=== PATIENT | male | born 1970 | race Caucasian/White ===

== ENCOUNTER → 2016-07-18 | Outpatient (CLI) | payer BC ==
[2016-07-18 13:46] LABS: ALT/SGPT 37 U/L (12-78); BLOOD UREA NITROGEN 11 mg/dl (7-18); BUN/CREATININE RATIO 10.8 (10-20); CALCIUM 8.6 mg/dl (8.5-10.1); CARBON DIOXIDE 25 mmol/L (21-32); CHLORIDE 103 mmol/L (98-107); GLUCOSE 88 mg/dl (70-99); POTASSIUM 3.9 mmol/L (3.5-5.1); SODIUM 137 mmol/L (136-145)
[2016-07-18 13:51] LABS: CHOLESTEROL 258 mg/dl (0-200); CHOLESTEROL/HDL RATIO 3.5; HDL CHOLESTEROL 73 mg/dl; LDL CHOLESTEROL CALCULATED 158 mg/dl; TRIGLYCERIDES 137 mg/dl (0-150); VERY LOW DENSITY LIPOPROT CALC 27 mg/dl
== END | disposition home or self-care (01) ==
LOC: C.LABMFLN 11:03
PROVIDERS: ATTEND Family Medicine
DX: I10 Essential (primary) hypertension (principal); E78.5 Hyperlipidemia, unspecified

== ENCOUNTER → 2016-10-15 | Outpatient (CLI) | payer BC ==
[2016-10-15 15:35] LABS: BLOOD UREA NITROGEN 11 mg/dl (7-18); BUN/CREATININE RATIO 10.2 (10-20); CALCIUM 8.7 mg/dl (8.5-10.1); CARBON DIOXIDE 28 mmol/L (21-32); CHLORIDE 102 mmol/L (98-107); GLUCOSE 97 mg/dl (70-99); POTASSIUM 4.3 mmol/L (3.5-5.1); SODIUM 136 mmol/L (136-145)
[2016-10-15 15:38] LABS: ALT/SGPT 38 U/L (12-78); CHOLESTEROL 159 mg/dl (0-200); CHOLESTEROL/HDL RATIO 2.3; HDL CHOLESTEROL 69 mg/dl; TRIGLYCERIDES 99 mg/dl (0-150); VERY LOW DENSITY LIPOPROT CALC 20 mg/dl
== END | disposition home or self-care (01) ==
LOC: C.LABMFLN 08:48
PROVIDERS: ATTEND Family Medicine
DX: E78.5 Hyperlipidemia, unspecified (principal)

== ENCOUNTER 2023-11-13 05:24 | Observation (INO) ==
--- NOTE | 2023-10-13 11:33 | PAT Medication Instructions ---
Medication Instructions Date of Service October 13, 2023 Home Medications Medication Instructions Recorded rizatriptan 10 mg tablet 10 mg PO .COMPLEX PRN migraine 06/17/23 headache #9 tabs fremanezumab-vfrm 225 mg/1.5 mL 675 mg (4.5 mL) subcut Q3MO #4.5 mL 09/18/23 subcutaneous syringe (Ajovy Syringe) gabapentin 600 mg tablet 600 mg PO TID #270 tabs 09/18/23 oxycodone-acetaminophen 7.5 mg-325 1 tab PO Q6H PRN pain (scale score 09/21/23 mg tablet (Percocet) 7-10) #30 tabs diltiazem HCl 240 mg capsule,24 See Rx Instructions .Route 09/30/23 hr,extended release .COMPLEX #90 caps naproxen 500 mg tablet (Naprosyn) 500 mg PO BID #60 tabs 10/05/23 rosuvastatin 20 mg tablet 20 mg PO HS #90 tabs 10/05/23 rizatriptan 10 mg tablet 10 mg PO .COMPLEX PRN migraine headache fremanezumab-vfrm 225 mg/1.5 mL subcutaneous syringe (Ajovy Syringe) 675 mg (4.5 mL) subcut Q3MO gabapentin 600 mg tablet 600 mg PO TID oxycodone-acetaminophen 7.5 mg-325 mg tablet (Percocet) 1 tab PO Q6H PRN pain (scale score 7-10) diltiazem HCl 240 mg capsule,24 hr,extended release See Rx Instructions .Route .COMPLEX naproxen 500 mg tablet (Naprosyn) 500 mg PO BID rosuvastatin 20 mg tablet 20 mg PO HS acetaminophen 650 mg tablet,extended release 650 mg PO Q12H PRN Pain candesartan 32 mg tablet 32 mg PO HS fluticasone propionate 50 mcg/actuation nasal spray,suspension 1 spray intranasal QAM folic acid 1 mg tablet 1 mg PO HS ASK your surgeon for instructions naproxen 500 mg tablet (Naprosyn) 500 mg PO BID ASK your prescriber and surgeon fremanezumab-vfrm 225 mg/1.5 mL subcutaneous syringe (Ajovy Syringe) 675 mg (4.5 mL) subcut Q3MO Take morning of surgery With a small sip of water, OTHERWISE NOTHING TO EAT OR DRINK AFTER MIDNIGHT: Rizatriptan 10 mg tablet 10 mg PO .COMPLEX PRN migraine headache (if needed) gabapentin 600 mg tablet 600 mg PO TID oxycodone-acetaminophen 7.5 mg-325 mg tablet (Percocet) 1 tab PO Q6H PRN pain (scale score 7-10) (if needed) diltiazem HCl 240 mg capsule,24 hr,extended release See Rx Instructions .Route .COMPLEX acetaminophen 650 mg tablet,extended release 650 mg PO Q12H PRN Pain (if needed) fluticasone propionate 50 mcg/actuation nasal spray,suspension 1 spray intranasal QAM Take evening before surgery rizatriptan 10 mg tablet 10 mg PO .COMPLEX PRN migraine headache (if needed) gabapentin 600 mg tablet 600 mg PO TID oxycodone-acetaminophen 7.5 mg-325 mg tablet (Percocet) 1 tab PO Q6H PRN pain (scale score 7-10) (if needed) rosuvastatin 20 mg tablet 20 mg PO HS acetaminophen 650 mg tablet,extended release 650 mg PO Q12H PRN Pain (if needed) candesartan 32 mg tablet 32 mg PO HS folic acid 1 mg tablet 1 mg PO HS Other Notes If you have any questions please call us at [phone] or [phone] or [phone] or [phone]
--- NOTE | 2023-10-20 15:30 | Anesthesiology Consultation ---
Date of Service October 20, 2023 Assessment & Plan (1) Encounter for pre-operative examination: Plan - awaiting PCP clearance; workload note sent. ( mild anemia (H&H: ), intermittent memory difficulties, arm weakness with cervical disc disorder, blood dyscrasia, lumbar disc disorder with occasional urinary incontinence, and reported snoring and witnessed apneas without previous sleep apnea testing.) - awaiting updated echocardiogram. - PCP office visit 09/27/23 [place]: "...Benign essential hypertension: Blood pressure well controlled...Aortic stenosis, mild: ECHO the heart is planned prior to his surgery..." Pt states this is currently scheduled after surgery with [facility] and last echocardiogram was more than 6 years. He was advised updated echocardiogram will be needed prior to surgery. He plans to contact ordering provider to attempt to have echocardiogram done prior to surgery. - Outpatient joint assessment: pending PCP clearance. Chart Review Chart Review: Pending: Refer to Additional Notes / Consult section and Patient seen in Pre Admission Testing Teaching & Discussion Pre-Anesthesia Teaching/Discussion Notes: Instructed NPO after midnight before surgery, except medications with 15 cc of water. Medication instructions provided according to the PAT guidelines. History Surgery Operation Date: 11/13/23 07:00 Proposed Procedures p Right Total Hip Arthroplasty - Huan Andino MD Height/Weight Height: 5 ft 11 in Weight: 90.7 kg Allergies Allergy/AdvReac Type Severity Reaction Status Date / Time codeine Allergy Mild angry and Verified 10/08/23 14:35 sick to stomach doxepin AdvReac Severe irritation Verified 10/20/23 15:45 and anger Medications Home Medications Medication Instructions Recorded Confirmed Last Taken rizatriptan 10 mg tablet 10 mg PO .COMPLEX PRN migraine 06/17/23 10/08/23 Unknown headache #9 tabs fremanezumab-vfrm 225 mg/1.5 mL 675 mg (4.5 mL) subcut Q3MO #4.5 mL 09/18/23 10/08/23 Unknown subcutaneous syringe (Ajovy Syringe) gabapentin 600 mg tablet 600 mg PO TID #270 tabs 09/18/23 10/08/23 Unknown oxycodone-acetaminophen 7.5 mg-325 1 tab PO Q6H PRN pain (scale score 09/21/23 10/08/23 Unknown mg tablet (Percocet) 7-10) #30 tabs diltiazem HCl 240 mg capsule,24 See Rx Instructions .Route 09/30/23 10/08/23 Unknown hr,extended release .COMPLEX #90 caps naproxen 500 mg tablet (Naprosyn) 500 mg PO BID #60 tabs 10/05/23 10/08/23 Unknown rosuvastatin 20 mg tablet 20 mg PO HS #90 tabs 10/05/23 10/08/23 Unknown acetaminophen 650 mg 650 mg PO Q12H PRN Pain 10/08/23 10/08/23 Unknown tablet,extended release candesartan 32 mg tablet 32 mg PO HS 10/08/23 10/08/23 Unknown fluticasone propionate 50 1 spray intranasal QAM 10/08/23 10/08/23 Unknown mcg/actuation nasal spray,suspension folic acid 1 mg tablet 1 mg PO HS 10/08/23 10/08/23 Unknown Past Medical History Medical History (Updated 10/21/23 @ 09:30 by Mariel Rebollar PA-C) Arm weakness chronic, bilat-denies change or worsening; follows with [facility] Benign essential hypertension controlled, stable per pt Blood dyscrasia "reason for needing daily folic acid" ? details BPH associated with nocturia Cervical disc disorder with radiculopathy chronic, patient denies change or worsening Chronic fatigue denies change or worsening Dysphagia chronic, denies choking, denies change or worsening History of asthma as a child-denies needing inhalers in adulthood Leukoplakia oral mucosa per patient noted in 2019 Lumbar stenosis pt denies change in chronic back pain; reports chronic intermittent urinary incontinence without change or worsening Memory loss or impairment chronic, denies impairment in daily activities Mild aortic stenosis Neuropathy hands and feet Osteoarthritis Sleep-disordered breathing pt states did not pursue advised sleep study in past Thoracic back pain chronic, denies change or worsening Patient denies h/o stroke, seizures, heart attack, heart failure, DM, blood clots/DVTs or blood transfusions. 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 History of colonoscopy History of esophagogastroduodenoscopy (EGD) History of surgery on lower extremity fx tib/fib and ankle>hardware intact right leg *2017 @ [facility] History of tooth extraction Past Anesthesia History No Hx of Anesthesia Complications and No Family Hx of Anesthesia Complications History of PONV No Hx of Motion Sickness and History of PONV (denies needing scop patch) Social History Smoking Status: Never smoker Do You Dip or Chew Tobacco: Yes (advised npo) Hx Alcohol Use: Yes Alcohol type: beer alcohol intake frequency: a few times a week (14 drinks total in a week) Hx Substance Use: No substance use type: does not use Review of Systems Patient denies chest pain, shortness of breath, dyspnea on exertion, reflux, fever, chills, cough, wheezing, or palpitations. Physical Exam Vital Signs Vitals BP 125/76 P 73 TEMP 98.3 SP02 97% on RA RESP 18 Physical Patient resting comfortably in chair in no acute distress, alert and oriented, responding appropriately throughout visit Full cervical extension range of motion without pain TMD 3.5 finger breadths Mallampati Score 3 Dentition: several caps/crowns and implant, denies chipped or loose teeth, or bridges Lungs: normal respiratory effort. Good air movement, clear throughout to auscultation, no adventitious breath sounds Cardiac: regular rate and rhythm, 2/6 systolic murmur, no gallops or rubs Carotid arteries: negative bruit bilat Lab Results Anesthesia Preop Results Results Anesthesia Widget: WBC 4.80 K/ul (4.8-10.8) 10/20/23 Hgb 12.7 g/dl (14.0-18.0) L 10/20/23 Hct 38.4 % (42.0-52.0) L 10/20/23 Plt 273 K/uL (130-400) 10/20/23 Na 138 mmol/L (136-145) 10/20/23 K 4.1 mmol/L (3.5-5.1) 10/20/23 Cl 100 mmol/L (98-107) 10/20/23 CO2 29 mmol/L (21-32) 10/20/23 BUN 16 mg/dl (6-23) 10/20/23 Creat 0.96 mg/dl (0.6-1.4) 10/20/23 Glucose Level 90 mg/dl (70-99(Fasting)) 10/20/23 PT 10.7 Seconds (9.0-12.0) 10/20/23 PTT 28 Seconds (21-31) 10/20/23 INR 1.0 (0.9-1.1) 10/20/23 Blood Type O Positive 10/20/23 Antibody Screen NEGATIVE 10/20/23 Testing Electrocardiogram Date: 10/20/23 NSR, rate 68 bpm Incomplete RBBB Chest X-Ray Date: 10/20/23 No acute process. Cervical Spine Date: 07/06/23 Multilevel multifactorial degenerative changes of the cervical spine with varying degrees of spinal canal and neural foraminal stenosis as described, most prominent at C3-C4, C5-6 and C6-7 Other Testing MRI lumbar spine 07/06/23 Developmental spinal canal stenosis with superimposed multilevel degenerative changes in the lumbar spine as described above, more pronounced at L3-L4 level with resultant [id number] spinal canal stenosis and moderate bilateral neural foraminal stenosis at this level. There has been interval slight pro gression as compared with prior study 04/05/2021. Stable postsurgical changes of laminectomy at T12-L1. Similar chronic compression fracture of the L1 vertebral body. Thoracic spine x-ray 04/16/23 Multilevel disc disease
--- NOTE | 2023-11-07 09:51 | History & Physical Report ---
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 He presents mostly with knee pain but I think the majority of his pain is coming from his hip. He is clearly got some knee arthritis but his hip is clearly worse than his knee. He does have a history of spine issues as well. He has been evaluated by a spine doctor and they feel his lower extremity issues are the main limiting factor. Said a neurological evaluation which will show some mild carpal tunnel syndrome and some fairly mild radiculopathy. He does have a little bit of weakness in his right leg but fairly mild. Plan: We talked about treatment options. This patient is fairly complex with multiple orthopedic issues. I think by far the severe most severe issue is is a vast necrosis of his hips is probably causing a lot of his knee pain as well. After extensive discussion we can proceed with a total hip replacement on the right side. He will likely need his left hip replaced and then maybe his right knee in the future. He is currently undergoing medical evaluation and clearance. He is had some blood in his stool and some chronic anemia. Pending definitive medical clearance. Assuming gets cleared we will proceed with a right total hip replacement. There is cements this procedure explained in depth. He understands that this is going to help him significantly but not can fix all of his problems. He may need further intervention in other areas in the future. There is cements of the procedure were explained and he understands. Informed consent was obtained. He is planning to have be discharged to home. His and son will assist in his care. He may need DVT prophylaxis in the hospital. (2) Right knee DJD: (3) Lumbar radiculopathy: (4) Anemia: (5) Lumbar disc disease: History of Present Illness Chief Complaint: . Right knee and leg pain. Primary Care Provider: Estiven Wade MD . 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 He has a remote history of a tibia fracture on the right side treated with an IM nail sev eral years ago in the [place] area. He also has a history of a benign spinal cord tumor removed previously about 20 years ago. Over the past several years she has developed persistent progressive increasing bilateral knee and leg pain right side greater than left. He is actually resorted to using crutches to get around. He describes severe pain discomfort and limping in the right leg more s o than the left. He seen our primary care doctors and treated conservatively without adequate relief. X-rays of the knee show some moderate to DJD. He is got x-rays of both hips reveal severe avascular necrosis with collapse. He has been through extensive evaluations by multiple practitioners. He seen the spine doctors and they clearly felt his lower extremity issues were bigger than his spine issues. He has no signs of recurrence of spinal tumor to date. He would like to proceed with intervention in order to become more mobilized. He is on chronic pain medicines. He does have a remote history of alcohol abuse of unclear severity. Allergies Allergy/AdvReac Type Severity Reaction Status Date / Time codeine Allergy Mild angry and Verified 10/08/23 14:35 sick to stomach doxepin AdvReac Severe irritation Verified 10/20/23 15:45 and anger Home Medications Medication Instructions Recorded Confirmed Type rizatriptan 10 mg tablet 10 mg PO .COMPLEX PRN migraine 06/17/23 10/08/23 Rx headache #9 tabs fremanezumab-vfrm 225 mg/1.5 mL 675 mg (4.5 mL) subcut Q3MO #4.5 mL 09/18/23 10/08/23 Rx subcutaneous syringe (Ajovy Syringe) gabapentin 600 mg tablet 600 mg PO TID #270 tabs 09/18/23 10/08/23 Rx acetaminophen 650 mg 650 mg PO Q12H PRN Pain 10/08/23 10/08/23 History tablet,extended release fluticasone propionate 50 1 spray intranasal QAM #48 grams 10/22/23 Rx mcg/actuation nasal spray,suspension oxycodone-acetaminophen 7.5 mg-325 1 tab PO Q6H PRN pain (scale score 10/23/23 Rx mg tablet (Percocet) 7-10) #60 tabs candesartan 32 mg tablet 32 mg PO HS #90 tabs 10/30/23 Rx diltiazem HCl 240 mg capsule,24 See Rx Instructions .Route 10/30/23 Rx hr,extended release .COMPLEX #90 caps folic acid 1 mg tablet 1 mg PO HS #90 tabs 10/30/23 Rx rosuvastatin 20 mg tablet 20 mg PO HS #90 tabs 10/30/23 Rx Wheeled Walker #1 ea 11/03/23 Rx omeprazole 40 mg capsule,delayed 40 mg PO BID #60 caps 11/05/23 Rx release Past Med/Surg History Problem List (Updated 11/07/23 @ 09:48 by Huan Andino MD) Right knee DJD Anemia Witnessed apneic spells Lumbar radiculopathy Urinary leakage Myalgia Allergic rhinitis (Acute) Carpal tunnel syndrome (Acute) Foot drop (Acute) Inflammatory arthropathy (Acute) Lumbar disc disease (Acute) Lumbosacral radiculopathy at L5 (Acute) Muscle cramps (Acute) Osteopenia (Acute) Bilateral hip joint arthritis Migraine with aura and without status migrainosus, not intractable Vitamin D deficiency (Chronic) Medical History Sleep-disordered breathing pt states did not pursue advised sleep study in past Mild aortic stenosis Arm weakness chronic, bilat-denies change or worsening; follows with [facility] Dysphagia chronic, denies choking, denies change or worsening Lumbar stenosis pt denies change in chronic back pain; reports chronic intermittent urinary incontinence without change or worsening BPH associated with nocturia Benign essential hypertension controlled, stable per pt Cervical disc disorder with radiculopathy chronic, patient denies change or worsening Chronic fatigue denies change or worsening Leukoplakia oral mucosa per patient noted in 2019 Memory loss or impairment chronic, denies impairment in daily activities Osteoarthritis Blood dyscrasia "reason for needing daily folic acid" ? 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 Family History Brother Diabetes Cardiovascular disease Hypercholesteremia Hypertension Mother Diabetes Cardiovascular disease Hypercholesteremia Multiple sclerosis Hypertension Other No family history of adverse response to anesthesia Social History Smoking Status: Never smoker Tobacco Type: Smokeless Tobacco (Dip or Chew) Second Hand Exposure: No; Do You Dip or Chew Tobacco: Yes (advised npo); Hx Alcohol Use: Yes Alcohol type: beer Alcohol Intake Frequency Comment: socially Hx Substance Use: No Preferred Language: [employer] Required: No Beliefs That Will Affect Care: None marital status: Current Living Situation: Family Current Living Situation Comment: and 2 sons Feels Safe at Home: Yes Childhood Exposure to Second-Hand Smoke: No Assistive Devices: Crutches and Glasses Review of Systems All systems reviewed & are unremarkable except as noted in HPI & below. Physical Exam . Physical examination reveals a pleasant middle-age male. Looks in reasonably good health. Examination of both legs reveal patient walks with crutches. He can walk on his own but limps markedly on the right side. Leg lengths appear pretty equal bilaterally. Got stiffness with hip motion with fairly limited motion. He cannot even quite internally rotate in neutral on either side. This does recreate pain. Examination the right knee reveals slight varus alignment to his knee. Got a incision related to his previous tibial nailing. Small knee effusion. Range of motion 5-1 20. No instability. Constitutional WD/WN, vitals as above Neck trachea midline, no thyromegaly Respiratory normal respiratory effort, lungs clear to auscultation Cardiovascular RRR, no murmur, no edema Gastrointestinal (Abdomen) normal bowel sounds, soft, nontender, no hepatosplenomegaly Results & Data Results & Data Laboratory Results . Diagnostic Findings . 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 He is got progressive arthritis in both hips with complete destruction of the joint space. Both hips are advanced. X-rays of the right knee were reviewed. It shows some moderate to medial compartment arthritis with about 50% loss of the joint space. MRI was reviewed. It shows the medial compartment arthritis with some bone marrow edema of the medial femoral condyle medial tibial plateau with extrusion of the medial meniscus with a degenerative tear. PG Care Time/CCT Total # of Minutes Spent Total Time Spent with Patient: Total time spent is greater than 50% in coordination of care (as documented) at patient's floor/unit and/or counseling patient: Coding Level of Care Code None Diagnoses Bilateral hip joint arthritis M16.0 Right knee DJD M17.11 Lumbar radiculopathy M54.16 Anemia D64.9 Lumbar disc disease M51.9
[2023-11-13] MEDS: ACETAMINOPHEN 500 MG TAB PO SCH ×2 (06:02→11:01)
[2023-11-13] MEDS: LR 500ML BOLUS, THEN 15ML/HR IV SCH (06:02)
[2023-11-13] MEDS: Scopolamine 1 MG TDSY TD SCH (06:03)
[2023-11-13] MEDS: FAMOTIDINE 20 MG TAB PO SCH (06:03)
[2023-11-13] MEDS: CeleBREX 200 MG CAP PO SCH (06:03)
[2023-11-13] MEDS: dexAMETHasone**PF** 10 MG/ML VIAL IV SCH (06:03)
[2023-11-13] MEDS: METOCLOPRAMIDE HCL 10 MG TABLET PO SCH (06:03)
[2023-11-13] MEDS: LR 60ML/HR IV SCH (06:04)
[2023-11-13] MEDS ORDERED: BUPIVACAINE 0.5 % 5 MG/1 ML PF 10ML VIAL ONE (06:08)
[2023-11-13] MEDS ORDERED: MIDAZOLAM HCL 1 MG/ML 2ML VIAL ONE (06:38)
[2023-11-13] MEDS ORDERED: fentaNYL citrate PF 100 MCG/2 ML VIAL ONE (06:38)
--- NOTE | 2023-11-13 06:46 | History & Physical Bridge Note ---
Date of Service November 13, 2023 History & Physical Bridge Note I have examined the patient, reviewed the History & Physical and in the interval since the performance of the History & Physical I have noted the following changes of clinical significance: no changes noted
[2023-11-13] MEDS ORDERED: PROPOFOL IV EMULSION 10 MG/ML 20 ML VIAL IV ONE (06:48)
[2023-11-13] MEDS ORDERED: LIDOCAINE 2% 2 ML VIAL/AMP(20MG/ML) INFIL ONE (06:48)
[2023-11-13] MEDS: TRANEXAMIC ACID 1,000 MG **IV Pre-op IV SCH (06:55)
[2023-11-13] MEDS: ceFAZolin 2000MG 2,000 MG/15 ML SYR IV SCH ×2 (07:04→14:53)
[2023-11-13] MEDS ORDERED: PHENYLEPHRINE 100MCG/ML 10ML SYR IV ONE (07:18)
[2023-11-13] MEDS ORDERED: ePHEDrine sulfate 50 MG/5 ML SYR ONE (07:30)
[2023-11-13] MEDS ORDERED: NOREPINEPHRINE BITARTRATE 1 MG/ML 4 ML VIAL IV ONE (08:04)
[2023-11-13] MEDS: BUPIVACAINE/EPINEPHRINE 0.5% MPF 1:200,000 30 ML VIAL ONE (08:23)
--- NOTE | 2023-11-13 08:53 | Operative Report ---
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 He had a significant collapse of the femoral head and deformity. He had an erosion of the superior dome of the acetabulum. Moderate-sized joint effusion. A lot of scarring in the soft tissues around the hip joint. Specimens Right femoral head sent for pathology. 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 Is been through extensive conservative treatment for knee arthritis as well as hip arthritis and hip pain. He is actually had to resort to using crutches to get around. X-rays show advanced hip arthritis secondary to avascular close on both hips. The right side was more than the left. He elected to see with a total hip arthroplasty. Description of Procedure Operative implants consist of: 1 Biomet G7 size 56 mm acetabular shell. 2. 6.5 cancellous acetabular screws 1 at 35 mm length and 1 of 30 mm length. 3. Highly cross-linked polyethylene liner with a 56 mm outer diameter, 36 mm diam with a luz placed inferior and posterior. 4. [place] hole school crossing guard. 5. DePuy Corail I size 12 KLA femoral stem. 6. +12/36 mm ceramic articular ball. The patient was taken to the op room, identified, placed on the operating table in the supine position. All contact areas were appropriately padded. IV antibiotics tried by anesthesia team. A spinal anesthetic and been implemented holding area. Patient was then placed in the left lateral decubitus position. Axillary roll was placed. Distal Birkett position was used for positioning. The right hip and leg were then prepped and draped in usual sterile fashion. A posterolateral approach to the right hip was then performed to a curvilinear incision centered over the greater trochanter. Sharp dissection was carried through subcutaneous tissue down of the IT band gluteal fascia through the IT band gluteal fascia was sized longitudinally in line with skin incision. The underlying greater bursa was excised. The piriformis and external rotators along with the posterior hip joint capsule were then released from the posterior aspect of the hip as a single layer. Great care was taken throughout the procedure protect the sciatic nerve at all times. Hip was internally rotated and dislocated. Femoral neck osteotomy cut was made with Final Cut about 11 mm above the lesser trochanter. Femoral head was removed and sent for pathology. The femur was retracted anteriorly. Attention drawn the acetabulum. The acetabular labrum was excised. There was a lot of scarring of the soft tissues around the acetabular had to spend some time with resecting the scar tissue and thickened the capsule. We did leave the posterior capsule for later repair. Sequential reaming the acetabular was then performed again with a size 45 and progressing up to 55. Reamed a little bit with a 56 mm reamer. I then placed a 56 mm cup in about 40 degrees lateral opening and 20 degrees of antev ersion. It was fixed with 2 screws. A trial liner was placed. There is no anterior osteophyte to removed. Attention drawn the femur. The proximal femur was entered with a cookie cutter followed by canal finder. Then broached beginning with size 8 and progressing up to a 12. Got excellent fitted to 12. I trialed the hip. With the +5 head the soft tissue laxity was extreme. Therefore we elected to place a +12 head. I realize has probably polly lengthen his leg a little bit but his other hip is severely diseased as well as getting needs surgery in the dxv-bnu-[id number] future. We elected to try to maximize his stability. I also elect to place the lip on the posterior aspect of the polyethylene to maximize the stability in flexion. The hip was fully stable in full extension and external rotation flexion to 90 degrees internally to about [address] We elect to place these implants. All trial implants were removed. [place] hole school crossing guard was placed. Highly cross- linked polyethylene liner with a luz placed inferior and posterior was then placed. A 12 KLA femoral stem was impacted in position. +12/36 mm ceramic articular ball was placed. Hip was located and once again found to be relatively stable. There was still little bit of soft tissue laxity but I felt this was the best we could make it. Attention drawn toward closing. The wound was irrigated coconuts pulsatile lavage solution. I did inject locally with 60 cc of half percent Marcaine with epinephrine. The posterior capsule and external rotators were then repaired through drill holes in the posterior trochanter with #2 Tycron suture. The IT band gluteal fascia then closed with #1 PDS suture running fashion through subcutaneous tissue then closed in 2 layers the deep layer #1 Vicryl suture and subcutaneous tissue with 2-0 Dexon suture in a buried interrupted fashion the skin was closed with skin stefan. Leg was then cleaned and dried and a sterile dressing with Xeroform, 4 fours, ABD pad, foam tape. The patient was then transferred to the recovery room in stable condition. Patient tolerated procedure well and there are no complications. Dalton Majano, my physician vet assistant, was present for the entire procedure. His assistance was essential and required for appropriate patient positioning, prepping and draping, surgical exposure, performing the technical details of the operation, placement the implants, closure of the wound, and placement of the sterile bandage. I attest to the content of the Intraoperative Record and any orders documented therein. Any exceptions are noted below.
--- NOTE | 2023-11-13 09:48 | XRay Report ---
XR hip 1V RT w pelvis HISTORY: 53 years-old Male IN PACU - Post Surgical right hip arthroplasty COMPARISON: 09/24/2023 TECHNIQUE: AP view of the pelvis with crosstable lateral view of the right hip FINDINGS: Unchanged appearance of the left femoral head and femoral acetabular joint with avascular necrosis, c ortical collapse with chronic remodeling and subchondral sclerosis. Right hip arthroplasty demonstrat es satisfactory alignment. Lateral skin stefan with expected postoperative soft tissue swelling and deep tissue air. Surgical clips of the scrotum. IMPRESSION: Right hip arthroplasty with expected postoperative changes. ACT 112: Negative or not required by law. The above report was generated using voice recognition software. It may contain grammatical, syntax o r spelling errors. Electronically signed by: Myles Villegas M.D. 11/13/2023 9:46 AM
[2023-11-13] MEDS ORDERED: ALUMINUM/MAGNESIUM SUSP 30 ML UDC PO PRN (09:52)
[2023-11-13] MEDS ORDERED: ONDANSETRON INJ 2 MG/ML 2 ML VIAL IV PRN (09:52)
[2023-11-13] MEDS ORDERED: NON-FORMULARY MEDICATION (Fremanezumab-Vfrm [Ajovy Syringe] 225 mg/1.5 mL syringe) SQ SCH (09:52)
[2023-11-13] MEDS ORDERED: NALOXONE HCL 0.4 MG/1 ML VIAL/CARP IV PRN (09:52)
[2023-11-13] MEDS ORDERED: bisacodyL 10 MG SUPP PR PRN (09:52)
[2023-11-13] MEDS ORDERED: METOCLOPRAMIDE HCL INJ 5 MG/ML 2 ML VIAL IV PRN (09:52)
[2023-11-13] MEDS ORDERED: MAGNESIUM HYDROXIDE SUSP 30 ML UDC PO PRN (09:52)
[2023-11-13] MEDS ORDERED: diphenhydrAMINE Capsule 25 MG CAP PO PRN (09:52)
[2023-11-13] MEDS ORDERED: RIZATRIPTAN BENZOATE 10 MG TAB PO PRN (09:52)
[2023-11-13] MEDS ORDERED: SENNA 8.6 MG TAB PO SCH (10:15)
[2023-11-13] MEDS: traMADol HCL 50 MG TABLET PO PRN (10:18)
[2023-11-13] MEDS: FLUTICASONE PROPIONATE NA SPR 16 GM BTL NAE SCH (10:56)
[2023-11-13] MEDS: KETOROLAC 30 MG/ML VIAL IV SCH (10:58)
[2023-11-13] MEDS: TAMSULOSIN HCL 0.4 MG CAP PO SCH (10:58)
[2023-11-13] MEDS: ASPIRIN 81 MG ECTAB PO SCH (10:59)
[2023-11-13] MEDS: PANTOprazole 40 MG TAB PO SCH (10:59)
[2023-11-13] MEDS: MULTIVITAMIN TAB PO SCH (11:00)
[2023-11-13] MEDS: DOCUSATE SODIUM 100 MG CAP PO SCH (11:00)
[2023-11-13] MEDS: GABAPENTIN 600 MG TAB PO SCH (11:01)
[2023-11-13] MEDS: SODIUM CHLORIDE 0.9% 1,000 ML IV SCH (11:47)
[2023-11-13] MEDS: TRANEXAMIC ACID / 0.7% NACL 1,000 MG/100 ML BAG IV SCH (14:43)
[2023-11-13] MEDS: HYDROmorphone INJ 0.5 MG/0.5 ML SYR IV PRN (14:49)
[2023-11-13] MEDS: Scopolamine CHECK PATCH PLACEMENT SCH (17:23)
[2023-11-13] MEDS: ASCORBIC ACID 500 MG TAB PO SCH (17:24)
[2023-11-13] MEDS: LOSARTAN POTASSIUM 50 MG TAB PO SCH (20:04)
[2023-11-13] MEDS: ROSUVASTATIN CALCIUM 10 MG TAB PO SCH (20:04)
[2023-11-13] MEDS: FOLIC ACID 1 MG TAB PO SCH (20:04)
[2023-11-13] MEDS: dilTIAZem HCL 240 MG CAPCR PO SCH (20:05)
[2023-11-13] MEDS: SENNA 8.6 MG TAB PO SCH (20:05)
--- OUTSIDE RECORDS SUMMARY | 2023-11-13 22:07 | External Medical Summary ---
Author Name Unknown Address Unknown Organization [id number]:LABORATORY [facility] [place] - [address] [place] [address] Laboratory Report Ordering Provider Test Date Status CARLOSLOYA 10/30/2023 08:11:37 Final Observation Date Value Abnormality Reference (Units ) Status Retic, % (auto) 10/30/2023 08:11:37 1.19 0.80-1.90 (%) Final Reticulocytes, Absolute 10/30/2023 08:11:37 52.8 31.3-100.1 (K/uL) Final Reticulocyte fraction, immature 10/30/2023 08:11:37 5.5 2.5-20.6 (%) Final Reticulocyte HGB 10/30/2023 08:11:37 33.7 29.7-37.4 (pg) Final Performing Location LABORATORY [facility] [place] - [address] [place] [address]
--- OUTSIDE RECORDS SUMMARY | 2023-11-13 22:07 | External Medical Summary ---
Author Name Unknown Address Unknown Organization [id number]:LAB[facility]ATORY [facility] [place] - [address] [place] [address] Laboratory Report Ordering Provider Test Date Status VINCENZO GONZALEZ 11/09/2023 06:47:52 Final Observation Date Value Abnormality Reference (Units ) Status Retic, % (auto) 11/09/2023 06:47:52 1.03 0.80-1.90 (%) Final Reticulocytes, Absolute 11/09/2023 06:47:52 47.0 31.3-100.1 (K/uL) Final Reticulocyte fraction, immature 11/09/2023 06:47:52 4.8 2.5-20.6 (%) Final Reticulocyte HGB 11/09/2023 06:47:52 33.4 29.7-37.4 (pg) Final Performing Location LABORATORY [facility] [place] - [address] [place] [address]
--- OUTSIDE RECORDS SUMMARY | 2023-11-13 22:07 | External Medical Summary ---
Author Name Unknown Address Unknown Organization [id number]:LABORATORY [facility] [place] - [address] [place] [address] Laboratory Report Ordering Provider Test Date Status VINCENZO GONZALEZ 10/30/2023 08:11:37 Final Observation Date Value Abnormality Reference (Units ) Status Vitamin B12 10/30/2023 08:11:37 334 530-9275 (pg/mL) Final Performing Location LABORATORY [facility] - [address] [place] [address]
--- OUTSIDE RECORDS SUMMARY | 2023-11-13 22:07 | External Medical Summary ---
Author Name Unknown Address Unknown Organization [id number]:LABORATORY [facility] [place] - [address] [place] [address] Laboratory Report Ordering Provider Test Date Status VINCENZO GONZALEZ 10/30/2023 08:11:37 Final Observation Date Value Abnormality Reference (Units ) Status Iron 10/30/2023 08:11:37 69 45-176 (ug /dL) Final Iron-binding capacity 10/30/2023 08:11:37 375 250-425 (ug/dL) Final Transferrin Sat % 10/30/2023 08:11:37 18 15 -55 (%) Final Performing Location LABORATORY [facility] [place] - [address] [place] [address]
--- OUTSIDE RECORDS SUMMARY | 2023-11-13 22:07 | External Medical Summary ---
Author Name Unknown Address Unknown Organization [id number]:LABORATORY [facility] - [address] [place] [address] Laboratory Report Ordering Provider Test Date Status VINCENZO GONZALEZ 11/09/2023 06:47:52 Final Observation Date Value Abnormality Reference (Units ) Status HCT 11/09/2023 06:47:52 43.2 40.0-48.4 (%) Final Performing Location LABORATORY [facility] - [address] [place] [address]
--- OUTSIDE RECORDS SUMMARY | 2023-11-13 22:07 | External Medical Summary | Summary of Care ---
Author Name Unknown Organization [facility] Address [address] [place] [address] Phone [phone] Care Team Providers Care Homicide Squad Commanding Officer Name Role Phone Estiven Wade MD Primary Care Provider [phone] Reason for Visit * Reason Comments Outpatient Testing Encounter Details Date Type Department Care Team (Late st Contact Info) Description 11/09/2023 6:50 AM EDT Laboratory Laboratory, [facility] [address] [place] [phone] [facility], Lab [address] [place] [address] Anemia Allergies Active Allergy Reactions Criticality Noted Date Comments Codeine Hives,Nausea/vomiting,Rash Medium 1 documented as of this encounter (statuses as of 11/09/2023) Medications Medication Sig Dispensed Refills Start Date End Date Status acetaminophen (TYLENOL) 500 MG Tablet Take 2 Tablets by mouth every 4 hours as needed. Active rosuvastatin (CRESTOR) 20 MG Tablet Take 1 Tablet by mouth in the morning. Active dilTIAZem HCl ER Beads 240 MG CP24 Take 1 Capsule by mouth in the morning. 07/08/2018 Active candesartan cilexetil (ATACAND) 16 MG TABS Take 1 Tablet by mouth in the morning. 07/23/2018 Active Fluticasone Propionate 50 MCG/ACT Nasal Suspension Administer 1 [place] into nostril in the morning. Active Folic Acid 5 MG Oral Capsule Take by mouth. Active Naproxen Sodium 220 MG Oral Capsule (Aleve) Take 1 Capsule by mouth 2 times a day with morning and evening meals. Active documented as of this encounter (statuses as of 11/09/2023) Active Problems Problem Noted Date Diagnosed Date Fracture of tibial shaft, right, closed 05/25/20 17 Closed fracture of proximal end of right fibula 05/25/2017 Other and unspecified hyperlipidemia 11/28/2014 HTN, goal below 140/90 09/25/2014 Favor Trichostasis Spinulosa R alar rim 11/21/19 11 documented as of this encounter (statuses as of 11/09/2023) Immunizations Name Administration Dates Next Due COVID-19 mRNA, LNP-s, No Pre serve, 2-Dose Series (Moderna) 08/04/2020,07/01/2020 COVID-19, mRNA, LNP-s, PF, B ooster, 100mcg/0.5mg (Moderna) 05/18/2021 TDAP, Age 7 and older, IM (Adacel) 11/07/2009 documented as of this encounter Social History Tobacco Use Types Packs/Day Years Used Date Smoking Tobacco: Never Smokeless Tobacco: Current Chew Alcohol Use Standard Drinks/Week Comments No 0 (1 standard drink = 0.6 oz pur e alcohol) Sex and Gender Information Value Date Recorded Sex Assigned at Not on file Gender Identity Not on file Sexual Orientation Not on file Job Start Date Occupation Industry Not on file Not on file Not on file documented as of this encounter Functional Status Functional Status Response Date of Assess ment Are you deaf or do you have serious difficulty h earing? No 05/25/2017 Are you blind or do you have serious difficulty seeing, even when wearing glasses? No 05/25/2017 Do you have serious difficul ty walking or climbing stairs? (5 years old or older) No 05/25/2017 Do you have difficulty dress ing or bathing? (5 years old or older) No 05/25/2017 Because of a physical, menta l, or emotional condition, do you have difficulty doing errands alone such as visiting a doctor s office or shopping? (15 years old or older) No 05/25/20 17 Cognitive Status Response Date of Assessm ent Because of a physical, menta l, or emotional condition, do you have serious difficulty concentrating, remembering, or making decisions? (5 years old or older) No 05/25/2017 documented as of this encounter Plan of Treatment Upcoming Encounters Date Type Department Care Team (Late st Contact Info) Description 12/11/2023 2:00 PM EDT Appointment Cardiac Studies, [facility] [address] [facility] [place] [address] Pending Results Name Type Priority Associated Diagnoses Date /Time HGB Lab Routine Anemia 11/09/2023 6:47 AM EDT HCT Lab Routine Anemia 11/09/2023 6:47 AM EDT RETICULOCYTE PANEL Lab Routine Anemia 11/09/2023 6:47 AM EDT IRON SCREEN, INCLUDING TIBC Lab Routine Anemia 11/09/2023 6:47 AM EDT Scheduled Procedures Name Priority Associated Diagnoses Date/Ti me COLONOSCOPY FLEXIBLE PROXIMA L DIAGNOSTIC Recall Screening for colon cancer Health Maintenance Due Date Last Done Comments HIV Screening 1985 Albumin/Creatinine Ratio 1988 Hepatitis C Screening 1988 Hepatitis B (1 of 3 - 19+ 3-dose series) 1989 Cologuard 2015 Sigmoidoscopy 2015 Depression Screening 09/26/2015 09/25/2014 DTaP,Tdap,and Td Vaccines (2 - Td or Tdap) 11/08/2019 11/07/2009 Zoster Vaccines (1 of 2) 2020 COVID-19 Vaccine ( - season) 2023 05/18/2021, 08/04/2020, 07/01/2020 GFR 09/18/2024 09/19/2023, 02/2023, 03/19/2021, Additional history exists Fecal Occult Blood Test 11/02/2024 11/03/2023 Diabetes Screening 09/18/2026 09/19/2023, 1 06/16/2022, 03/19/2021, Additional history exists Lipid Panel 04/16/2028 04/16/2023, 03/08, 06/26/2017, Additional history exists Colonoscopy 11/17/2032 11/17/2022, 11/17/2022 Colorectal Cancer Screening 11/17/2032 Influenza Vaccine (FLU shot) Completed 04/14/2023 GARDASIL-HPV IMMUNIZATION SERIES Aged Out No longer eligible based on patient's age to complete this topic MENINGOCOCCAL (MENACTRA/MENVEO) Aged Out No longer eligible based on patient's age to complete this topic Pneumococcal Vaccine: Pediatrics (0 to 5 Years) and At-Risk Patients (6 to 64 Years) Aged Out No longer eligible based on patient's age to complete this topic documented as of this encounter Medical Devices Implanted Type Area Clean Rice Grader And Reel Tender Device Identifier Shelf Expiration Date Model / Serial / Lot Screw Cannul 3.5mm 205.042 - [id number] Implanted:Qty: 1 on 05/26/2017 by Randall Winters MD at [facility] Right: Leg Lower SYNTHES 205.042 / / Screw Cannul 3.5mm 205.040 - [id number] Implanted:Qty: 1 on 05/26/2017 by Randall Winters MD at [facility] Right: Leg Lower SYNTHES 205.040 / / Nail Tib Ex [id number] 04.004.449s - [id number] Implanted:Qty: 1 on 05/26/2017 by Randall Winters MD at [facility] Right: Leg Lower SYNTHES 12/06/2022 04.004.449S / / Screw Ti Lock 5x42 04.005.532 - [id number] Implanted:Qty: 1 on 05/26/2017 by Randall Winters MD at [facility] Right: Leg Lower SYNTHES 04.005.532 / / Screw Ti Lock 5x42 04.005.532 - [id number] Implanted:Qty: 1 on 05/26/2017 by Randall Winters MD at [facility] Right: Leg Lower SYNTHES 04.005.532 / / Screw Ti Lock 5x46 04.005.536 - [id number] Implanted:Qty: 1 on 05/26/2017 by Randall Winters MD at [facility] Right: Leg Lower SYNTHES 04.005.536 / / Screw Ti Lock 5x36 04.005.526 - [id number] Implanted:Qty: 1 on 05/26/2017 by Randall Winters MD at [facility] Right: Leg Lower SYNTHES 04.005.526 / / documented as of this encounter Visit Diagnoses Diagnosis Anemia Anemia, unspecified documented in this encounter Advance Directives * Full Code (Latest Code Status on File) Date Activated Date Inactivated Comments 05/26/2017 10:45 AM 05/27/2017 10:42 PM . Question Answer Comments Discussion of Advance Directives occurred with: Not Discussed * Full Code Date Activated Date Inactivated Comments 05/25/2017 1:10 PM 05/26/2017 10:45 AM . Question Answer Comments Discussion of Advance Directives occurred with: Not Discussed Care Teams Homicide Squad Commanding Officer Relationship Specialty Start Date End Date Estiven Wade MD [address] [facility] [place] [id number] PCP - General Family Medicine 11/14/22 documented as of this encounter
--- OUTSIDE RECORDS SUMMARY | 2023-11-13 22:07 | External Medical Summary ---
Author Name Unknown Address Unknown Organization K01:[facility] [place] [address] [place] [address] Laboratory Report Ordering Provider Test Date Status VINCENZO GONZALEZ 11/09/2023 06:47:52 Final Observation Date Value Abnormality Reference (Units ) Status Iron 11/09/2023 06:47:52 63 45-176 (ug /dL) Final Iron-binding capacity 11/09/2023 06:47:52 370 250-425 (ug/dL) Final Transferrin Sat % 11/09/2023 06:47:52 17 15 -55 (%) Final Performing Location LAB[facility]ORY [facility] [place] - [address] [place] [address]
--- OUTSIDE RECORDS SUMMARY | 2023-11-13 22:07 | External Medical Summary | Summary of Care ---
Author Name Unknown Organization [facility] Address [address] [place] [address] Phone [phone] Care Team Providers Care Acid Conditioning Worker Name Role Phone Estiven Wade MD Primary Care Provider [phone] Reason for Visit * Reason Comments Outpatient Testing Encounter Details Date Type Department Care Team (Late st Contact Info) Description 11/03/2023 4:30 PM EDT Laboratory Laboratory, [address] [phone] Ave, Specimen Drop Off [facility] [address] [place] [address] Anemia Allergies Active Allergy Reactions Criticality Noted Date Comments Codeine Hives,Nausea/vomiting,Rash Medium 1 documented as of this encounter (statuses as of 11/03/2023) Medications Medication Sig Dispensed Refills Start Date [...] Propionate 50 MCG/ACT Nasal Suspension Administer 1 [place] into nostril in the morning. Active Folic Acid 5 MG Oral Capsule Take by mouth. Active Naproxen Sodium 220 MG Oral Capsule (Aleve) Take 1 Capsule by mouth 2 times a day with morning and evening meals. Active documented as of this encounter (statuses as of 11/03/2023) Active Problems Problem Noted Date Diagnosed Date Fracture of tibial shaft, right, closed 05/25/20 17 Closed fracture of proximal end of right fibula 05/25/2017 Other and unspecified hyperlipidemia 11/28/2014 HTN, goal below 140/90 09/25/2014 Favor Trichostasis Spinulosa R alar rim 11/21/19 11 documented as of this encounter (statuses as of 11/03/2023) Immunizations Name Administration Dates Next Due COVID-19 mRNA, LNP-s, No Pre serve, 2-Dose Series (Moderna) 08/04/2020,07/01/2020 COVID-19, mRNA, LNP-s, PF, B ooster, 100mcg/0.5mg (Moderna) 05/18/2021 TDAP (age 11 and older)(Adacel) 11/07/2009 documented as of this encounter Social [...] Upcoming Encounters Date Type Department Care Team (Renetta st Contact Info) Description 12/11/2023 2:00 PM EDT Appointment Cardiac Studies, [address] [place] [address] Pending Results Name Type Priority Associated Diagnoses Date /Time FECAL OCCULT BLOOD, EIA Lab Routine Anemia 11/03/2023 4:23 PM EDT Scheduled Procedures Name Priority Associated Diagnoses Date/Ti me COLONOSCOPY FLEXIBLE PROXIMA L DIAGNOSTIC Recall Screening for colon cancer Health Maintenance Due Date Last Done Comments HIV Screening 1985 Albumin/Creatinine Ratio 1988 Hepatitis C Screening 1988 Hepatitis B (1 of 3 - 19+ 3-dose series) 1989 Cologuard 2015 Fecal Occult Blood Test 2015 Sigmoidoscopy 2015 Depression Screening 09/26/2015 09/25/2014 DTaP,Tdap,and Td Vaccines (2 - Td or Tdap) 11/08/2019 11/07/2009 Zoster Vaccines (1 of 2) 2020 COVID-19 Vaccine (4 - season) 2023 05/18/2021, 08/04/2020, 07/01/2020 GFR 09/18/2024 09/19/2023, 1102/2023, 03/19/2021, Additional history exists Diabetes Screening 09/18/2026 09/19/2023, 1 06/16/2022, 03/19/2021, [...] this encounter Medical Devices Implanted Type Area Outside Sales Representative Device Identifier Shelf Expiration Date Model / Serial / Lot Screw Cannul 3.5mm 205.042 - [id number] Implanted:Qty: 1 on 05/26/2017 by Randall Winters MD at [facility] Right: Leg Lower SYNTHES 205.042 / / Screw Cannul 3.5mm 205.040 - [id number] Implanted:Qty: 1 on 05/26/2017 by Randall Winters MD at [facility] Right: Leg Lower SYNTHES 205.040 / / Nail Tib Ex [id number] 04.004.449s - [id number] Implanted:Qty: 1 on 05/26/2017 by Randall Winters MD at [facility] Right: Leg Lower SYNTHES 12/06/2022 04.004.449S / / Screw Ti Lock 5x42 04.005.532 - [id number] Implanted:Qty: 1 on 05/26/2017 by Randall Winters MD at [facility] Right: Leg Lower SYNTHES 04.005.532 / / Screw Ti Lock 5x42 04.005.532 - [id number] Implanted:Qty: 1 on 05/26/2017 by Randall Winters MD at [facility] Right: Leg Lower SYNTHES 04.005.532 / / Screw Ti Lock 5x46 04.005.536 - [id number] Implanted:Qty: 1 on 05/26/2017 by Randall Winters MD at [facility] Right: Leg Lower SYNTHES 04.005.536 / / Screw Ti Lock 5x36 04.005.526 - [id number] Implanted:Qty: 1 on 05/26/2017 by Randall Winters MD at [facility] Right: Leg Lower SYNTHES 04.005.526 / / [...] Directives occurred with: Not Discussed Care Teams Acid Conditioning Worker Relationship Specialty Start Date End Date Estiven Wade MD [address] [place] [address] PCP - General Family Medicine 11/14/22 documented as of this encounter
--- OUTSIDE RECORDS SUMMARY | 2023-11-13 22:07 | External Medical Summary ---
Author Name Unknown Address Unknown Organization K01:LABORATORY [facility] [place] - [address] [place] [address] Laboratory Report Ordering Provider Test Date Status VINCENZO GONZALEZ 11/03/2023 16:23:44 Final Observation Date Value Abnormality Reference (Units ) Status Occult Blood (EIA) 11/03/2023 16:23:44 Positive Abnormal N egative Final Performing Location LABORATORY C - [address] [place] [address]
[2023-11-14 06:04] LABS: Basophils # (auto) 0.01 K/uL (0.00-0.20); Basophils % (auto) 0.1 %; Hematocrit (blood only) 31.6 % (42.0-52.0); Hemoglobin 10.5 g/dl (14.0-18.0); Immature Granulocytes # (auto) 0.06 K/uL (0.01-0.20); Immature Granulocytes % (auto) 0.4 %; Lymphocytes # (auto) 0.81 K/uL (1.20-3.40); Lymphocytes % (auto) 5.9 %; Mean Corpuscular Hemoglobin 29.9 pg (25.0-34.0); Mean Corpuscular Hgb Conc 33.2 g/dL (32.0-36.0); Mean Platelet Volume 9.4 fL (9.4-12.4); Monocytes # (auto) 0.95 K/uL (0.11-0.59); Monocytes % (auto) 6.9 %; Neutrophils # (auto) 11.89 K/uL (1.40-6.50); Neutrophils % (auto) 86.7 %; Platelet Count 249 K/uL (130-400); RDW Coefficient of Variation 12.3 % (11.5-14.5); RDW Standard Deviation 40.8 fL (36.4-46.3); Red Blood Count 3.51 M/uL (4.70-6.10); White Blood Count 13.72 K/ul (4.8-10.8)
[2023-11-14 06:16] LABS: BUN Creatinine Ratio 19.8 (10-20); Calcium 8.7 mg/dl (8.6-10.3); Est GFR (African American) 111.1 ml/min; Est GFR (Non-African American) 95.9 ml/min
--- NOTE | 2023-11-14 07:44 | Surgery Progress Note ---
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 He is doing well. Pain is controlled. Hips located. He is neurologically intact. Plan: 1. DVT prophylaxis including thigh-high teds, SCDs, aspirin twice a day. 2. PT/OT. Weight-bear as tolerated. Right total hip protocol. 3. Pain control done okay with current pain regimen. 4. Disposition plan to discharge home with some home health if he does okay in therapy today. Admission and Anticipated Discharge Date Admission Date: November 13, 2023 Subjective 53-year-old gentleman postop day 1 from right hip replacement. He is doing pretty well. Pain is controlled. He was up and ambulating yesterday and even this morning. Pain is controlled. No chest pain or shortness of breath. Not feeling dizzy or lightheaded. Physical Exam Physical Exam: Physical examination was a pleasant middle-aged male. Lying bed looks comfortable. Examination of the right hip reveals the dressing be clean dry and intact. Leg lengths are equal. Hips located. He is neurologically intact. Respiratory: normal respiratory effort, lungs clear to auscultation Gastrointestinal (Abdomen): normal bowel sounds, soft, nontender, no hepatosplenomegaly Results & Data Vital Signs (Past 12 Hours) Vital Signs Temp Pulse Resp BP Pulse Ox O2 Del Method 11/14/23 07:31 36.6 C 69 16 116/65 96 Room Air 11/14/23 03:27 36.6 C 87 16 135/69 96 Room Air 11/13/23 23:41 36.5 C 64 15 130/71 97 Room Air Laboratory Results Hemoglobin is 10.5. Hematocrit is 31.6. Electrolytes are stable. PG Care Time/CCT Total # of Minutes Spent Total Time Spent with Patient: Total time spent is greater than 50% in coordination of care (as documented) at patient's floor/unit and/or counseling patient: Coding Level of Care Code 41954 Post Operative Follow-Up Diagnoses Status post right hip replacement Z96.641
[2023-11-14] MEDS: dexAMETHasone 10 MG in SYRINGE 0 ML IV SCH (08:28)
--- NOTE | 2023-11-16 14:12 | Discharge Summary ---
Date of Service November 16, 2023 Discharge Data Procedures Performed Operation Date: 11/13/23 07:00 Actual Procedures p Right Total Hip Arthroplasty(Right) - Huan Andino MD Hospital Course (1) Status post right hip replacement: This is a 53 year old patient admitted on 11/13/23 and underwent total hip arthroplasty. He tolerated the procedure well and there were no complications. Transferred to the PACU post op and later to the orthopedic floor for further care. He was given ancef for antibiotic prophylaxis. He was also given BRAYDEN stockings, SCDs, and aspirin for DVT prophylaxis. Hemoglobin, hematocrit, and vital signs were monitored during his hospital stay and remained stable. Did not require any blood transfusions. There were no complications during his hospital stay. By post op day #1 the patient was tolerating a regular diet, pain was reasonably controlled with oral pain medicine, and he was participating in physical therapy. On post op day #1 the patient was discharged home and set up with home health care. He was given printed discharge instructions including prescriptions for extra strength tylenol, aspirin, ketorolac, senokot, zofran, flomax, and tramadol. Continue hip precautions. Continue physical therapy, weight bearing as tolerated. Continue BRAYDEN stockings. Follow up approximately 2 weeks post op or sooner if there are problems or concerns. Coding Level of Care Code None Diagnoses Status post right hip replacement Z96.641
== END 2023-11-14 11:19 | disposition home health service (06) ==
LOC: ASU 05:24 → 3E 05:24

== ENCOUNTER 2023-12-04 21:53 | Inpatient (IN) ==
[2023-12-04 22:58] LABS: Basophils # (auto) 0.05 K/uL (0.00-0.20); Basophils % (auto) 1.2 %; Eosinophils # (auto) 0.11 K/uL (0.00-0.50); Eosinophils % (auto) 2.6 %; Hematocrit (blood only) 34.5 % (42.0-52.0); Hemoglobin 11.2 g/dl (14.0-18.0); Immature Granulocytes # (auto) 0.01 K/uL (0.01-0.20); Immature Granulocytes % (auto) 0.2 %; Lymphocytes # (auto) 0.58 K/uL (1.20-3.40); Lymphocytes % (auto) 13.6 %; Mean Corpuscular Hemoglobin 29.3 pg (25.0-34.0); Mean Corpuscular Hgb Conc 32.5 g/dL (32.0-36.0); Mean Corpuscular Volume 90.3 fL (80.0-100.0); Monocytes # (auto) 0.48 K/uL (0.11-0.59); Monocytes % (auto) 11.3 %; Neutrophils # (auto) 3.02 K/uL (1.40-6.50); Neutrophils % (auto) 71.1 %; Platelet Count 293 K/uL (130-400); RDW Standard Deviation 42.5 fL (36.4-46.3); Red Blood Count 3.82 M/uL (4.70-6.10); White Blood Count 4.25 K/ul (4.8-10.8)
[2023-12-04] MEDS ORDERED: VANCOMYCIN CONSULT ACTIVE PRN (23:21)
--- NOTE | 2023-12-04 23:46 | Emergency Department Note ---
Impression & Plan Wound cellulitis after surgery, Abnormal transaminases ED Provider Note NAME: CARMEN DIEZ AGE: 53 SEX: M : 1970 ARRIVES VIA: Walk-In INFORMANT: Patient, ED PROVIDER(S): Lisa Woodruff MD CHIEF COMPLAINT: Hip pain HPI: This is 53-year-old male presenting for hip pain. Patient notes that he had a hip replacement 3 weeks ago. He came in about 1 week ago after redness to the incision site. He came to the ER, was given vancomycin and eval by his orthopedic surgeon. Started on Bactrim and Keflex for the last 1 week. He notes that the pain never really improved and now the redness is spreading. He states the redness is now going father on his leg, tender to the touch and slightly swollen. He does not endorse pain in the actual hip mostly on just the surface. Patient notes that over the past 1 day he has now developed chills, and fever to 100.4. ROS: See above HPI for pertinent positives & negatives. A total of 10 systems reviewed and were otherwise negative. PHYSICAL EXAMINATION: General: resting comfortably in no acute distress Head: Normocephalic and atraumatic Eyes: Normal inspection, extraocular muscles intact Ear, nose, throat: Normal external exam Neck: Normal range of motion Respiratory: lungs clear to auscultation bilaterally Cardiovascular: Regular rate/rhythm, no murmur GI: soft, nontender, no guarding or rebound Extremities: nontender, moves all extremities, right hip pain with full range of motion Neuro: The patient awake and alert, appropriately conversive, no focal deficits, symmetric faces Skin: Surgical site of the right hip shows surrounding erythema tracking down the extremity, mildly swollen MEDICAL DECISION MAKING: This is a 53-year-old male seen for right hip pain. Consider cellulitis, septic joint, seroma -Blood work is reviewed showing no significant leukocytosis. Hemoglobin 11.2. -Will order blood cultures in addition -Patient blood work does reveal transaminitis of unclear etiology. -At this time will admit patient for cellulitis. Vancomycin ordered IV -Dr. Holliday consulted Differential diagnosis: See above ER treatment provided: See below Diagnostics interpreted by me: ECG: ECG independently interpreted by me with normal sinus rhythm, rate of 78, normal NH, incomplete right bundle branch block, normal QTc, no ST segment elevations consistent with STEMI criteria Cardiac Monitoring: An order was placed for continuous cardiac monitoring. The monitor shows a rate of 87 with sinus rhythm. Laboratory studies: As stated above and show below. Imaging studies: See below. Past Med/Surg History Problem List (Updated 12/05/23 @ 06:35 by Lisa Woodruff MD) Abnormal transaminases (Acute) Wound cellulitis after surgery (Acute) Asthma Mild aortic stenosis Sepsis as sequela of procedure Abnormal LFTs Cellulitis of right leg Infected prosthesis of right hip (Acute) Septic hip (Acute) Status post right hip replacement Right knee DJD Witnessed apneic spells Lumbar radiculopathy Urinary leakage Myalgia Allergic rhinitis (Acute) Carpal tunnel syndrome (Acute) Foot drop (Acute) Inflammatory arthropathy (Acute) Lumbar disc disease (Acute) Lumbosacral radiculopathy at L5 (Acute) Muscle cramps (Acute) Osteopenia (Acute) Bilateral hip joint arthritis Migraine with aura and without status migrainosus, not intractable Vitamin D deficiency (Chronic) Medical History Anemia Sleep-disordered breathing pt states did not pursue advised sleep study in past Mild aortic stenosis Arm weakness chronic, bilat-denies change or worsening; follows with [facility] Dysphagia chronic, denies choking, denies change or worsening Lumbar stenosis pt denies change in chronic back pain; reports chronic intermittent urinary incontinence without change or worsening BPH associated with nocturia Benign essential hypertension controlled, stable per pt Cervical disc disorder with radiculopathy chronic, patient denies change or worsening Chronic fatigue denies change or worsening Leukoplakia oral mucosa per patient noted in 2019 Memory loss or impairment chronic, denies impairment in daily activities Osteoarthritis Blood dyscrasia "reason for needing daily folic acid" ? 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 Family History Brother Diabetes Cardiovascular disease Hypercholesteremia Hypertension Mother Diabetes Cardiovascular disease Hypercholesteremia Multiple sclerosis Hypertension Other No family history of adverse response to anesthesia Social History Smoking Status: Never smoker Tobacco Type: Smokeless Tobacco (Dip or Chew) Second Hand Exposure: No; Do You Dip or Chew Tobacco: Yes (advised npo); Hx Alcohol Use: No Hx Substance Use: No Preferred Language: Tanzanian Communication Ability: Effective Shelf Filler Required: No Beliefs That Will Affect Care: None marital status: Current Living Situation: Family Current Living Situation Comment: and 2 sons Feels Safe at Home: Yes Safety Concerns: Feels Safe At This Time Childhood Exposure to Second-Hand Smoke: No Assistive Devices: Crutches and Glasses Allergies Allergies Allergy/AdvReac Type Severity Reaction Status Date / Time codeine Allergy Mild angry and Verified 12/04/23 10:30 sick to stomach doxepin AdvReac Severe irritation Verified 12/04/23 10:30 and anger Home Meds Previous Rx's Medication Instructions Recorded rizatriptan 10 mg tablet 10 mg PO .COMPLEX PRN migraine 06/17/23 headache #9 tabs fremanezumab-vfrm 225 mg/1.5 mL 675 mg (4.5 mL) subcut Q3MO #4.5 mL 09/18/23 subcutaneous syringe (Ajovy Syringe) gabapentin 600 mg tablet 600 mg PO TID #270 tabs 09/18/23 fluticasone propionate 50 1 spray intranasal QAM #48 grams 10/22/23 mcg/actuation nasal spray,suspension folic acid 1 mg tablet 1 mg PO HS #90 tabs 10/30/23 rosuvastatin 20 mg tablet 20 mg PO HS #90 tabs 10/30/23 omeprazole 40 mg capsule,delayed 40 mg PO BID #60 caps 11/05/23 release 3-in-1 Commode #1 ea 11/10/23 Wheeled Walker #1 ea 11/10/23 acetaminophen 500 mg tablet 1,000 mg (2 x 500 mg) PO TID pain 11/11/23 (Tylenol Extra Strength) 30 days #180 tabs aspirin 81 mg tablet,delayed 81 mg PO BID 45 days #90 tabs 11/11/23 release (Sally Low Dose Aspirin) sennosides 8.6 mg tablet (Senokot) 8.6 mg PO BID prevent constipation 11/11/23 14 days #28 tabs tramadol 50 mg tablet 50 - 100 mg (1 - 2 x 50 mg) PO Q6 11/19/23 PRN pain #40 tabs Bifidobacterium infantis 4 mg 4 mg PO BID #60 caps 12/04/23 capsule (Align) cephalexin 500 mg capsule 500 mg PO Q6 #16 caps 12/04/23 ferrous sulfate 325 mg (65 mg 325 mg PO TID #90 tabs 12/04/23 iron) tablet mecobalamin (vitamin B12) 1,000 1,000 mcg PO DAILY #60 ea 12/04/23 mcg lozenges ondansetron 4 mg disintegrating 4 mg PO Q8 PRN nausea #20 tabs 12/04/23 tablet sulfamethoxazole 400 1 tab PO BID 4 days #8 tabs 12/04/23 mg-trimethoprim 80 mg tablet (Bactrim) Results & Data (ED) Vital Signs Vital Signs - 24 hr 12/04/23 22:01 12/04/23 22:30 Temperature 37.3 C Temperature Source Oral Pulse Rate 86 79 Respiratory Rate 18 Respiratory Effort / Characteristics Non-Labored Respiratory Depth Normal Respiratory Pattern Regular Blood Pressure 137/79 Blood Pressure Mean 98 Pulse Oximetry 97 Oxygen Delivery Method Room Air Sepsis Recent Fever Within 48 Hours Yes Sepsis New/Unexplained Change in Mental Status N/A Sepsis Action Taken by Nursing No Action Required Laboratory Data 12/04/23 22:35 12/04/23 22:35 Lab Results 12/04/23 Range/Units 22:35 WBC 4.25 L (4.8-10.8) K/ul RBC 3.82 L (4.70-6.10) M/uL Hgb 11.2 L (14.0-18.0) g/dl Hct 34.5 L (42.0-52.0) % MCV 90.3 (80.0-100.0) fL MCH 29.3 (25.0-34.0) pg MCHC 32.5 (32.0-36.0) g/dL RDW Std Deviation 42.5 (36.4-46.3) fL RDW Coeff of Navid 13.0 (11.5-14.5) % Plt Count 293 (130-400) K/uL MPV 9.0 L (9.4-12.4) fL Immature Gran % (Auto) 0.2 % Neut % (Auto) 71.1 % Lymph % (Auto) 13.6 % [place] % (Auto) 11.3 % Eos % (Auto) 2.6 % Baso % (Auto) 1.2 % Neut # (Auto) 3.02 (1.40-6.50) K/uL Lymph # (Auto) 0.58 L (1.20-3.40) K/uL [place] # (Auto) 0.48 (0.11-0.59) K/uL Eos # (Auto) 0.11 (0.00-0.50) K/uL Baso # (Auto) 0.05 (0.00-0.20) K/uL Immature Gran # (Auto) 0.01 (0.01-0.20) K/uL PT 11.1 (9.0-12.0) Seconds INR 1.0 (0.9-1.1) APTT 26 (21-31) Seconds PTT Ratio 1.0 Sodium 138 (136-145) mmol/L Potassium 4.0 (3.5-5.1) mmol/L Chloride 103 (98-107) mmol/L Carbon Dioxide 30 (21-32) mmol/L Anion Gap 5 (3-11) BUN 12 (6-23) mg/dl Creatinine 1.11 (0.6-1.4) mg/dl Est Cr Clr Drug Dosing 82.0 ml/min Est GFR ( Amer) 87.4 ml/min Est GFR (Non-Af Amer) 75.4 ml/min BUN/Creatinine Ratio 10.8 (10-20) Glucose 108 H (70-99(Fasting)) mg/dl Calcium 9.1 (8.6-10.3) mg/dl Total Bilirubin 0.8 (0.2-1.0) mg/dl AST 124 H (13-39) U/L ALT 369 H (7-52) U/L Alkaline Phosphatase 533 H (34-104) U/L Total Protein 6.9 (6.0-8.3) gm/dl Albumin 4.0 (3.4-5.0) gm/dl Globulin 2.9 (2.5-4.0) gm/dl Albumin/Globulin Ratio 1.4 (0.9-2) Lipase 23 (11-82) U/L Hep Bs Antigen Negative (Negative) Hepatitis C Antibody Negative (Negative) Administered Medications Lactated Ringer's (Lr) 1,000 mls @ 80 mls/hr IV .[id number] DEBO Stop: 01/04/24 01:59 Last Admin: 12/05/23 02:17 Dose: 80 mls/hr Documented By: GURDEEP Discontinued Medications Vancomycin HCl 2,250 mg/ (Sodium Chloride) 545 mls @ 200 mls/hr IV NOW ONE Stop: 12/05/23 02:04 Last Infusion: 12/05/23 04:46 Dose: Infused Documented By: Admin: 12/05/23 01:04 Dose: 200 mls/hr Documented By: GURDEEP Acetaminophen (Ofirmev) 1,000 mg in 100 mls @ 400 mls/hr IV Q8H PRN PRN Reason: Pain or Fever Stop: 12/08/23 00:35 Last Infusion: 12/05/23 01:04 Dose: Infused Documented By: Admin: 12/05/23 00:46 Dose: 400 mls/hr Documented By: GURDEEP Piperacillin Sod/Tazobactam (Sod 4.5 gm/ Dextrose) 100 mls @ 200 mls/hr IV ONE ONE; Protocol Stop: 12/05/23 02:29 Last Infusion: 12/05/23 04:03 Dose: Infused Documented By: Admin: 12/05/23 02:56 Dose: 200 mls/hr Documented By: GURDEEP Discharge Plan Visit Data Chief Complaint: Infection Stated Complaint: FEVER, PAIN, SWELLING NEAR HIP SURGERY SITE, ED Provider: Lisa Woodruff Discharge Problem: Wound cellulitis after surgery, Abnormal transaminases Patient Disposition: Admitted As Inpatient Discharge Instructions Interventions: ED Discharge Assessment Last Done: 12/05/23 00:23
--- NOTE | 2023-12-04 23:58 | History & Physical Report ---
Date of Service December 04, 2023 Assessment & Plan (1) Infected prosthesis of right hip: (2) Septic hip: (3) Abnormal LFTs: (4) Sepsis as sequela of procedure: (5) Inflammatory arthropathy: (6) Asthma: (7) Migraine with aura and without status migrainosus, not intractable: Plan Sepsis due to infection of right total hip arthroplasty- Initial surgery on 11/07/2023 Emergency department visit on 11/27/2023, and received vancomycin 1750 mg IV, assessed by orthopedics and discharged to office follow-up Initial outpatient regimen cephalexin on 11/24 Addition of Bactrim on 11/26 Stop both cephalexin and Bactrim NPO Vancomycin IV per pharmacokinetic monitoring Zosyn 4.5 g IV every 8 hours Pantoprazole 40 mg IV daily Zofran 4 mg IV every 6 hours as needed Avoiding acetaminophen due to abnormal LFTs LR at 80 mL/h Serial CBC with differential and chemistry profile Follow wound culture and sensitivity Follow blood culture and sensitivity Abnormal LFTs- AST 124, ALT 360, ALP 533 INR 1.0 Order acute hepatitis profile May be secondary to use of Bactrim Monitor for DRESS, no eosinophils at this time Ordering CT scan abdomen and pelvis Dental abscess history- Reportedly treated in September, and reportedly treated at that time Had a temporary tooth placed, which is still present History of metal insert/post still present in upper front teeth Heart murmur- There was a question of a previous diagnosis of mild aortic stenosis. However, no hemodynamically significant valvular stenosis was noted on echocardiogram on 10/30/2023 Mild tricuspid regurgitation EF 55-60% If concern regarding dental process seeding heart valve and then seeding total hip arthroplasty, or some other combination, repeat echo could be performed History of Present Illness Chief Complaint: The patient presents to the emergency department with his , due to concerns regarding persistent and progressive redness, swelling and pain of his recently operated on right total hip, and the development of a temperature. Primary Care Provider: Estiven Wade MD The patient is a 53-year-old male with medical history including carpal tunnel syndrome, foot drop, inflammatory arthropathy, lumbar degenerative disc disease, L5 lumbosacral radiculopathy, bilateral hip joint arthritis, and migraine. He underwent a right total hip arthroplasty on 11/13/2023, and was discharged to home on 11/14/2023. He was seen in the emergency department on 11/27/2023 due to wound drainage, was given vancomycin IV, and assessed by orthopedic surgery during that visit. He was placed on Keflex on 11/24, and had Bactrim added on 11/26 by outpatient physicians. He presents to the emergency department this evening, due to his 's concerns regarding persistent and progressive redness, warmth, and temperature. Allergies Allergy/AdvReac Type Severity Reaction Status Date / Time codeine Allergy Mild angry and Verified 12/04/23 10:30 sick to stomach doxepin AdvReac Severe irritation Verified 12/04/23 10:30 and anger Home Medications Medication Instructions Recorded Confirmed Type rizatriptan 10 mg tablet 10 mg PO .COMPLEX PRN migraine 06/17/23 12/04/23 Rx headache #9 tabs fremanezumab-vfrm 225 mg/1.5 mL 675 mg (4.5 mL) subcut Q3MO #4.5 mL 09/18/23 12/04/23 Rx subcutaneous syringe (Ajovy Syringe) gabapentin 600 mg tablet 600 mg PO TID #270 tabs 09/18/23 12/04/23 Rx fluticasone propionate 50 1 spray intranasal QAM #48 grams 10/22/23 12/04/23 Rx mcg/actuation nasal spray,suspension folic acid 1 mg tablet 1 mg PO HS #90 tabs 10/30/23 12/04/23 Rx rosuvastatin 20 mg tablet 20 mg PO HS #90 tabs 10/30/23 12/04/23 Rx omeprazole 40 mg capsule,delayed 40 mg PO BID #60 caps 11/05/23 12/04/23 Rx release 3-in-1 Commode #1 ea 11/10/23 12/04/23 Rx Wheeled Walker #1 ea 11/10/23 12/04/23 Rx acetaminophen 500 mg tablet 1,000 mg (2 x 500 mg) PO TID pain 11/11/23 12/04/23 Rx (Tylenol Extra Strength) 30 days #180 tabs aspirin 81 mg tablet,delayed 81 mg PO BID 45 days #90 tabs 11/11/23 12/04/23 Rx release (Sally Low Dose Aspirin) sennosides 8.6 mg tablet (Senokot) 8.6 mg PO BID prevent constipation 11/11/23 12/04/23 Rx 14 days #28 tabs tramadol 50 mg tablet 50 - 100 mg (1 - 2 x 50 mg) PO Q6 11/19/23 12/04/23 Rx PRN pain #40 tabs Bifidobacterium infantis 4 mg 4 mg PO BID #60 caps 12/04/23 12/04/23 Rx capsule (Align) cephalexin 500 mg capsule 500 mg PO Q6 #16 caps 12/04/23 12/04/23 Rx ferrous sulfate 325 mg (65 mg 325 mg PO TID #90 tabs 12/04/23 12/04/23 Rx iron) tablet mecobalamin (vitamin B12) 1,000 1,000 mcg PO DAILY #60 ea 12/04/23 12/04/23 Rx mcg lozenges ondansetron 4 mg disintegrating 4 mg PO Q8 PRN nausea #20 tabs 12/04/23 12/04/23 Rx tablet sulfamethoxazole 400 1 tab PO BID 4 days #8 tabs 12/04/23 12/04/23 Rx mg-trimethoprim 80 mg tablet (Bactrim) Past Med/Surg History Problem List (Updated 12/05/23 @ 02:32 by Gadiel Gutierrez MD) Asthma Mild aortic stenosis Sepsis as sequela of procedure Abnormal LFTs Cellulitis of right leg Infected prosthesis of right hip (Acute) Septic hip (Acute) Status post right hip replacement Right knee DJD Witnessed apneic spells Lumbar radiculopathy Urinary leakage Myalgia Allergic rhinitis (Acute) Carpal tunnel syndrome (Acute) Foot drop (Acute) Inflammatory arthropathy (Acute) Lumbar disc disease (Acute) Lumbosacral radiculopathy at L5 (Acute) Muscle cramps (Acute) Osteopenia (Acute) Bilateral hip joint arthritis Migraine with aura and without status migrainosus, not intractable Vitamin D deficiency (Chronic) Medical History Anemia Sleep-disordered breathing pt states did not pursue advised sleep study in past Mild aortic stenosis Arm weakness chronic, bilat-denies change or worsening; follows with [facility] Dysphagia chronic, denies choking, denies change or worsening Lumbar stenosis pt denies change in chronic back pain; reports chronic intermittent urinary incontinence without change or worsening BPH associated with nocturia Benign essential hypertension controlled, stable per pt Cervical disc disorder with radiculopathy chronic, patient denies change or worsening Chronic fatigue denies change or worsening Leukoplakia oral mucosa per patient noted in 2019 Memory loss or impairment chronic, denies impairment in daily activities Osteoarthritis Blood dyscrasia "reason for needing daily folic acid" ? 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 Family History Brother Diabetes Cardiovascular disease Hypercholesteremia Hypertension Mother Diabetes Cardiovascular disease Hypercholesteremia Multiple sclerosis Hypertension Other No family history of adverse response to anesthesia Social History Smoking Status: Never smoker Tobacco Type: Smokeless Tobacco (Dip or Chew) Second Hand Exposure: No; Do You Dip or Chew Tobacco: Yes (advised npo); Hx Alcohol Use: No Hx Substance Use: No Preferred Language: Sammarinese Communication Ability: Effective Writing Center Director Required: No Beliefs That Will Affect Care: None marital status: Current Living Situation: Family Current Living Situation Comment: and 2 sons Feels Safe at Home: Yes Safety Concerns: Feels Safe At This Time Childhood Exposure to Second-Hand Smoke: No Assistive Devices: Crutches and Glasses Review of Systems Review of Systems: The patient denies chest pain, palpitations, shortness of breath, dyspnea on exertion, cough, sore throat, weight change, fatigue, nausea, vomiting, diarrhea , constipation, abdominal pain, pelvic pain, blood in urine or stool, dysuria, urinary frequency or urgency, lightheadedness, dizziness, memory loss, loss of consciousness, imbalance, focal weakness, numbness or tingling in arms or legs, generalized arthralgias or myalgias, back or neck pain, or night sweats. The review of systems is otherwise negative other than for that already noted above, and at least 10 systems have been reviewed. Physical Exam Physical Exam: The patient is awake, alert and oriented 3, well developed and well nourished, normocephalic and atraumatic, lying in bed and in no acute distress. HEENT--PERRL, EOMI, mucous membranes and oropharynx normal. Neck--supple. No JVD. No bruits. Thyroid normal, trachea midline, no adenopathy. Heart--normal S1 and S2. 2/6 systolic murmur. No rubs or gallops. Lungs--clear bilaterally, no respiratory distress, no accessory muscle use. Abdomen--normal bowel sounds and soft. Nontender. Nondistended, no hernias or masses, no organomegaly. Extremities--No edema. There are good distal pulses b/l. Dermatologic--normal except for erythema and warmth around right incision margin Neurologic--cranial nerves II through XII grossly intact. Rheumatologic--limited exam right hip due to pain Psychiatric--normal affect. Results & Data Results & Data Vital Signs (Past 12 Hours) Vital Signs Temp Pulse Resp BP Pulse Ox O2 Del Method 12/04/23 22:30 79 12/04/23 22:01 37.3 C 86 18 137/79 97 Room Air Laboratory Results Laboratory Results WBC 4.25 K/ul (4.8-10.8) L 12/04/23: RBC 3.82 M/uL (4.70-6.10) L 12/04/23 22:35 Hgb 11.2 g/dl (14.0-18.0) L 12/04/23 22: Hct 34.5 % (42.0-52.0) L 12/04/23 22:35 MCV 90.3 fL (80.0-100.0) 12/04/23 22: MCH 29.3 pg (25.0-34.0) 12/04/23: MCHC 32.5 g/dL (32.0-36.0) 12/04/23:35 RDW Std Deviation 42.5 fL (36.4-46.3) 12/04/23 22: RDW Coeff of Navid 13.0 % (11.5-14.5) 12/04/23: Plt Count 293 K/uL (130-400) 12/04/23 22:35 MPV 9.0 fL (9.4-12.4) L 12/04/23 22:35 Immature Gran % (Auto) 0.2 % 12/04/23 22:35 Neut % (Auto) 71.1 % 12/04/23 22:35 Lymph % (Auto) 13.6 % 12/04/23 22:35 [place] % (Auto) 11.3 % 12/04/23 22:35 Eos % (Auto) 2.6 % 12/04/23 22:35 Baso % (Auto) 1.2 % 12/04/23 22:35 Neut # (Auto) 3.02 K/uL (1.40-6.50) 12/04/23 22:35 Lymph # (Auto) 0.58 K/uL (1.20-3.40) L 12/04/23 22:35 [place] # (Auto) 0.48 K/uL (0.11-0.59) 12/04/23 22:35 Eos # (Auto) 0.11 K/uL (0.00-0.50) 12/04/23 22:35 Baso # (Auto) 0.05 K/uL (0.00-0.20) 12/04/23 22:35 Immature Gran # (Auto) 0.01 K/uL (0.01-0.20) 12/04/23 22:35 PT 11.1 Seconds (9.0-12.0) 12/04/23 22:35 INR 1.0 (0.9-1.1) 12/04/23 22:35 APTT 26 Seconds (21-31) 12/04/23 22:35 PTT Ratio 1.0 12/04/23 22:35 Sodium 138 mmol/L (136-145) 12/04/23 22:35 Potassium 4.0 mmol/L (3.5-5.1) 12/04/23 22:35 Chloride 103 mmol/L (98-107) 12/04/23 22:35 Carbon Dioxide 30 mmol/L (21-32) 12/04/23 22:35 Anion Gap 5 (3-11) 12/04/23 22:35 BUN 12 mg/dl (6-23) 12/04/23 22:35 Creatinine 1.11 mg/dl (0.6-1.4) 12/04/23 22:35 Est Cr Clr Drug Dosing 82.0 ml/min 12/04/23 22:35 Est GFR ( Amer) 87.4 ml/min 12/04/23 22:35 Est GFR (Non-Af Amer) 75.4 ml/min 12/04/23 22:35 BUN/Creatinine Ratio 10.8 (10-20) 12/04/23 22:35 Glucose 108 mg/dl (70-99(Fasting)) H 12/04/23 22:35 Calcium 9.1 mg/dl (8.6-10.3) 12/04/23 22:35 Total Bilirubin 0.8 mg/dl (0.2-1.0) 12/04/23 22:35 AST 124 U/L (13-39) H 12/04/23 22:35 ALT 369 U/L (7-52) H 12/04/23 22:35 Alkaline Phosphatase 533 U/L (34-104) H 12/04/23 22:35 Total Protein 6.9 gm/dl (6.0-8.3) 12/04/23 22:35 Albumin 4.0 gm/dl (3.4-5.0) 12/04/23 22:35 Globulin 2.9 gm/dl (2.5-4.0) 12/04/23 22:35 Albumin/Globulin Ratio 1.4 (0.9-2) 12/04/23 22:35 Code Status & VTE Plan Code Status Full code VTE Prophylaxis Plan VTE Prophylaxis will be ordered: Yes PG Care Time/CCT Total # of Minutes Spent Total Time Spent with Patient: Total time spent is greater than 50% in coordination of care (as documented) at patient's floor/unit and/or counseling patient: Coding Level of Care Code 54575 INT INP/OBS CARE 375MIN Diagnoses Infected prosthesis of right hip T84.51XA Septic hip M00.9 Abnormal LFTs R79.89 Sepsis as sequela of procedure T81.44XS Inflammatory arthropathy M19.90 Asthma J45.909 Migraine with aura and without status migrainosus, not intractable G43.109
[2023-12-05 00:34] LABS: Bilirubin,Total 0.8 mg/dl (0.2-1.0); Calcium 9.1 mg/dl (8.6-10.3)
[2023-12-05 00:40] LABS: Albumin Globulin Ratio 1.4 (0.9-2); BUN Creatinine Ratio 10.8 (10-20); Est GFR (African American) 87.4 ml/min; Est GFR (Non-African American) 75.4 ml/min; Globulin 2.9 gm/dl (2.5-4.0); Total Protein 6.9 gm/dl (6.0-8.3)
[2023-12-05] MEDS: ACETAMINOPHEN 1,000 MG/100 ML VIAL IV PRN (00:46)
[2023-12-05] MEDS: VANCOMYCIN HCL 2,250 MG in SODIUM CHLORIDE 0.9% 500 ML IV ONE (01:04)
[2023-12-05] MEDS: LACTATED RINGER'S 1,000 ML IV SCH (02:17)
[2023-12-05 02:23] LABS: Partial Thromboplastin Time 26 Seconds (21-31); Prothrombin Time 11.1 Seconds (9.0-12.0)
[2023-12-05] MEDS: PIPERACILLIN/TAZOBACTAM 4.5 GM in DEXTROSE 5% MINI-B 100 ML IV ONE (02:56)
[2023-12-05 03:29] LABS: HepB Surface Ag with confirm Negative (Negative)
[2023-12-05 03:34] LABS: HepC Ab Rflx HepCQuant RNA Negative (Negative)
--- NOTE | 2023-12-05 04:07 | CT Scan Report ---
Exam(s): CT RIGHT HIP Without Contrast EXAM: CT Right Lower Extremity Without Intravenous Contrast, Hip CLINICAL HISTORY: Reason for exam: postop R KATIE infection. TECHNIQUE: Axial computed tomography images of the right hip without intravenous contrast. CTDI is 33 mGy and DLP is 1473.6 mGy-cm. Automated exposure control was utilized for the study. A dose lowering technique was utilized adhering to the principles of ALARA. Metal artifact and noncontrast technique limits evaluation. COMPARISON: No relevant prior studies available. FINDINGS: Bones/joints: Hip prosthesis with metal artifact limiting evaluation. No definite prosthetic loosening or acute bony abnormality.. No acute fracture. No dislocation. Soft tissues: Ovoid hypodense fluid collection subcutaneous fat extending to the greater trochanter femur measuring 10 x 3.8 x 2 cm, nonspecific, possible seroma, hematoma and/or abscess. IMPRESSION: 1. Suspect soft tissue abscess superficial to the greater trochanter femur. 2. Right hip prosthesis with metal artifact limiting detail. Electronically signed by: Ev Garcia M.D. 12/05/23 04:06 AM
--- NOTE | 2023-12-05 04:10 | CT Scan Report ---
Exam(s): CT ABDOMEN + PELVIS Without Contrast EXAM: CT Abdomen and Pelvis Without Intravenous Contrast CLINICAL HISTORY: Reason for exam: abnormal LFT's. Postop R KATIE infection. TECHNIQUE: Axial computed tomography images of the abdomen and pelvis without intravenous contrast. CTDI is 23.64 mGy and DLP is 1413.28 mGy-cm. Automated exposure control was utilized for the study. A dose lowering technique was utilized adhering to the principles of ALARA. COMPARISON: None. FINDINGS: Lung bases: Clear. Liver: Minimal granuloma. Gallbladder and bile ducts: Normal gallbladder. No ductal dilation. Pancreas: No ductal dilation. Spleen: Scattered granulomata. Adrenals: Unremarkable. Kidneys and ureters: No renal stone or hydronephrosis. Stomach and bowel: No obstruction. Moderate fecal loading of the colon. No diverticulosis or diverticulitis. Appendix: Normal. Intraperitoneal space: No free air or fluid. Bones/joints: No acute fracture. Soft tissues: Hypodense collections superficial to the greater trochanter right femur, see separately dictated CT right hip report. Metal artifact from right hip prosthesis limits evaluation. Vasculature: No aortic aneurysm. Lymph nodes: No enlarged lymph nodes. Bladder: Equivocal wall thickening, cannot rule out cystitis. Limited evaluation due to metal artifact right hip prosthesis. Reproductive: Unremarkable as visualized. IMPRESSION: 1. Equivocal cystitis, correlate clinically. 2. Fluid collection in the soft tissues adjacent to the right hip, see separately dictated report. Electronically signed by: Ev Garcia M.D. 12/05/23 04:09 AM
[2023-12-05 07:27] LABS: Basophils # (auto) 0.05 K/uL (0.00-0.20); Basophils % (auto) 1.3 %; Eosinophils # (auto) 0.12 K/uL (0.00-0.50); Eosinophils % (auto) 3.1 %; Hematocrit (blood only) 32.1 % (42.0-52.0); Hemoglobin 10.5 g/dl (14.0-18.0); Immature Granulocytes # (auto) 0.01 K/uL (0.01-0.20); Immature Granulocytes % (auto) 0.3 %; Lymphocytes # (auto) 0.67 K/uL (1.20-3.40); Lymphocytes % (auto) 17.3 %; Mean Corpuscular Hemoglobin 29.4 pg (25.0-34.0); Mean Corpuscular Hgb Conc 32.7 g/dL (32.0-36.0); Mean Corpuscular Volume 89.9 fL (80.0-100.0); Mean Platelet Volume 9.2 fL (9.4-12.4); Monocytes # (auto) 0.51 K/uL (0.11-0.59); Monocytes % (auto) 13.1 %; Neutrophils # (auto) 2.52 K/uL (1.40-6.50); Neutrophils % (auto) 64.9 %; Platelet Count 275 K/uL (130-400); RDW Standard Deviation 42.7 fL (36.4-46.3); Red Blood Count 3.57 M/uL (4.70-6.10); White Blood Count 3.88 K/ul (4.8-10.8)
--- NOTE | 2023-12-05 07:37 | Hospitalist Progress Note ---
Date of Service December 05, 2023 Assessment & Plan (1) Infected prosthesis of right hip: Plan: Sepsis due to infection of right total hip arthroplasty- Initial surgery on 11/07/2023 Emergency department visit on 11/27/2023, and received vancomycin 1750 mg IV, assessed by orthopedics and discharged to office follow-up. Blood cultures from 11/26 ER visit NGTD x5days Initial outpatient regimen cephalexin on 11/24, addition of Bactrim on 11/26-Stop both cephalexin and Bactrim. CT hip noting ovoid hypodense fluid collection subcutaneous fat extending to the greater trochanter femur measuring 10 x 3.8 x 2 cm, nonspecific, possible seroma, hematoma and/or abscess. Impression w/ suspect soft tissue abscess superficial to greater trochenter femur NPO this morning, orthopedics consulted/ID consulted Wound/blood cultures pending Vancomycin, Zosyn IV abx IVF while NPO Per ortho, no plans for intervention at this time, NPO cancelled and diet provided. Pain control w/ added morphine, tramadol. Of note, had been taking 1gm tylenol ~q4h at home for pain. Avoiding further tylenol for now. LFts trending down on repeat Monitor labs/exam on repeat Dental abscess history- Reportedly treated in September, and reportedly treated at that time. Had a temporary tooth placed, which is still present. History of metal insert/post still present in upper front teeth Heart murmur- There was a question of a previous diagnosis of mild aortic stenosis. However, no hemodynamically significant valvular stenosis was noted on echocardiogram on 10/30/2023 Mild tricuspid regurgitation EF 55-60% If concern regarding dental process seeding heart valve and then seeding total hip arthroplasty, or some other combination, repeat echo could be performed reassuring that blood cultures from ER on 11/26 prior to initiation of any antibiotics have been NGTD x 5 days (2) Septic hip: Plan: see above (3) Abnormal LFTs: Plan: Abnormal LFTs- AST 124, ALT 360, ALP 533 INR 1.0 Order acute hepatitis profile May be secondary to use of Bactrim Monitor for DRESS, no eosinophils at this time Ordering CT scan abdomen and pelvis -- ?cystitis, normal gallbladder SUSPECT COMBINATION OF BACTRIM USE IN SETTING OF EXCESSIVE TYLENOL USE FOR PAIN HE RAN OUT OF HIS TRAMADOL WHICH WAS EFFECTIVE FOR PAIN -- DID GET 1X DOSE IV TYLENOL PER PATIENT REQUEST PRIOR TO FURTHER DISCUSSION ON HOME TYLENOL USE, WILL AVOID FURTHER NO RUQ PAIN ON EXAM MONITOR LFTS ON REPEAT, avoid hepatotoxins (4) Sepsis as sequela of procedure: (5) Inflammatory arthropathy: (6) Asthma: (7) Migraine with aura and without status migrainosus, not intractable: Plan continued inpatient stay, monitor on antibiotics as suspect at least superficial infection given reports of purulent drainage from his incision last week and fever at home prior to admission Admission and Anticipated Discharge Date Admission Date: December 04, 2023 Supervising Physician Co-Signing Physician Notes The patient was not seen by me. The chart was reviewed. Case discussed with BERTIN Day. Agree with assessment and plan Subjective Eval this morning, Sourav DENTON in to see when entered room. Patient had pain/drainage from his incision, which is where most of the pain is located at, last thursday and came to ER, got abx and subsequently placed on oral antibiotics in follow up but presented due to worsening. Initially felt great after initial surgery, was elective. But then had worsening last thursday, had fevers/chills prior to presentation and reported some chills last night. He does report issues w/ nausea w/ pain medications but prior tramadol had been effective. Did give dose of tylenol as req this morning as LFTs improving however further discussion about dosing at home and patien admits he ran out of tramadol and had been taking 2 tablets of tylenol about every four hours at home and will avoid further tylenol for now and monitor LFTs. No chest pain/shortness of breath. Is thirsty. Waiting to see about washout w/ Dr Andino and remains NPO for now. Questions/concerns addressed at this time. Physical Exam Physical Exam: 53yo male sitting up in bed, ortho pa in room, NAD, reporting feels better head atraumatic, normocephalic, mmm resp: even/unlabored, no w/c/r, on room air CV: RRR, +systolic murmur, no pitting edema/calf tenderness GI +BS, soft/NT no tiwari MSK/Neuro: steri-strips to RIGHT hip, +tenderness/warmth/erythema along incision (reported prior purulent drainage from distal incision on Thursday), no decreased ROM at the hip, NVI, pulses present Psych: aox3, cooperative with exam Results & Data Results & Data Vital Signs (Past 12 Hours) Vital Signs Temp Pulse Pulse Resp BP BP Pulse Ox 12/05/23 01:00 36.8 C 87 16 161/83 H 99 12/05/23 00:17 76 16 134/76 100 12/04/23 22:30 79 12/04/23 22:01 37.3 C 86 18 137/79 97 O2 Del Method 12/05/23 01:00 Room Air 12/05/23 00:17 Room Air 12/04/23 22:30 12/04/23 22:01 Room Air Laboratory Results 12/05/23 12/05/23 12/04/23 Range/Units 08:40 06:28 22:35 WBC 3.88 L 4.25 L (4.8-10.8) K/ul RBC 3.57 L 3.82 L (4.70-6.10) M/uL Hgb 10.5 L 11.2 L (14.0-18.0) g/dl Hct 32.1 L 34.5 L (42.0-52.0) % MCV 89.9 90.3 (80.0-100.0) fL MCH 29.4 29.3 (25.0-34.0) pg MCHC 32.7 32.5 (32.0-36.0) g/dL RDW Std Deviation 42.7 42.5 (36.4-46.3) fL RDW Coeff of Navid 13.0 13.0 (11.5-14.5) % Plt Count 275 293 (130-400) K/uL MPV 9.2 L 9.0 L (9.4-12.4) fL Immature Gran % (Auto) 0.3 0.2 % Neut % (Auto) 64.9 71.1 % Lymph % (Auto) 17.3 13.6 % [place] % (Auto) 13.1 11.3 % Eos % (Auto) 3.1 2.6 % Baso % (Auto) 1.3 1.2 % Neut # (Auto) 2.52 3.02 (1.40-6.50) K/uL Lymph # (Auto) 0.67 L 0.58 L (1.20-3.40) K/uL [place] # (Auto) 0.51 0.48 (0.11-0.59) K/uL Eos # (Auto) 0.12 0.11 (0.00-0.50) K/uL Baso # (Auto) 0.05 0.05 (0.00-0.20) K/uL Immature Gran # (Auto) 0.01 0.01 (0.01-0.20) K/uL ESR 32 H (0-20) mm/hr PT 11.1 (9.0-12.0) Seconds INR 1.0 (0.9-1.1) APTT 26 (21-31) Seconds PTT Ratio 1.0 Sodium 141 138 (136-145) mmol/L Potassium 4.0 4.0 (3.5-5.1) mmol/L Chloride 107 103 (98-107) mmol/L Carbon Dioxide 29 30 (21-32) mmol/L Anion Gap 5 5 (3-11) BUN 14 12 (6-23) mg/dl Creatinine 0.97 1.11 (0.6-1.4) mg/dl Est Cr Clr Drug Dosing 101.3 82.0 ml/min Est GFR ( Amer) 102.9 87.4 ml/min Est GFR (Non-Af Amer) 88.8 75.4 ml/min BUN/Creatinine Ratio 14.4 10.8 (10-20) Glucose 128 H 108 H (70-99(Fasting)) mg/dl Calcium 8.4 L 9.1 (8.6-10.3) mg/dl Total Bilirubin 0.7 0.8 (0.2-1.0) mg/dl AST 88 H 124 H (13-39) U/L ALT 294 H 369 H (7-52) U/L Alkaline Phosphatase 436 H 533 H (34-104) U/L C-Reactive Protein 1.87 H (0-0.5) mg/dl Total Protein 6.2 6.9 (6.0-8.3) gm/dl Albumin 3.5 4.0 (3.4-5.0) gm/dl Globulin 2.7 2.9 (2.5-4.0) gm/dl Albumin/Globulin Ratio 1.3 1.4 (0.9-2) Lipase 23 (11-82) U/L Anaplasma Smear Pending Babesia Smear Pending Babesia microti DNA PCR Pending Lyme Disease Screen Pending Hepatitis A IgM Ab Pending Hep Bs Antigen Negative (Negative) Hep B Core IgM Ab Pending Hepatitis C Antibody Negative (Negative) Diagnostic Findings Abdomen/Pelvis CT 12/05/23 01:37 Exam(s): CT ABDOMEN + PELVIS Without Contrast EXAM: CT Abdomen and Pelvis Without Intravenous Contrast CLINICAL HISTORY: Reason for exam: abnormal LFT's. Postop R KATIE infection. TECHNIQUE: Axial computed tomography images of the abdomen and pelvis without intravenous contrast. CTDI is 23.64 mGy and DLP is 1413.28 mGy-cm. Automated exposure control was utilized for the study. A dose lowering technique was utilized adhering to the principles of ALARA. COMPARISON: None. FINDINGS: Lung bases: Clear. Liver: Minimal granuloma. Gallbladder and bile ducts: Normal gallbladder. No ductal dilation. Pancreas: No ductal dilation. Spleen: Scattered granulomata. Adrenals: Unremarkable. Kidneys and ureters: No renal stone or hydronephrosis. Stomach and bowel: No obstruction. Moderate fecal loading of the colon. No diverticulosis or diverticulitis. Appendix: Normal. Intraperitoneal space: No free air or fluid. Bones/joints: No acute fracture. Soft tissues: Hypodense collections superficial to the greater trochanter right femur, see separately dictated CT right hip report. Metal artifact from right hip prosthesis limits evaluation. Vasculature: No aortic aneurysm. Lymph nodes: No enlarged lymph nodes. Bladder: Equivocal wall thickening, cannot rule out cystitis. Limited evaluation due to metal artifact right hip prosthesis. Reproductive: Unremarkable as visualized. IMPRESSION: 1. Equivocal cystitis, correlate clinically. 2. Fluid collection in the soft tissues adjacent to the right hip, see separately dictated report. Electronically signed by: Ev Garcia M.D. 12/05/23 04:[address] 12/05/23 01:39 Exam(s): CT RIGHT HIP Without Contrast EXAM: CT Right Lower Extremity Without Intravenous Contrast, Hip CLINICAL HISTORY: Reason for exam: postop R KATIE infection. TECHNIQUE: Axial computed tomography images of the right hip without intravenous contrast. CTDI is 33 mGy and DLP is 1473.6 mGy-cm. Automated exposure control was utilized for the study. A dose lowering technique was utilized adhering to the principles of ALARA. Metal artifact and noncontrast technique limits evaluation. COMPARISON: No relevant prior studies available. FINDINGS: Bones/joints: Hip prosthesis with metal artifact limiting evaluation. No definite prosthetic loosening or acute bony abnormality.. No acute fracture. No dislocation. Soft tissues: Ovoid hypodense fluid collection subcutaneous fat extending to the greater trochanter femur measuring 10 x 3.8 x 2 cm, nonspecific, possible seroma, hematoma and/or abscess. IMPRESSION: 1. Suspect soft tissue abscess superficial to the greater trochanter femur. 2. Right hip prosthesis with metal artifact limiting detail. Electronically signed by: Ev Garcia M.D. 12/05/23 04:06 AM PG Care Time/CCT Total # of Minutes Spent Total Time Spent with Patient: Total time spent is greater than 50% in coordination of care (as documented) at patient's floor/unit and/or counseling patient: Coding Level of Care Code 81445 SUB INP/OBS CARE 3/50MIN Diagnoses Infected prosthesis of right hip T84.51XA Septic hip M00.9 Abnormal LFTs R79.89 Sepsis as sequela of procedure T81.44XS Inflammatory arthropathy M19.90 Asthma J45.909 Migraine with aura and without status migrainosus, not intractable G43.109
[2023-12-05 07:40] LABS: Albumin Globulin Ratio 1.3 (0.9-2); Albumin Level 3.5 gm/dl (3.4-5.0); BUN Creatinine Ratio 14.4 (10-20); Bilirubin,Total 0.7 mg/dl (0.2-1.0); Calcium 8.4 mg/dl (8.6-10.3); Creatinine Clr Calc Pharmacy 101.3 ml/min; Est GFR (African American) 102.9 ml/min; Est GFR (Non-African American) 88.8 ml/min; Globulin 2.7 gm/dl (2.5-4.0); Total Protein 6.2 gm/dl (6.0-8.3)
[2023-12-05] MEDS: PIPERACILLIN/TAZOBACTAM 4.5 GM in DEXTROSE 5% MINI-B 100 ML IV SCH (07:57)
[2023-12-05] MEDS: ACETAMINOPHEN 1,000 MG/100 ML VIAL IV STA (08:18)
[2023-12-05 08:27] LABS: C Reactive Protein 1.87 mg/dl (0-0.5)
[2023-12-05] MEDS: ONDANSETRON INJ 2 MG/ML 2 ML VIAL IV PRN (08:35)
[2023-12-05] MEDS: VANCOMYCIN HCL 1,250 MG in SODIUM CHLORIDE 0.9% 250 ML IV SCH (09:08)
[2023-12-05] MEDS ORDERED: MoRPHine SULFATE 2 MG/ML CARP IV PRN (09:22)
--- NOTE | 2023-12-05 10:49 | Orthopedic Consultation ---
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 From the orthopedic standpoint I do not think his hip is infected at all. I will even think he is got a superficial infection. He has been admitted for sepsis and is not septic. The etiology of his elevated liver enzymes likely needs to be evaluated. Could be related to his antibiotic treatment versus alcohol use or other. Plan: From the orthopedic standpoint I recommend he continue teds and SCDs while in the hospital and aspirin twice a day. S4s antibiotics I think it is reasonable to keep him on from a precautionary standpoint. I do not know that he is got any significant infection based on his exam and his fairly minimal elevated sed rate and CRP 3 weeks out from major surgery. I do not think he needs to be in the hospital from the orthopedic standpoint. I do think maybe his liver enzymes need to be further evaluated and followed for 24 to 48 hours I will leave that up to the medicine service. He can weight-bear as tolerated. Does need to obey hip precautions. Any questions can be directly [phone]. (2) Abnormal transaminases: History of Present Illness Reason for Consultation: . Concern for right hip infection 3 weeks out from a total hip replacement. Requesting Physician: . Attending Physician: Hernandez Wheeler MD . Patient is a 53-year-old gentleman with a longstanding incapacitating hip pain secondary vast necrosis. My suspicion is that this is somewhat alcohol related. He underwent a right total hip replacement 3 weeks ago uncomplicated. He is recovered pretty nicely but came in last week with some concerns of infection. His wound was pretty benign and there was no significant signs of that. We did put him on some antibiotics. His stefan were removed just several days ago. He presented last night to the ER with some redness. He has been admitted by the the medicine service. He did say he is got a fever in the past but not febrile in the hospital since being in the ER. Fairly minimal pain. He is got a little incisional pain that is hip. There is been no drainage. His left hip actually hurts more than the right. Once again he reports a fever at home but afebrile here. Interestingly, his liver function tests are markedly elevated. With his history of AVN my suspicion is he is got a pretty significant alcohol use. Allergies Allergy/AdvReac Type Severity Reaction Status Date / Time codeine Allergy Mild angry and Verified 12/04/23 10:30 sick to stomach doxepin AdvReac Severe irritation Verified 12/04/23 10:30 and anger Home Medications Medication Instructions Recorded Confirmed Type rizatriptan 10 mg tablet 10 mg PO .COMPLEX PRN migraine 06/17/23 12/04/23 Rx headache #9 tabs fremanezumab-vfrm 225 mg/1.5 mL 675 mg (4.5 mL) subcut Q3MO #4.5 mL 09/18/23 12/04/23 Rx subcutaneous syringe (Ajovy Syringe) gabapentin 600 mg tablet 600 mg PO TID #270 tabs 09/18/23 12/04/23 Rx fluticasone propionate 50 1 spray intranasal QAM #48 grams 10/22/23 12/04/23 Rx mcg/actuation nasal spray,suspension folic acid 1 mg tablet 1 mg PO HS #90 tabs 10/30/23 12/04/23 Rx rosuvastatin 20 mg tablet 20 mg PO HS #90 tabs 10/30/23 12/04/23 Rx omeprazole 40 mg capsule,delayed 40 mg PO BID #60 caps 11/05/23 12/04/23 Rx release 3-in-1 Commode #1 ea 11/10/23 12/04/23 Rx Wheeled Walker #1 ea 11/10/23 12/04/23 Rx acetaminophen 500 mg tablet 1,000 mg (2 x 500 mg) PO TID pain 11/11/23 12/04/23 Rx (Tylenol Extra Strength) 30 days #180 tabs aspirin 81 mg tablet,delayed 81 mg PO BID 45 days #90 tabs 11/11/23 12/04/23 Rx release (Sally Low Dose Aspirin) sennosides 8.6 mg tablet (Senokot) 8.6 mg PO BID prevent constipation 11/11/23 12/04/23 Rx 14 days #28 tabs tramadol 50 mg tablet 50 - 100 mg (1 - 2 x 50 mg) PO Q6 11/19/23 12/04/23 Rx PRN pain #40 tabs Bifidobacterium infantis 4 mg 4 mg PO BID #60 caps 12/04/23 12/04/23 Rx capsule (Align) cephalexin 500 mg capsule 500 mg PO Q6 #16 caps 12/04/23 12/04/23 Rx ferrous sulfate 325 mg (65 mg 325 mg PO TID #90 tabs 12/04/23 12/04/23 Rx iron) tablet mecobalamin (vitamin B12) 1,000 1,000 mcg PO DAILY #60 ea 12/04/23 12/04/23 Rx mcg lozenges ondansetron 4 mg disintegrating 4 mg PO Q8 PRN nausea #20 tabs 12/04/23 12/04/23 Rx tablet sulfamethoxazole 400 1 tab PO BID 4 days #8 tabs 12/04/23 12/04/23 Rx mg-trimethoprim 80 mg tablet (Bactrim) Past Med/Surg History Problem List Abnormal transaminases (Acute) Wound cellulitis after surgery (Acute) Asthma Mild aortic stenosis Sepsis as sequela of procedure Abnormal LFTs Cellulitis of right leg Infected prosthesis of right hip (Acute) Septic hip (Acute) Status post right hip replacement Right knee DJD Witnessed apneic spells Lumbar radiculopathy Urinary leakage Myalgia Allergic rhinitis (Acute) Carpal tunnel syndrome (Acute) Foot drop (Acute) Inflammatory arthropathy (Acute) Lumbar disc disease (Acute) Lumbosacral radiculopathy at L5 (Acute) Muscle cramps (Acute) Osteopenia (Acute) Bilateral hip joint arthritis Migraine with aura and without status migrainosus, not intractable Vitamin D deficiency (Chronic) Medical History Anemia Sleep-disordered breathing pt states did not pursue advised sleep study in past Arm weakness chronic, bilat-denies change or worsening; follows with [facility] Dysphagia chronic, denies choking, denies change or worsening Lumbar stenosis pt denies change in chronic back pain; reports chronic intermittent urinary incontinence without change or worsening BPH associated with nocturia Benign essential hypertension controlled, stable per pt Cervical disc disorder with radiculopathy chronic, patient denies change or worsening Chronic fatigue denies change or worsening Leukoplakia oral mucosa per patient noted in 2019 Memory loss or impairment chronic, denies impairment in daily activities Osteoarthritis Blood dyscrasia "reason for needing daily folic acid" ? 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 Family History Brother Diabetes Cardiovascular disease Hypercholesteremia Hypertension Mother Diabetes Cardiovascular disease Hypercholesteremia Multiple sclerosis Hypertension Other No family history of adverse response to anesthesia Social History Smoking Status: Never smoker Tobacco Type: Smokeless Tobacco (Dip or Chew) Second Hand Exposure: No; Do You Dip or Chew Tobacco: Yes (advised npo); Hx Alcohol Use: No Hx Substance Use: No Preferred Language: Thai Communication Ability: Effective Chief Solution Architect Required: No Beliefs That Will Affect Care: None marital status: Current Living Situation: Family Current Living Situation Comment: and 2 sons Feels Safe at Home: Yes Safety Concerns: Feels Safe At This Time Childhood Exposure to Second-Hand Smoke: No Assistive Devices: Crutches and Glasses Review of Systems All systems reviewed & are unremarkable except as noted in HPI & below. Physical Exam . Physical exam shows a pleasant middle-age male. He is lying in bed looks completely comfortable. Examination the right hip reveals the skin Steri-Strips to be in place. Very minimal hip swelling. There is no palpable fluctuance. Some mild tenderness to palpation. Fairly minimal redness. Minimal pain with hip motion. His thigh is not swollen at all. His leg lengths are equal. He is neurologically intact. Results & Data Results & Data Laboratory Results . His white cell counts and 3.88 which is low. Hemoglobin is 10.5. His sed rate Sev fairly mildly elevated at 32 and C-reactive protein also mildly e levated at 1.87. Diagnostic Findings . PG Care Time/CCT Total # of Minutes Spent Total Time Spent with Patient: Total time spent is greater than 50% in coordination of care (as documented) at patient's floor/unit and/or counseling patient: Coding Level of Care Code 42444 IN/OBS CONSULT LVL 4,60M Diagnoses Status post right hip replacement Z96.641 Abnormal transaminases R74.8
--- NOTE | 2023-12-05 11:05 | Pharmacy Report ---
Pharmacy PK ABX Note - Date of Service December 05, 2023 - Assessment and Plan Assessment * 53 year old M receiving Zosyn and vancomycin for treatment of sepsis due to infection of right total hip arthroplasty. * Per provider documentation: Initial surgery on 11/07/2023. Emergency department visit on 11/27/2023, and received vancomycin 1750 mg IV, assessed by orthopedics and discharged to office follow-up. Blood cultures from 11/26 ER visit NGTD x5days. Initial outpatient regimen cephalexin on 11/24, addition of Bactrim on 11/26 Plan Vancomycin * Loading dose: 2250 mg IV x 1 * Maintenance dose: 1250 mg IV every 12 hours * Regimen is predicted to achieve target AUC/POOJA of 400-600 mg/L.hr * Random level ordered for: 6/30 AM Pharmacy will continue to follow and will adjust dose/frequency as necessary. Thank you. Pharmacy has transitioned to AUC monitoring for vancomycin. AUC/POOJA is the preferred PK/PD target and is associated with decreased risk of nephrotoxicity compared to traditional trough targets.
[2023-12-05 14:12] LABS: Appearance Urine Clear (Clear); Bilirubin Urine Negative (Negative); Blood Urine Negative (Negative); Color Urine Yellow; Glucose Urine UA Negative (Negative); Ketones Urine Negative (Negative); Leukocyte Esterase Urine Negative (Negative); Nitrite Urine Negative (Negative); Protein Urine Negative (Negative); Specific Gravity Urine 1.021 (1.000-1.030); Urobilinogen Urine Negative (Negative)
[2023-12-05] MEDS: GABAPENTIN 600 MG TAB PO SCH (15:38)
--- NOTE | 2023-12-05 17:49 | Electrocardiogram Report ---
Test Reason : Blood Pressure : / mmHG Vent. Rate : 078 BPM Atrial Rate : 078 BPM P-R Int : 152 ms QRS Dur : 102 ms QT Int : 362 ms P-R-T Axes : 061 005 029 degrees QTc Int : 412 ms Normal sinus rhythm Incomplete right bundle branch block Borderline ECG When compared with ECG of 27-NOV-2023 16:08, No significant change was found Confirmed by Syed Shirley ([id number]) on 12/05/2023 5:49:01 PM Referred By: REFERRED SELF Confirmed By:Syed Shirley
[2023-12-05] MEDS: traMADol HCL 50 MG TABLET PO PRN (18:13)
[2023-12-05] MEDS: PANTOprazole 40 MG TAB PO SCH (21:01)
[2023-12-06 06:30] LABS: Basophils # (auto) 0.05 K/uL (0.00-0.20); Eosinophils # (auto) 0.18 K/uL (0.00-0.50); Eosinophils % (auto) 3.7 %; Hemoglobin 10.8 g/dl (14.0-18.0); Immature Granulocytes # (auto) 0.03 K/uL (0.01-0.20); Immature Granulocytes % (auto) 0.6 %; Lymphocytes # (auto) 1.02 K/uL (1.20-3.40); Lymphocytes % (auto) 20.9 %; Mean Corpuscular Hemoglobin 29.6 pg (25.0-34.0); Mean Corpuscular Hgb Conc 32.7 g/dL (32.0-36.0); Mean Corpuscular Volume 90.4 fL (80.0-100.0); Mean Platelet Volume 9.1 fL (9.4-12.4); Monocytes # (auto) 0.62 K/uL (0.11-0.59); Monocytes % (auto) 12.7 %; Neutrophils # (auto) 2.97 K/uL (1.40-6.50); Neutrophils % (auto) 61.1 %; Platelet Count 300 K/uL (130-400); RDW Coefficient of Variation 13.2 % (11.5-14.5); RDW Standard Deviation 43.5 fL (36.4-46.3); Red Blood Count 3.65 M/uL (4.70-6.10); White Blood Count 4.87 K/ul (4.8-10.8)
[2023-12-06 06:42] LABS: Hepatitis A Antibody IgM NON-REACTIVE (NON-REACTIVE); Hepatitis B Core Antibody IgM NON-REACTIVE (NON-REACTIVE)
[2023-12-06 06:47] LABS: Albumin Globulin Ratio 1.3 (0.9-2); Albumin Level 3.6 gm/dl (3.4-5.0); BUN Creatinine Ratio 11.8 (10-20); Calcium 8.8 mg/dl (8.6-10.3); Creatinine Clr Calc Pharmacy 96.4 ml/min; Est GFR (African American) 96.8 ml/min; Est GFR (Non-African American) 83.5 ml/min; Globulin 2.8 gm/dl (2.5-4.0); Magnesium 1.9 mg/dl (1.7-2.4); Potassium 3.7 mmol/L (3.5-5.1); Total Protein 6.4 gm/dl (6.0-8.3)
--- NOTE | 2023-12-06 08:24 | Hospitalist Progress Note ---
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 Blood cultures from 11/26 ER visit NGTD x5days Initial outpatient regimen cephalexin on 11/24, addition of Bactrim on 11/26-Stop both cephalexin and Bactrim. CT hip noting ovoid hypodense fluid collection subcutaneous fat extending to the greater trochanter femur measuring 10 x 3.8 x 2 cm, nonspecific, possible seroma, hematoma and/or abscess. Impression w/ suspect soft tissue abscess superficial to greater trochenter femur Ortho consulted Wound cx if any active drainage (hasn't had any) Remains on Zosyn, Vanco IV No plans for intervention w/ orthopedics but monitoring blood cx another 24hr on IV abx and PA from ortho to see in AM and decide on continued PO abx at dc. ?benefit from topical mupiricion as well. Monitor for any fevers/drainage or leukocytosis but suspect going to dc on course PO abx (would use doxy for staph coverage over bactrim given ?rxn w/ fever to such after several days. Eosinophils not elevated and no rash on exam but to monitor) Pain control w/ tramadol, home gabapentin resumed. Would send repeat rx for tramadol and AVOID EXCESSIVE TYLENOL. LFTs trending down on repeat and had been taking 1gm APAP q4h when ran out tramadol last week (2) Septic hip: Plan: see above, concerns for such. However does not appear to be to the hip. Dental abscess history- Reportedly treated in September, and reportedly treated at that time. Had a temporary tooth placed, which is still present. History of metal insert/post still present in upper front teeth Heart murmur- There was a question of a previous diagnosis of mild aortic stenosis. However, no hemodynamically significant valvular stenosis was noted on echocardiogram on 10/30/2023 Mild tricuspid regurgitation EF 55-60% If concern regarding dental process seeding heart valve and then seeding total hip arthroplasty, or some other combination, repeat echo could be performed -reassuring that blood cultures from ER on 11/26 prior to initiation of any antibiotics have been NGTD x 5 days however do not patient got 3 days Keflex after home health nursing visit w/ concerns. monitor for issues (3) Abnormal LFTs: Plan: Abnormal LFTs- AST 124, ALT 360, ALP 533 INR 1.0 SUSPECT COMBINATION OF BACTRIM USE IN SETTING OF EXCESSIVE TYLENOL USE FOR PAIN HE RAN OUT OF HIS TRAMADOL WHICH WAS EFFECTIVE FOR PAIN -- DID GET 1X DOSE IV TYLENOL PER PATIENT REQUEST PRIOR TO FURTHER DISCUSSION ON HOME TYLENOL USE, WILL AVOID FURTHER NO RUQ PAIN ON EXAM CTAP only noted cystitis. normal GB. No elevated eosinophil. MONITOR LFTS ON REPEAT --> IMPROVING Limit tylenol use to 2-3g/daily at sd encouraged Avoid hepatotoxins Hep panel pending Monitor in AM (4) Sepsis as sequela of procedure: (5) Inflammatory arthropathy: (6) Asthma: (7) Migraine with aura and without status migrainosus, not intractable: Plan continued inpatient stay, completing 48hr IV abx, repeat eval and decision on treatment course to be decided in AM Admission and Anticipated Discharge Date Admission Date: December 04, 2023 Supervising Physician Co-Signing Physician Notes The patient was not seen by me. The chart was reviewed. Case discussed with BERTIN Day. Agree with assessment and plan Subjective Eval this morning, erythema and tenderness improving. Remains on antibiotics, reports feeling better. Seen by orthopedics this morning and agreed would monitor another day of IV antibiotics and consider coverage w/ Doxy over bactrim at sd and can also use topical. If any repeat fevers/cultures positive will alter course but no active drainage at present time. No chest pain, shortness of breath, abdominal pain, nausea or vomiting at this time. Questions/concerns addressed. Physical Exam Physical Exam: 53yo male sitting in bed on phone, NAD, reports feeling better today head atraumatic, normocephalic, mmm resp: even/unlabored, no w/c/r, on room air CV: RRR, +systolic murmur, no pitting edema/calf tenderness GI +BS, soft/NT no tiwrai MSK/Neuro: steri-strips to RIGHT hip, +tenderness/warmth/erythema along incision IMPROVED, no active drainage, no decreased ROM at the him, NVI, pulses present Psych: aox3, cooperative with exam Results & Data Results & Data Vital Signs (Past 12 Hours) Vital Signs Temp Pulse Resp BP Pulse Ox O2 Del Method 12/06/23 07:41 37.0 C 70 16 123/70 94 Room Air Laboratory Results 12/06/23 12/05/23 12/05/23 Range/Units 05:31 13:59 06:28 WBC 4.87 (4.8-10.8) K/ul RBC 3.65 L (4.70-6.10) M/uL Hgb 10.8 L (14.0-18.0) g/dl Hct 33.0 L (42.0-52.0) % MCV 90.4 (80.0-100.0) fL MCH 29.6 (25.0-34.0) pg MCHC 32.7 (32.0-36.0) g/dL RDW Std Deviation 43.5 (36.4-46.3) fL RDW Coeff of Navid 13.2 (11.5-14.5) % Plt Count 300 (130-400) K/uL MPV 9.1 L (9.4-12.4) fL Immature Gran % (Auto) 0.6 % Neut % (Auto) 61.1 % Lymph % (Auto) 20.9 % [place] % (Auto) 12.7 % Eos % (Auto) 3.7 % Baso % (Auto) 1.0 % Neut # (Auto) 2.97 (1.40-6.50) K/uL Lymph # (Auto) 1.02 L (1.20-3.40) K/uL [place] # (Auto) 0.62 H (0.11-0.59) K/uL Eos # (Auto) 0.18 (0.00-0.50) K/uL Baso # (Auto) 0.05 (0.00-0.20) K/uL Immature Gran # (Auto) 0.03 (0.01-0.20) K/uL Sodium 138 (136-145) mmol/L Potassium 3.7 (3.5-5.1) mmol/L Chloride 103 (98-107) mmol/L Carbon Dioxide 27 (21-32) mmol/L Anion Gap 8 (3-11) BUN 12 (6-23) mg/dl Creatinine 1.02 (0.6-1.4) mg/dl Est Cr Clr Drug Dosing 96.4 ml/min Est GFR ( Amer) 96.8 ml/min Est GFR (Non-Af Amer) 83.5 ml/min BUN/Creatinine Ratio 11.8 (10-20) Glucose 96 (70-99(Fasting)) mg/dl Calcium 8.8 (8.6-10.3) mg/dl Magnesium 1.9 (1.7-2.4) mg/dl Total Bilirubin 1.0 (0.2-1.0) mg/dl AST 64 H (13-39) U/L ALT 237 H (7-52) U/L Alkaline Phosphatase 424 H (34-104) U/L Total Protein 6.4 (6.0-8.3) gm/dl Albumin 3.6 (3.4-5.0) gm/dl Globulin 2.8 (2.5-4.0) gm/dl Albumin/Globulin Ratio 1.3 (0.9-2) Urine Color Yellow Urine Appearance Clear (Clear) Urine pH 7.0 (4.5-7.5) Ur Specific [place] 1.021 (1.000-1.030) Urine Protein Negative (Negative) Urine Glucose (UA) Negative (Negative) Urine Ketones Negative (Negative) Urine Blood Negative (Negative) Urine Nitrite Negative (Negative) Urine Bilirubin Negative (Negative) Urine Urobilinogen Negative (Negative) Ur Leukocyte Esterase Negative (Negative) Random Vancomycin 11.7 (10-20) mcg/ml Hepatitis A IgM Ab NON-REACTIVE (NON-REACTIVE) Hep B Core IgM Ab NON-REACTIVE (NON-REACTIVE) PG Care Time/CCT Total # of Minutes Spent Total Time Spent with Patient: Total time spent is greater than 50% in coordination of care (as documented) at patient's floor/unit and/or counseling patient: Coding Level of Care Code 57307 SUB INP/OBS CARE 3/50MIN Diagnoses Infected prosthesis of right hip T84.51XA Septic hip M00.9 Abnormal LFTs R79.89 Sepsis as sequela of procedure T81.44XS Inflammatory arthropathy M19.90 Asthma J45.909 Migraine with aura and without status migrainosus, not intractable G43.109
--- NOTE | 2023-12-06 09:38 | Orthopedic Progress Note ---
Date of Service December 06, 2023 Assessment & Plan (1) Wound cellulitis after surgery: Plan: Hospital day 2 status post rule out infection right hip wound. Covering for Dr. Andino today with Dr. Stevens Patient was seen by Dr. Andino yesterday. Patient improving overall. Continue weightbearing as tolerated and activity as able. He continues to have some mild erythema around the midportion of his incision but it has improved. Consider 24 hours more of IV piperacillin/tazobactam. At that point in time, patient can be seen by Dalton Sam PA-C or another member of Dr. Andino's group for final decision for antibiotic choice for discharge. Admission and Anticipated Discharge Date Admission Date: December 04, 2023 Subjective Hospital day 2 patient seen today in conjunction with Dr. Basilia Barnett who was with me during the visit. Dr. Andino asked us to see his patient in rounds today. Patient is sitting up in bed awake and alert. No complaints this morning. He states that his hip is feeling much better since yesterday. Most of the pain was on the lateral aspect of the hip. He denies any groin pain this morning. States that weightbearing as tolerated is without pain. Range of motion is without pain. Physical Exam Physical Exam: Examination of his incision area shows much less erythema and a little bit of swelling he did have is coming down nicely. There is no drainage. His Steri- Strips are slowly coming off. He is less tender on palpation over the midportion of his incision than he was yesterday. Thigh is soft and nontender essentially at this time. Calves are soft nontender. Neurovascular intact. Results & Data Vital Signs (Past 12 Hours) Vital Signs Temp Pulse Resp BP Pulse Ox O2 Del Method 12/06/23 07:41 37.0 C 70 16 123/70 94 Room Air Laboratory Results 12/06/23 12/05/23 12/05/23 Range/Units 05:31 13:59 09:42 WBC 4.87 (4.8-10.8) K/ul RBC 3.65 L (4.70-6.10) M/uL Hgb 10.8 L (14.0-18.0) g/dl Hct 33.0 L (42.0-52.0) % MCV 90.4 (80.0-100.0) fL MCH 29.6 (25.0-34.0) pg MCHC 32.7 (32.0-36.0) g/dL RDW Std Deviation 43.5 (36.4-46.3) fL RDW Coeff of Navid 13.2 (11.5-14.5) % Plt Count 300 (130-400) K/uL MPV 9.1 L (9.4-12.4) fL Immature Gran % (Auto) 0.6 % Neut % (Auto) 61.1 % Lymph % (Auto) 20.9 % [place] % (Auto) 12.7 % Eos % (Auto) 3.7 % Baso % (Auto) 1.0 % Neut # (Auto) 2.97 (1.40-6.50) K/uL Lymph # (Auto) 1.02 L (1.20-3.40) K/uL [place] # (Auto) 0.62 H (0.11-0.59) K/uL Eos # (Auto) 0.18 (0.00-0.50) K/uL Baso # (Auto) 0.05 (0.00-0.20) K/uL Immature Gran # (Auto) 0.03 (0.01-0.20) K/uL Sodium 138 (136-145) mmol/L Potassium 3.7 (3.5-5.1) mmol/L Chloride 103 (98-107) mmol/L Carbon Dioxide 27 (21-32) mmol/L Anion Gap 8 (3-11) BUN 12 (6-23) mg/dl Creatinine 1.02 (0.6-1.4) mg/dl Est Cr Clr Drug Dosing 96.4 ml/min Est GFR ( Amer) 96.8 ml/min Est GFR (Non-Af Amer) 83.5 ml/min BUN/Creatinine Ratio 11.8 (10-20) Glucose 96 (70-99(Fasting)) mg/dl Calcium 8.8 (8.6-10.3) mg/dl Magnesium 1.9 (1.7-2.4) mg/dl Total Bilirubin 1.0 (0.2-1.0) mg/dl AST 64 H (13-39) U/L ALT 237 H (7-52) U/L Alkaline Phosphatase 424 H (34-104) U/L Total Protein 6.4 (6.0-8.3) gm/dl Albumin 3.6 (3.4-5.0) gm/dl Globulin 2.8 (2.5-4.0) gm/dl Albumin/Globulin Ratio 1.3 (0.9-2) Urine Color Yellow Urine Appearance Clear (Clear) Urine pH 7.0 (4.5-7.5) Ur Specific [place] 1.021 (1.000-1.030) Urine Protein Negative (Negative) Urine Glucose (UA) Negative (Negative) Urine Ketones Negative (Negative) Urine Blood Negative (Negative) Urine Nitrite Negative (Negative) Urine Bilirubin Negative (Negative) Urine Urobilinogen Negative (Negative) Ur Leukocyte Esterase Negative (Negative) Random Vancomycin 11.7 (10-20) mcg/ml Acetaminophen 7 L (10-30) ug/ml Anaplasma Smear Babesia Smear Lyme Disease Screen (Negative) Hepatitis A IgM Ab (NON-REACTIVE) Hep B Core IgM Ab (NON-REACTIVE) 12/05/23 12/05/23 Range/Units 08:40 06:28 WBC (4.8-10.8) K/ul RBC (4.70-6.10) M/uL Hgb (14.0-18.0) g/dl Hct (42.0-52.0) % MCV (80.0-100.0) fL MCH (25.0-34.0) pg MCHC (32.0-36.0) g/dL RDW Std Deviation (36.4-46.3) fL RDW Coeff of Navid (11.5-14.5) % Plt Count (130-400) K/uL MPV (9.4-12.4) fL Immature Gran % (Auto) % Neut % (Auto) % Lymph % (Auto) % [place] % (Auto) % Eos % (Auto) % Baso % (Auto) % Neut # (Auto) (1.40-6.50) K/uL Lymph # (Auto) (1.20-3.40) K/uL [place] # (Auto) (0.11-0.59) K/uL Eos # (Auto) (0.00-0.50) K/uL Baso # (Auto) (0.00-0.20) K/uL Immature Gran # (Auto) (0.01-0.20) K/uL Sodium (136-145) mmol/L Potassium (3.5-5.1) mmol/L Chloride (98-107) mmol/L Carbon Dioxide (21-32) mmol/L Anion Gap (3-11) BUN (6-23) mg/dl Creatinine (0.6-1.4) mg/dl Est Cr Clr Drug Dosing ml/min Est GFR ( Amer) ml/min Est GFR (Non-Af Amer) ml/min BUN/Creatinine Ratio (10-20) Glucose (70-99(Fasting)) mg/dl Calcium (8.6-10.3) mg/dl Magnesium (1.7-2.4) mg/dl Total Bilirubin (0.2-1.0) mg/dl AST (13-39) U/L ALT (7-52) U/L Alkaline Phosphatase (34-104) U/L Total Protein (6.0-8.3) gm/dl Albumin (3.4-5.0) gm/dl Globulin (2.5-4.0) gm/dl Albumin/Globulin Ratio (0.9-2) Urine Color Urine Appearance (Clear) Urine pH (4.5-7.5) Ur Specific [place] (1.000-1.030) Urine Protein (Negative) Urine Glucose (UA) (Negative) Urine Ketones (Negative) Urine Blood (Negative) Urine Nitrite (Negative) Urine Bilirubin (Negative) Urine Urobilinogen (Negative) Ur Leukocyte Esterase (Negative) Random Vancomycin (10-20) mcg/ml Acetaminophen (10-30) ug/ml Anaplasma Smear See Comment Babesia Smear See Comment Lyme Disease Screen Negative (Negative) Hepatitis A IgM Ab NON-REACTIVE (NON-REACTIVE) Hep B Core IgM Ab NON-REACTIVE (NON-REACTIVE)
--- NOTE | 2023-12-06 09:38 | Pharmacy Report ---
Pharmacy PK ABX Note - Date of Service December 06, 2023 - Assessment and Plan Assessment * 53 year old M receiving Zosyn and vancomycin for treatment of sepsis due to infection of right total hip arthroplasty. * Per provider documentation: Initial surgery on 11/07/2023. Emergency department visit on 11/27/2023, and received vancomycin 1750 mg IV, assessed by orthopedics and discharged to office follow-up. Blood cultures from 11/26 ER visit NGTD x5days. Initial outpatient regimen cephalexin on 11/24, addition of Bactrim on 11/26 * SCr stable Plan Vancomycin * Target AUC/POOJA of 400-600 mg/L.hr * Random level of 11.7 mcg/mL this AM associated with a therapeutic AUC of 452 mg/L.hr * Continue vancomycin 1250 mg IV every 12 hours * Random level ordered for: 7/2 w AM labs Pharmacy will continue to follow and will adjust dose/frequency as necessary. Thank you. Pharmacy has transitioned to AUC monitoring for vancomycin. AUC/POOJA is the preferred PK/PD target and is associated with decreased risk of nephrotoxicity compared to traditional trough targets.
[2023-12-06] MEDS: DOCUSATE SODIUM 100 MG CAP PO ONE (16:02)
[2023-12-06] MEDS: SENNA 8.6 MG TAB PO SCH (16:31)
[2023-12-06] MEDS: DOCUSATE SODIUM 100 MG CAP PO SCH (19:37)
[2023-12-07 07:36] LABS: Basophils # (auto) 0.06 K/uL (0.00-0.20); Basophils % (auto) 1.1 %; Eosinophils # (auto) 0.22 K/uL (0.00-0.50); Eosinophils % (auto) 3.9 %; Hematocrit (blood only) 35.3 % (42.0-52.0); Hemoglobin 11.5 g/dl (14.0-18.0); Immature Granulocytes # (auto) 0.01 K/uL (0.01-0.20); Immature Granulocytes % (auto) 0.2 %; Lymphocytes # (auto) 1.23 K/uL (1.20-3.40); Lymphocytes % (auto) 21.6 %; Mean Corpuscular Hemoglobin 29.6 pg (25.0-34.0); Mean Corpuscular Hgb Conc 32.6 g/dL (32.0-36.0); Mean Corpuscular Volume 90.7 fL (80.0-100.0); Mean Platelet Volume 8.8 fL (9.4-12.4); Monocytes % (auto) 12.3 %; Neutrophils # (auto) 3.48 K/uL (1.40-6.50); Neutrophils % (auto) 60.9 %; Platelet Count 338 K/uL (130-400); RDW Standard Deviation 42.9 fL (36.4-46.3); Red Blood Count 3.89 M/uL (4.70-6.10)
--- NOTE | 2023-12-07 08:56 | Hospitalist Progress Note ---
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 Blood cultures from 11/26 ER visit NGTD x5days Initial outpatient regimen cephalexin on 11/24, addition of Bactrim on 11/26- Stopped both cephalexin and Bactrim. CT hip noting ovoid hypodense fluid collection subcutaneous fat extending to the greater trochanter femur measuring 10 x 3.8 x 2 cm, nonspecific, possible seroma, hematoma and/or abscess. Impression w/ suspect soft tissue abscess superficial to greater trochenter femur Ortho consulted Wound cx ordered but hasn't had any drainage Given Zosyn/Vanco IV x 48hrs, blood cultures NGTD and per ortho eval this morning plan for Doxy/Keflex at dc to complete course. Given elevation in inflammatory markers and slightly more red distal to incision, discussion was had to switch to the Keflex/Doxy for today inpatient and monitor overnight and if improvement can dc in AM. AVOID TYLENOL, monitor LFTs in AM (AST/ALT improved, ALP still elevated). Should have new rx for tram adol (2) Septic hip: Plan: see above, concerns for such. However does not appear to be to the hip. Dental abscess history- Reportedly treated in September, and reportedly treated at that time. Had a temporary tooth placed, which is still present. History of metal insert/post still present in upper front teeth Heart murmur- There was a question of a previous diagnosis of mild aortic stenosis. However, no hemodynamically significant valvular stenosis was noted on echocardiogram on 10/30/2023 Mild tricuspid regurgitation EF 55-60% If concern regarding dental process seeding heart valve and then seeding total hip arthroplasty, or some other combination, repeat echo could be performed -reassuring that blood cultures from ER on 11/26 prior to initiation of any antibiotics have been NGTD x 5 days however do not patient got 3 days Keflex after home health nursing visit w/ concerns. monitor for issues (3) Abnormal LFTs: Plan: Abnormal LFTs- AST 124, ALT 360, ALP 533 INR 1.0 SUSPECT COMBINATION OF BACTRIM USE IN SETTING OF EXCESSIVE TYLENOL USE FOR PAIN HE RAN OUT OF HIS TRAMADOL WHICH WAS EFFECTIVE FOR PAIN -- DID GET 1X DOSE IV TYLENOL PER PATIENT REQUEST PRIOR TO FURTHER DISCUSSION ON HOME TYLENOL USE day following admission --> AVOIDED FURTHER NO RUQ PAIN ON EXAM CTAP only noted cystitis. normal GB. No elevated eosinophil. MONITOR LFTS ON REPEAT --> IMPROVING w/ exception of ALP AVOID tylenol for now, repeat education on limiting to 2-3gm/daily Avoid hepatoxins Hepatitis panel ordered F/u LFTs in AM (4) Sepsis as sequela of procedure: (5) Inflammatory arthropathy: (6) Asthma: (7) Migraine with aura and without status migrainosus, not intractable: Plan continued inpatient stay, swtiching to PO abx and given increased pain will monitor overnight w/ switch to PO to ensure stable and plan for dc in AM DVT proph: ASA 81mg PO BID resumed as not ordered on admission. Venous doppler ordered for completeness given slight edema which was NEGATIVE for DVT Admission and Anticipated Discharge Date Admission Date: December 04, 2023 Supervising Physician Co-Signing Physician Notes The patient was not seen by me. The chart was reviewed. Case discussed with BERTIN Day. Agree with assessment and plan Subjective Eval this afternoon, did have some increased pain to lateral hip. Initially planned for dc but also worried and discussed meeting in middle ground and putting on the planned PO abx for today and monitoring overnight and if stable/improved in AM plan to dc to continue course. Questions/concerns addressed at this time. Physical Exam Physical Exam: 53yo male sitting in bed NAD head atraumatic, normocephalic, mmm resp: even/unlabored, no w/c/r, on room air CV: RRR, +systolic murmur, no pitting edema/calf tenderness GI +BS, soft/NT no tiwari MSK/Neuro: steri-strips to R hip removed by orthopedics this morning, slightly more erythema to distal aspect/slight edema/warmth but no overt tenderness. ROM intact, no calf tenderness, pulses present Psych: aox3, cooperative with exam Results & Data Results & Data Vital Signs (Past 12 Hours) Vital Signs Temp Pulse Resp BP Pulse Ox O2 Del Method 12/07/23 06:52 36.7 C 71 18 128/76 96 Room Air 12/06/23 22:57 Room Air 12/06/23 22:22 36.9 C 72 16 121/74 97 Room Air Laboratory Results 12/07/23 Range/Units 07:00 WBC 5.70 (4.8-10.8) K/ul RBC 3.89 L (4.70-6.10) M/uL Hgb 11.5 L (14.0-18.0) g/dl Hct 35.3 L (42.0-52.0) % MCV 90.7 (80.0-100.0) fL MCH 29.6 (25.0-34.0) pg MCHC 32.6 (32.0-36.0) g/dL RDW Std Deviation 42.9 (36.4-46.3) fL RDW Coeff of Navid 13.0 (11.5-14.5) % Plt Count 338 (130-400) K/uL MPV 8.8 L (9.4-12.4) fL Immature Gran % (Auto) 0.2 % Neut % (Auto) 60.9 % Lymph % (Auto) 21.6 % [place] % (Auto) 12.3 % Eos % (Auto) 3.9 % Baso % (Auto) 1.1 % Neut # (Auto) 3.48 (1.40-6.50) K/uL Lymph # (Auto) 1.23 (1.20-3.40) K/uL [place] # (Auto) 0.70 H (0.11-0.59) K/uL Eos # (Auto) 0.22 (0.00-0.50) K/uL Baso # (Auto) 0.06 (0.00-0.20) K/uL Immature Gran # (Auto) 0.01 (0.01-0.20) K/uL ESR 45 H (0-20) mm/hr Sodium 138 (136-145) mmol/L Potassium 4.0 (3.5-5.1) mmol/L Chloride 101 (98-107) mmol/L Carbon Dioxide 31 (21-32) mmol/L Anion Gap 6 (3-11) BUN 11 (6-23) mg/dl Creatinine 0.97 (0.6-1.4) mg/dl Est Cr Clr Drug Dosing 101.3 ml/min Est GFR ( Amer) 102.9 ml/min Est GFR (Non-Af Amer) 88.8 ml/min BUN/Creatinine Ratio 11.3 (10-20) Glucose 103 H (70-99(Fasting)) mg/dl Calcium 8.7 (8.6-10.3) mg/dl Magnesium 2.0 (1.7-2.4) mg/dl Total Bilirubin 0.9 (0.2-1.0) mg/dl AST 57 H (13-39) U/L ALT 193 H (7-52) U/L Alkaline Phosphatase 528 H (34-104) U/L C-Reactive Protein 2.44 H (0-0.5) mg/dl Total Protein 6.8 (6.0-8.3) gm/dl Albumin 3.8 (3.4-5.0) gm/dl Globulin 3.0 (2.5-4.0) gm/dl Albumin/Globulin Ratio 1.3 (0.9-2) Diagnostic Findings Venous Doppler Study 12/07/23 08:54 RIGHT LOWER EXTREMITY VENOUS DOPPLER HISTORY: Right hip pain. s/p hip, LE edema, aspirin had been on hold COMPARISON STUDY: None. FINDINGS: There is normal compressibility, flow, and augmentation within the right lower extremity deep venous system. IMPRESSION: No DVT within the right lower extremity ACT 112: Negative or not required by law. Electronically signed by: Sarthak Mujica M.D. 12/07/2023 9:50 AM PG Care Time/CCT Total # of Minutes Spent Total Time Spent with Patient: Total time spent is greater than 50% in coordination of care (as documented) at patient's floor/unit and/or counseling patient: Coding Level of Care Code 03109 SUB INP/OBS CARE 3/50MIN Diagnoses Infected prosthesis of right hip T84.51XA Septic hip M00.9 Abnormal LFTs R79.89 Sepsis as sequela of procedure T81.44XS Inflammatory arthropathy M19.90 Asthma J45.909 Migraine with aura and without status migrainosus, not intractable G43.109
--- NOTE | 2023-12-07 09:51 | Ultrasound Report ---
RIGHT LOWER EXTREMITY VENOUS DOPPLER HISTORY: Right hip pain. s/p hip, LE edema, aspirin had been on hold COMPARISON STUDY: None. FINDINGS: There is normal compressibility, flow, and augmentation within the right lower extremity de ep venous system. IMPRESSION: No DVT within the right lower extremity ACT 112: Negative or not required by law. Electronically signed by: Sarthak Mujica M.D. 12/07/2023 9:50 AM
[2023-12-07] MEDS: ASPIRIN 81 MG ECTAB PO SCH (10:00)
[2023-12-07 10:21] LABS: Albumin Level 3.8 gm/dl (3.4-5.0); Bilirubin,Total 0.9 mg/dl (0.2-1.0); Calcium 8.7 mg/dl (8.6-10.3)
[2023-12-07 10:27] LABS: Albumin Globulin Ratio 1.3 (0.9-2); BUN Creatinine Ratio 11.3 (10-20); C Reactive Protein 2.44 mg/dl (0-0.5); Creatinine Clr Calc Pharmacy 101.3 ml/min; Est GFR (African American) 102.9 ml/min; Est GFR (Non-African American) 88.8 ml/min; Total Protein 6.8 gm/dl (6.0-8.3)
--- NOTE | 2023-12-07 12:33 | Orthopedic Progress Note ---
Date of Service December 07, 2023 Assessment & Plan (1) Status post right hip replacement: His hip looks fairly benign today, for 3 weeks s/p surgery. His ESR and CRP slightly more elevated. Discussed with Dr. Andino and theresa with discharge from orthopedic standpoint. Recommend oral antibiotics (keflex/doxycycline) and follow up next week with Dr. Andino. He should call to make the appointment ([phone]) Continue wbat/hip precautions. Subjective . 53 year old patient approx 3 weeks s/p right torsten, admitted for some cellulitis, elevated LFT's, possible sepsis. His blood cultures remain negative still. He reports some slight increase in right lateral hip pain today (also notes that he had no hip pain yesterday), but overall his hip feels better. Has been ambulating. Review of Systems All systems reviewed & are unremarkable except as noted in HPI & below. Physical Exam .alert and oriented. NAD. VSS and afebrile this morning. Right hip: remaining steri strips removed. No open areas and no drainage. Slight erythema around the incision and some mild subcutaneous swelling. Able to dorsiflex/plantarflex. NVI ESR/crp today slight elevated from yesterday: 45 and 2.44 Results & Data Results & Data Laboratory Results . Diagnostic Findings . PG Care Time/CCT Total # of Minutes Spent Total Time Spent with Patient: Total time spent is greater than 50% in coordination of care (as documented) at patient's floor/unit and/or counseling patient: Coding Level of Care Code 34851 Post Operative Follow-Up Diagnoses Status post right hip replacement Z96.641
--- NOTE | 2023-12-07 14:16 | Infectious Disease Consult ---
Date of Consultation December 07, 2023 Assessment & Plan (1) Abnormal transaminases: (2) Wound cellulitis after surgery: Plan This is a 53 y male with pmh of , inflammatory arthropathy, L5 lumbosacral radiculopathy, bilateral hip joint arthritis with avascular necrosis s/p R total hip arthroplasty on 11/13/2023, He was discharge on 11/13. Approximately 2 weeks post procedure, he noted increased erythema, warmth and swelling at Right hip incision site associated with greenish yellow drainage. He was evaluated in the ED on 11/26 by orthopedics who thought that je may be having a metal reaction at staple sites. He received a dose of IV vancomycin and was discharged on Keflex/Bactrim. He took Tylenol to control pain. On antibiotics, the erythema, warmth and swelling progressed. He had a fever of T 100.4 with chills. His prompted him to return to the Ed for further evaluation. In the ED, he is afebrile and HDS. Labs with a WBc 4.25, Bun 12, cr 1.11 ast 124,alt 369, alk P 53. CTAP shows a hypodense fluid collections superficial to the greater trochanter right femur. CT hip shows a soft tissue abscess superficial to the greater trochanter. RLE doppler negative for DVT. He is currently on IV vancomycin and Zosyn. Id consulted for R hip infection. #R TKA 11/12 #R TKA site SSTI/cellulitis with soft tissue collection; rule out deep space infection ,involvement of hardware #Transaminitis #leukopenia - resolved. Area of R hip incision is still red, warm, tender and indurated. There is no culture data from the collection to help direct antibiotic therapy He was is IV vanco/zosyn and has received antibiotics for at least 1 week prior to admission, so growth may be decreased He may need washout or area vs aspiration of collection with culture. If per ortho there is no involvement of hardware, can likely treat with 2 weeks of oral antibiotics targeted to organism growing from collection He had leukopenia on admission, but this resolved. Unclear cause of transaminitis ( had received keflex and high doses of tylenol prior to admission ) Recommendations Would d/w ortho regarding obtaining cultures from the collection to help direct antibiotics: send for anaerobic, aerobic and fungal cultures Follow up tick borne testing Check acute hepatitis panel Continue IV vancomycin per pharmacy protocol for now pending Culture data. IV vanco should cover common skin britney staph, strep and MRSA Discontinued broad Gram negative coverage with zosyn . Will adjust based antibiotics based on culture data Agree with doxycycline pending tick borne disease w/up given leukopenia and transaminitis on admission ( although may be med induced) D/w team Thank you for this consult. ID will continue to follow Kaylee Pascual MD, MPH Infectious Disease [facility], [facility] Call [phone] with questions Consultation Information Consultation was provided via telemedicine using two-way real-time interactive telecommunication between the patient and the telemedicine provider. For the duration of the visit, the provider was performing the assessment from a different facility than the patient. This includesuse of bluetooth stethoscope forauscultationperformed by the telepresenter that the telemedicine provider can hear if described in the physical exam. Lip Cutter contact information: Please call [facility] Call Center [phone]. (Phone Number For Physician Use Only) After establishing a telemedicine visit, patient was: Patient was verified with two unique identifiers and Patient/authorized rep acknowledged consent and understanding Time Spent with Patient: Initial => 75 min History of Present Illness Reason for Consultation: R hip infection, abnormal LFTs Requesting Physician: Gadiel Gutierrez MD Attending Physician: Hernandez Wheeler MD History of Present Illness This is a 53 y male with pmh of , inflammatory arthropathy, L5 lumbosacral radiculopathy, bilateral hip joint arthritis with avascular necrosis s/p R total hip arthroplasty on 11/13/2023, He was discharge on 11/13. Approximately 2 weeks post procedure, he noted increased erythema, warmth and swelling at Right hip incision site associated with greenish yellow drainage. He was evaluated in the ED on 11/26 by orthopedics who thought that je may be having a metal reaction at staple sites. He received a dose of IV vancomycin and was discharged on Keflex/Bactrim. He took Tylenol to control pain. On antibiotics, the erythema, warmth and swelling progressed. He had a fever of T 100.4 with chills. His prompted him to return to the Ed for further evaluation. In the ED, he is afebrile and HDS. Labs with a WBc 4.25, Bun 12, cr 1.11 ast 124,alt 369, alk P 53. CTAP shows a hypodense fluid collections superficial to the greater trochanter right femur. CT hip shows a soft tissue abscess superficial to the greater trochanter. RLE doppler negative for DVT. He is currently on IV vancomycin and Zosyn. Id consulted for R hip infection. Allergies Allergy/AdvReac Type Severity Reaction Status Date / Time codeine Allergy Mild angry and Verified 12/04/23 10:30 sick to stomach doxepin AdvReac Severe irritation Verified 12/04/23 10:30 and anger Home Medications Medication Instructions Recorded Confirmed Type rizatriptan 10 mg tablet 10 mg PO .COMPLEX PRN migraine 06/17/23 12/04/23 Rx headache #9 tabs fremanezumab-vfrm 225 mg/1.5 mL 675 mg (4.5 mL) subcut Q3MO #4.5 mL 09/18/23 12/04/23 Rx subcutaneous syringe (Ajovy Syringe) gabapentin 600 mg tablet 600 mg PO TID #270 tabs 09/18/23 12/04/23 Rx fluticasone propionate 50 1 spray intranasal QAM #48 grams 10/22/23 12/04/23 Rx mcg/actuation nasal spray,suspension folic acid 1 mg tablet 1 mg PO HS #90 tabs 10/30/23 12/04/23 Rx rosuvastatin 20 mg tablet 20 mg PO HS #90 tabs 10/30/23 12/04/23 Rx omeprazole 40 mg capsule,delayed 40 mg PO BID #60 caps 11/05/23 12/04/23 Rx release 3-in-1 Commode #1 ea 11/10/23 12/04/23 Rx Wheeled Walker #1 ea 11/10/23 12/04/23 Rx acetaminophen 500 mg tablet 1,000 mg (2 x 500 mg) PO TID pain 11/11/23 12/04/23 Rx (Tylenol Extra Strength) 30 days #180 tabs aspirin 81 mg tablet,delayed 81 mg PO BID 45 days #90 tabs 11/11/23 12/04/23 Rx release (Sally Low Dose Aspirin) sennosides 8.6 mg tablet (Senokot) 8.6 mg PO BID prevent constipation 11/11/23 12/04/23 Rx 14 days #28 tabs tramadol 50 mg tablet 50 - 100 mg (1 - 2 x 50 mg) PO Q6 11/19/23 12/04/23 Rx PRN pain #40 tabs Bifidobacterium infantis 4 mg 4 mg PO BID #60 caps 12/04/23 12/04/23 Rx capsule (Align) cephalexin 500 mg capsule 500 mg PO Q6 #16 caps 12/04/23 12/04/23 Rx ferrous sulfate 325 mg (65 mg 325 mg PO TID #90 tabs 12/04/23 12/04/23 Rx iron) tablet mecobalamin (vitamin B12) 1,000 1,000 mcg PO DAILY #60 ea 12/04/23 12/04/23 Rx mcg lozenges ondansetron 4 mg disintegrating 4 mg PO Q8 PRN nausea #20 tabs 12/04/23 12/04/23 Rx tablet sulfamethoxazole 400 1 tab PO BID 4 days #8 tabs 12/04/23 12/04/23 Rx mg-trimethoprim 80 mg tablet (Bactrim) Patient History Medical History Anemia Sleep-disordered breathing pt states did not pursue advised sleep study in past Arm weakness chronic, bilat-denies change or worsening; follows with [facility] Dysphagia chronic, denies choking, denies change or worsening Lumbar stenosis pt denies change in chronic back pain; reports chronic intermittent urinary incontinence without change or worsening BPH associated with nocturia Benign essential hypertension controlled, stable per pt Cervical disc disorder with radiculopathy chronic, patient denies change or worsening Chronic fatigue denies change or worsening Leukoplakia oral mucosa per patient noted in 2019 Memory loss or impairment chronic, denies impairment in daily activities Osteoarthritis Blood dyscrasia "reason for needing daily folic acid" ? details Neuropathy hands and feet History of asthma as a child-denies needing inhalers in adulthood Thoracic back pain chronic, denies change or worsening Surgical History History of surgery on lower extremity fx tib/fib and ankle>hardware intact right leg *[address] 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 Family History Brother Diabetes Cardiovascular disease Hypercholesteremia Hypertension Mother Diabetes Cardiovascular disease Hypercholesteremia Multiple sclerosis Hypertension Other No family history of adverse response to anesthesia Social History Smoking Status: Never smoker Tobacco Type: Smokeless Tobacco (Dip or Chew) Second Hand Exposure: No; Do You Dip or Chew Tobacco: Yes (advised npo); Hx Alcohol Use: No Hx Substance Use: No Preferred Language: [place] Communication Ability: Effective Sponge Buffer Required: No Beliefs That Will Affect Care: None marital status: Current Living Situation: Family Current Living Situation Comment: and 2 sons Feels Safe at Home: Yes Safety Concerns: Feels Safe At This Time Childhood Exposure to Second-Hand Smoke: No Assistive Devices: Crutches and Walker Review of System A 10 point ROS obtained. Pertinent positives as per HPI Physical Exam Physical Exam: Gen- NAD Neck- supple HEENt- EOMI Lungs - NO increased work of breathing MSK- R hips surgical incision ; surrounding erythema. some induration/firmness/warmth. No drainage. +Tender. No crepitus Abdominal- Soft Psych- normal mood, cooperative Neuro- AAO*3 Results & Data Vital Signs (Past 12 Hours) Vital Signs Temp Pulse Resp BP Pulse Ox O2 Del Method 12/07/23 06:52 36.7 C 71 18 128/76 96 Room Air Laboratory Results 12/04/23 23:54 Aerobic Blood Culture - Preliminary Blood No growth in Aerobic bottle after 48 hours. Anaerobic Blood Culture - Preliminary No growth in Anaerobic bottle after 48 hours. 12/04/23 23:54 Aerobic Blood Culture - Preliminary Blood No growth in Aerobic bottle after 48 hours. Anaerobic Blood Culture - Preliminary No growth in Anaerobic bottle after 48 hours. 12/07/23 07:00 WBC 5.70 RBC 3.89 L Hgb 11.5 L Hct 35.3 L MCV 90.7 MCH 29.6 MCHC 32.6 RDW Std Deviation 42.9 RDW Coeff of Navid 13.0 Plt Count 338 MPV 8.8 L Immature Gran % (Auto) 0.2 Neut % (Auto) 60.9 Lymph % (Auto) 21.6 [place] % (Auto) 12.3 Eos % (Auto) 3.9 Baso % (Auto) 1.1 Neut # (Auto) 3.48 Lymph # (Auto) 1.23 [place] # (Auto) 0.70 H Eos # (Auto) 0.22 Baso # (Auto) 0.06 Immature Gran # (Auto) 0.01 ESR 45 H Sodium 138 Potassium 4.0 Chloride 101 Carbon Dioxide 31 Anion Gap 6 BUN 11 Creatinine 0.97 Est Cr Clr Drug Dosing 101.3 Est GFR ( Amer) 102.9 Est GFR (Non-Af Amer) 88.8 BUN/Creatinine Ratio 11.3 Glucose 103 H Calcium 8.7 Magnesium 2.0 Total Bilirubin 0.9 AST 57 H ALT 193 H Alkaline Phosphatase 528 H C-Reactive Protein 2.44 H Total Protein 6.8 Albumin 3.8 Globulin 3.0 Albumin/Globulin Ratio 1.3 Diagnostic Findings Abdomen/Pelvis CT 12/05/23 01:37 Exam(s): CT ABDOMEN + PELVIS Without Contrast EXAM: CT Abdomen and Pelvis Without Intravenous Contrast CLINICAL HISTORY: Reason for exam: abnormal LFT's. Postop R KATIE infection. TECHNIQUE: Axial computed tomography images of the abdomen and pelvis without intravenous contrast. CTDI is 23.64 mGy and DLP is 1413.28 mGy-cm. Automated exposure control was utilized for the study. A dose lowering technique was utilized adhering to the principles of ALARA. COMPARISON: None. FINDINGS: Lung bases: Clear. Liver: Minimal granuloma. Gallbladder and bile ducts: Normal gallbladder. No ductal dilation. Pancreas: No ductal dilation. Spleen: Scattered granulomata. Adrenals: Unremarkable. Kidneys and ureters: No renal stone or hydronephrosis. Stomach and bowel: No obstruction. Moderate fecal loading of the colon. No diverticulosis or diverticulitis. Appendix: Normal. Intraperitoneal space: No free air or fluid. Bones/joints: No acute fracture. Soft tissues: Hypodense collections superficial to the greater trochanter right femur, see separately dictated CT right hip report. Metal artifact from right hip prosthesis limits evaluation. Vasculature: No aortic aneurysm. Lymph nodes: No enlarged lymph nodes. Bladder: Equivocal wall thickening, cannot rule out cystitis. Limited evaluation due to metal artifact right hip prosthesis. Reproductive: Unremarkable as visualized. IMPRESSION: 1. Equivocal cystitis, correlate clinically. 2. Fluid collection in the soft tissues adjacent to the right hip, see separately dictated report. Electronically signed by: Ev Garcia M.D. 12/05/23 04:[address] 12/05/23 01:39 Exam(s): CT RIGHT HIP Without Contrast EXAM: CT Right Lower Extremity Without Intravenous Contrast, Hip CLINICAL HISTORY: Reason for exam: postop R KATIE infection. TECHNIQUE: Axial computed tomography images of the right hip without intravenous contrast. CTDI is 33 mGy and DLP is 1473.6 mGy-cm. Automated exposure control was utilized for the study. A dose lowering technique was utilized adhering to the principles of ALARA. Metal artifact and noncontrast technique limits evaluation. COMPARISON: No relevant prior studies available. FINDINGS: Bones/joints: Hip prosthesis with metal artifact limiting evaluation. No definite prosthetic loosening or acute bony abnormality.. No acute fracture. No dislocation. Soft tissues: Ovoid hypodense fluid collection subcutaneous fat extending to the greater trochanter femur measuring 10 x 3.8 x 2 cm, nonspecific, possible seroma, hematoma and/or abscess. IMPRESSION: 1. Suspect soft tissue abscess superficial to the greater trochanter femur. 2. Right hip prosthesis with metal artifact limiting detail. Electronically signed by: Ev Garcia M.D. 12/05/23 04:06 AM Venous Doppler Study 12/07/23 08:54 RIGHT LOWER EXTREMITY VENOUS DOPPLER HISTORY: Right hip pain. s/p hip, LE edema, aspirin had been on hold COMPARISON STUDY: None. FINDINGS: There is normal compressibility, flow, and augmentation within the right lower extremity deep venous system. IMPRESSION: No DVT within the right lower extremity ACT 112: Negative or not required by law. Electronically signed by: Sarthak Mujica M.D. 12/07/2023 9:50 AM Medications Administered Home Medications Medication Instructions Recorded Confirmed Last Taken rizatriptan 10 mg tablet 10 mg PO .COMPLEX PRN migraine 06/17/23 12/04/23 Unknown headache #9 tabs fremanezumab-vfrm 225 mg/1.5 mL 675 mg (4.5 mL) subcut Q3MO #4.5 mL 09/18/23 12/04/23 Unknown subcutaneous syringe (Ajovy Syringe) gabapentin 600 mg tablet 600 mg PO TID #270 tabs 09/18/23 12/04/23 11/13/23 03:00 fluticasone propionate 50 1 spray intranasal QAM #48 grams 05/16/24 06/28/24 06/07/24 04:00 mcg/actuation nasal spray,suspension folic acid 1 mg tablet 1 mg PO HS #90 tabs 10/30/23 12/04/23 11/12/23 22:00 rosuvastatin 20 mg tablet 20 mg PO HS #90 tabs 10/30/23 12/04/23 11/12/23 22:00 omeprazole 40 mg capsule,delayed 40 mg PO BID #60 caps 11/05/23 12/04/23 Unknown release 3-in-1 Commode #1 ea 11/10/23 12/04/23 Unknown Wheeled Walker #1 ea 11/10/23 12/04/23 Unknown acetaminophen 500 mg tablet 1,000 mg (2 x 500 mg) PO TID pain 11/11/23 12/04/23 11/13/23 03:00 (Tylenol Extra Strength) 30 days #180 tabs aspirin 81 mg tablet,delayed 81 mg PO BID 45 days #90 tabs 11/11/23 12/04/23 Unknown release (Sally Low Dose Aspirin) sennosides 8.6 mg tablet (Senokot) 8.6 mg PO BID prevent constipation 11/11/23 12/04/23 Unknown 14 days #28 tabs tramadol 50 mg tablet 50 - 100 mg (1 - 2 x 50 mg) PO Q6 11/19/23 12/04/23 Unknown PRN pain #40 tabs Bifidobacterium infantis 4 mg 4 mg PO BID #60 caps 12/04/23 12/04/23 Unknown capsule (Align) cephalexin 500 mg capsule 500 mg PO Q6 #16 caps 12/04/23 12/04/23 Unknown ferrous sulfate 325 mg (65 mg 325 mg PO TID #90 tabs 12/04/23 12/04/23 Unknown iron) tablet mecobalamin (vitamin B12) 1,000 1,000 mcg PO DAILY #60 ea 12/04/23 12/04/23 Unknown mcg lozenges ondansetron 4 mg disintegrating 4 mg PO Q8 PRN nausea #20 tabs 12/04/23 12/04/23 Unknown tablet sulfamethoxazole 400 1 tab PO BID 4 days #8 tabs 12/04/23 12/04/23 Unknown mg-trimethoprim 80 mg tablet (Bactrim) Active Medications Generic Name Dose Route Start Last Admin Trade Name Freq PRN Reason Stop Dose Admin Aspirin 81 mg 12/07/23 09:00 12/07/23 10:00 Aspirin 81 Mg Ectab PO 01/06/24 08:59 81 mg BID DEBO Administration Docusate Sodium 100 mg 12/06/23 21:00 12/07/23 07:47 Docusate Sodium 100 Mg Cap PO 01/05/24 20:59 100 mg BID DEBO Administration Gabapentin 600 mg 12/05/23 14:00 12/07/23 13:01 Gabapentin 600 Mg Tab PO 01/04/24 13:59 600 mg TID DEBO Administration Ondansetron HCl 4 mg 12/05/23 00:36 12/07/23 06:05 Ondansetron Inj 2 Mg/Ml 2 Ml Vial IV 01/04/24 00:35 4 mg Q6H PRN Administration Nausea Pantoprazole Sodium 40 mg 12/05/23 21:00 12/07/23 07:46 Pantoprazole 40 Mg Tab PO 01/04/24 20:59 40 mg BID DEBO Administration Sennosides 8.6 mg 12/06/23 14:30 12/07/23 07:46 Senna 8.6 Mg Tab PO 01/05/24 14:29 8.6 mg QAM DEBO Administration Tramadol HCl 50 mg 12/05/23 09:22 12/07/23 13:01 Tramadol Hcl 50 Mg Tablet PO 01/04/24 09:21 50 mg Q4H PRN Administration Pain
[2023-12-07] MEDS ORDERED: VANCOMYCIN CONSULT ACTIVE PRN (15:56)
--- NOTE | 2023-12-07 16:01 | Communication Note ---
Date of Service: December 07, 2023 Discussed w/ ID provider this afternoon, placed back on Vancomycin IV that was discontinued this morning, remain off Zosyn. Recs given fever/drainage/redness and pain on exam we obtain sample of fluid to ensure not abscess/infectious, message to ortho regarding concerns as well as have previously and they recommended to reach out to IR for aspiration/culture. Message sent to Giuseppe Martinez for IR, order placed. Giuseppe will plan for aspiration in AM 7/2., Order for culture in place to be changed to collected once aspiration completed in AM 7/2 Updated patient again this afternoon regarding plan
[2023-12-07] MEDS ORDERED: cephALEXin 500 MG CAP PO SCH (17:00)
[2023-12-07] MEDS: DOXYCYCLINE HYCLATE 100 MG CAP PO SCH (21:02)
[2023-12-07] MEDS: VANCOMYCIN HCL 1,250 MG in SODIUM CHLORIDE 0.9% 500 ML IV SCH (21:03)
--- NOTE | 2023-12-08 07:53 | Orthopedic Progress Note ---
Date of Service December 08, 2023 Assessment & Plan (1) Status post right hip replacement: Aspiration of the fluid around the right hip has been ordered with interventional radiology today. We will await those results. gram stain and cultures of the fluid has been ordered. Will discuss with Dr. Andino. Continue IV antibiotics per hospitalist/ID service. Subjective . 53 year old patient s/p right torsten admitted with concerns for cellulitis and elevated liver enzymes. We had recommended discharge yesterday on oral antibiotics and close follow up with orthopedics as outpatient. Infectious disease has recommend restarting IV antibiotics and aspirating the fluid around the right hip. He denies any groin pain and says today overall his hip feels much better than preop. He has some posterior/lateral pain. No other complaints. Review of Systems All systems reviewed & are unremarkable except as noted in HPI & below. Physical Exam .alert and oriented. NAD. Able to do a good straight leg raise without pain or difficulty, no pain with range of motion of his hip. Incision is intact, no open areas and no drainage. There is some mild lateral swelling. Not really erythematous. Results & Data Results & Data Laboratory Results . Diagnostic Findings . PG Care Time/CCT Total # of Minutes Spent Total Time Spent with Patient: Total time spent is greater than 50% in coordination of care (as documented) at patient's floor/unit and/or counseling patient: Coding Level of Care Code 66334 Post Operative Follow-Up Diagnoses Status post right hip replacement Z96.641
[2023-12-08 08:02] LABS: Hematocrit (blood only) 34.7 % (42.0-52.0); Hemoglobin 11.1 g/dl (14.0-18.0); Mean Corpuscular Hemoglobin 28.9 pg (25.0-34.0); Mean Corpuscular Volume 90.4 fL (80.0-100.0); Mean Platelet Volume 8.6 fL (9.4-12.4); Platelet Count 323 K/uL (130-400); RDW Coefficient of Variation 12.9 % (11.5-14.5); RDW Standard Deviation 42.6 fL (36.4-46.3); Red Blood Count 3.84 M/uL (4.70-6.10); White Blood Count 4.42 K/ul (4.8-10.8)
[2023-12-08 08:48] LABS: Albumin Level 3.8 gm/dl (3.4-5.0); Bilirubin Direct 0.2 mg/dl (0-0.2); Calcium 8.8 mg/dl (8.6-10.3); Potassium 4.1 mmol/L (3.5-5.1)
[2023-12-08 08:54] LABS: BUN Creatinine Ratio 14.1 (10-20); C Reactive Protein 2.65 mg/dl (0-0.5); Creatinine Clr Calc Pharmacy 106.8 ml/min; Est GFR (African American) 109.7 ml/min; Est GFR (Non-African American) 94.6 ml/min; Total Protein 6.8 gm/dl (6.0-8.3)
[2023-12-08] MEDS ORDERED: VANCOMYCIN LEVEL ONE (09:30)
[2023-12-08] MEDS: VANCOMYCIN HCL 1,500 MG in SODIUM CHLORIDE 0.9% 500 ML IV SCH (09:51)
--- NOTE | 2023-12-08 10:15 | Pharmacy Report ---
Pharmacy PK ABX Note - Date of Service December 08, 2023 - Assessment and Plan Assessment * 53 year old M previously receiving Zosyn and vancomycin for treatment of sepsis due to infection of right total hip arthroplasty. Vancomycin was discontinued on 12/06, but restarted by ID later that day. There was no lapse in therapy. * Per provider documentation: Initial surgery on 11/07/2023. Emergency department visit on 11/27/2023, and received vancomycin 1750 mg IV, assessed by orthopedics and discharged to office follow-up. Blood cultures from 11/26 ER visit NGTD x5days. * Renal function remains stable. Joint aspiration this AM, aspirate to be cultured. * Zosyn discontinued by ID. Plan Vancomycin * Current regimen: 1250 mg IV every 12 hours * Random level obtained 12/08/23 resulted as 11.9 mcg/mL. This is predicted to result in subtherapeutic AUC/POOJA of < 400 mg/L.hr * Change to 1500 mg IV every 12 hours * Predicted AUC at steady state: 532 mg/L.hr * Will repeat level in the next 48-72 hours if therapy is continued and/or change in patient clinical status Pharmacy will continue to follow and will adjust dose/frequency as necessary. Thank you. Pharmacy has transitioned to AUC monitoring for vancomycin. AUC/POOJA is the preferred PK/PD target and is associated with decreased risk of nephrotoxicity compared to traditional trough targets.
--- NOTE | 2023-12-08 14:48 | Ultrasound Report ---
Ultrasound-guided right hip fluid collection aspiration INDICATION: Complex appearing right hip fluid collection; evaluate for infection PROCEDURE: Procedure and risks were explained. Informed consent was obtained. A final timeout was com pleted. The right leg was prepped and draped in sterile fashion. 1% lidocaine was utilized for skin a nesthesia. Utilizing ultrasound guidance, a 5 Tamazight safety centesis catheter and 20-gauge spinal needle was adv anced into the complex right hip fluid collection. Ultrasound images were obtained. Approximately 2 m L of kelly-colored fluid was aspirated and sent to lab for culture analysis. The needle/catheter was removed and then applied. The patient tolerated the procedure well. IMPRESSION: Ultrasound-guided right hip fluid collection aspiration as above. Performed, dictated, and signed by Cristobal Martinez PA-C; to be co-signed by Dr. Giles Cochran. Electronically signed by: Giles Cochran M.D. 12/08/2023 5:11 PM
--- NOTE | 2023-12-08 18:30 | Hospitalist Progress Note ---
Date of Service December 08, 2023 Assessment & Plan (1) Infected prosthesis of right hip: Plan: CONCERN FOR / need to rule out Initial right THR was on 11/13/[address] hip noting ovoid hypodense fluid collection subcutaneous fat extending to the greater trochanter femur measuring 10 x 3.8 x 2 cm, nonspecific, possible seroma, hematoma and/or abscess. Ortho consulted; they advised IR drainage IR did perform I/D of this collection today; only 2cc obtained; sent for culture Continue IV vanco while awaiting culture HOPEFULLY this is a soft tissue infection and NOT involving the joint Appreciate ortho & IR assistance (2) Septic hip: Plan: see #1 above concern for/ruling out such Dental abscess history- Reportedly treated in September 2023 Had a temporary tooth placed, which is still present. History of metal insert/post still present in upper front teeth Heart murmur- There was a question of a previous diagnosis of mild aortic stenosis. However, no hemodynamically significant valvular stenosis was noted on echocardiogram on 10/30/2023 Mild tricuspid regurgitation EF 55-60% (3) Abnormal LFTs: Plan: liver structurally/anatomically normal on most recent imaging AST/ALT Improving alk phos still high acute hepatitis profile was negative tick-borne labs sent/pending and on doxycycline while awaiting those labs recheck LFTs am (4) Asthma: Plan: no exacerbation at this time (5) Migraine with aura and without status migrainosus, not intractable: Plan: no migraine at this time Plan DVT proph: ASA 81mg PO BID x 6 weeks post-op from his initial right THR Constipation - add miralax; cont senna Admission and Anticipated Discharge Date Admission Date: December 04, 2023 Subjective only complaint is that of right-sided lateral hip pain however, he is no pain of right hip with flexion/extension/walking no fevers/ chills eating well no other complaints except for constipation; no BM in 5 days Review of Systems Review of Systems: gen - feels well overall cv - no chest pain pulm - no dyspnea or REILLY GI - no n/v/pain Physical Exam Physical Exam: gen - NAD, looks well mouth - MMM, no thrush neck - no JVD heart - RRR, s1 s2, 1/6 RALF LSB lungs - CTA b/l abd - soft NT ND BS+ ext - no edema, pulses 2+ b/l skin - right lateral hip incision without drainage, but there is surrounding erythema especially near distal portion of incision Results & Data Results & Data Vital Signs (Past 12 Hours) Vital Signs Temp Pulse Resp BP BP Pulse Ox O2 Del Method 12/08/23 15:25 36.7 C 81 16 124/75 96 Room Air 12/08/23 10:52 72 16 124/82 99 Room Air 12/08/23 09:56 36.8 C 84 18 123/74 98 Room Air 12/08/23 07:31 36.9 C 69 18 125/74 98 Room Air Laboratory Results Laboratory Results 12/05/23 12/07/23 12/08/23 08:40 07:00 07:45 WBC 4.42 L RBC 3.84 L Hgb 11.1 L Hct 34.7 L MCV 90.4 MCH 28.9 MCHC 32.0 RDW Std Deviation 42.6 RDW Coeff of Navid 12.9 Plt Count 323 MPV 8.6 L Sodium 138 138 Potassium 4.0 4.1 Chloride 101 100 Carbon Dioxide 31 32 Anion Gap 6 6 BUN 11 13 Creatinine 0.97 0.92 Est Cr Clr Drug Dosing 101.3 106.8 Est GFR ( Amer) 102.9 109.7 Est GFR (Non-Af Amer) 88.8 94.6 BUN/Creatinine Ratio 11.3 14.1 Glucose 103 H 98 Calcium 8.7 8.8 Magnesium 2.0 Total Bilirubin 0.9 1.0 Direct Bilirubin 0.2 AST 57 H 44 H ALT 193 H 150 H Alkaline Phosphatase 528 H 535 H C-Reactive Protein 2.44 H 2.65 H Total Protein 6.8 6.8 Albumin 3.8 3.8 Globulin 3.0 Albumin/Globulin Ratio 1.3 Random Vancomycin 11.9 Babesia microti DNA PCR Not Detected Diagnostic Findings Microbiology 12/08/23 Unknown Hip,Right Gram Stain - Final 12/04/23 23:54 Blood Aerobic Blood Culture - Preliminary No growth in Aerobic bottle after 48 hours. 12/04/23 23:54 Blood Anaerobic Blood Culture - Preliminary No growth in Anaerobic bottle after 48 hours. 12/04/23 23:54 Blood Aerobic Blood Culture - Preliminary No growth in Aerobic bottle after 48 hours. 12/04/23 23:54 Blood Anaerobic Blood Culture - Preliminary No growth in Anaerobic bottle after 48 hours. PG Care Time/CCT Total # of Minutes Spent Total Time Spent with Patient: Total time spent is greater than 50% in coordination of care (as documented) at patient's floor/unit and/or counseling patient: Coding Level of Care Code 94062 SUB INP/OBS CARE 2/35MIN Diagnoses Infected prosthesis of right hip T84.51XA Septic hip M00.9 Abnormal LFTs R79.89 Asthma J45.909 Migraine with aura and without status migrainosus, not intractable G43.109
[2023-12-08] MEDS: POLYETHYLENE (MIRALAX) 17 GM PACK PO SCH (19:19)
[2023-12-08] MEDS: hydrOXYzine HCl 25 MG TAB PO SCH (20:38)
[2023-12-08] MEDS: MELATONIN 3 MG TAB PO SCH (20:39)
[2023-12-08 22:27] LABS: Babesia microti DNA Not Detected (Not Detected)
[2023-12-09 10:06] LABS: Albumin Globulin Ratio 1.3 (0.9-2); Albumin Level 3.9 gm/dl (3.4-5.0); Bilirubin,Total 0.9 mg/dl (0.2-1.0); Calcium 9.5 mg/dl (8.6-10.3); Creatinine Clr Calc Pharmacy 106.8 ml/min; Est GFR (African American) 109.7 ml/min; Est GFR (Non-African American) 94.6 ml/min; Globulin 2.9 gm/dl (2.5-4.0); Potassium 4.3 mmol/L (3.5-5.1); Total Protein 6.8 gm/dl (6.0-8.3)
[2023-12-09 10:15] LABS: Basophils # (auto) 0.05 K/uL (0.00-0.20); Basophils % (auto) 1.2 %; Eosinophils # (auto) 0.21 K/uL (0.00-0.50); Hematocrit (blood only) 34.6 % (42.0-52.0); Hemoglobin 10.9 g/dl (14.0-18.0); Lymphocytes # (auto) 1.04 K/uL (1.20-3.40); Mean Corpuscular Hemoglobin 28.7 pg (25.0-34.0); Mean Corpuscular Hgb Conc 31.5 g/dL (32.0-36.0); Mean Corpuscular Volume 91.1 fL (80.0-100.0); Mean Platelet Volume 9.1 fL (9.4-12.4); Monocytes # (auto) 0.49 K/uL (0.11-0.59); Monocytes % (auto) 11.8 %; Neutrophils # (auto) 2.37 K/uL (1.40-6.50); Platelet Count 345 K/uL (130-400); RDW Coefficient of Variation 12.8 % (11.5-14.5); RDW Standard Deviation 42.5 fL (36.4-46.3); White Blood Count 4.16 K/ul (4.8-10.8)
--- NOTE | 2023-12-09 14:10 | Infectious Disease Progress Nt ---
Date of Service December 09, 2023 Assessment & Plan (1) Abnormal transaminases: (2) Wound cellulitis after surgery: Plan This is a 53 y male with pmh of , inflammatory arthropathy, L5 lumbosacral radiculopathy, bilateral hip joint arthritis with avascular necrosis s/p R total hip arthroplasty on 11/13/2023, He was discharge on 11/13. Approximately 2 weeks post procedure, he noted increased erythema, warmth and swelling at Right hip incision site associated with greenish yellow drainage. He was evaluated in the ED on 11/26 by orthopedics who thought that je may be having a metal reaction at staple sites. He received a dose of IV vancomycin and was discharged on Keflex/Bactrim. He took Tylenol to control pain. On antibiotics, the erythema, warmth and swelling progressed. He had a fever of T 100.4 with chills. His prompted him to return to the Ed for further evaluation. In the ED, he was afebrile and HDS. Labs with a WBc 4.25, Bun 12, cr 1.11 ast 124,alt 369, alk P 53. CTAP shows a hypodense fluid collections superficial to the greater trochanter right femur. CT hip shows a soft tissue abscess superficial to the greater trochanter. RLE doppler negative for DVT. He was on n IV vancomycin and Zosyn. Id consulted for R hip infection. #R TKA 11/12 #R TKA site SSTI/cellulitis with soft tissue collection #Transaminitis #leukopenia - Area of R hip incision is still red, warm, tender and indurated. He underwent co;;ectipn aspiration on 12/07 . He was is IV vanco/zosyn and has received antibiotics for at least 1 week prior to admission, so growth may be decreased He may need washout or area vs aspiration of collection with culture. If per ortho there is no involvement of hardware, can likely treat with 2 weeks of oral antibiotics targeted to organism growing from collection He had leukopenia on admission, but improving. Unclear cause of transaminitis ( had received keflex and high doses of tylenol prior to admission ). Lyme screen negative,Babesia Pcr neg, Anaplasma pcr pending. Acute hepatitis panel negative Esr 32---> 45 Crp 1.87--> 2.65 Recommendations Follow collection aspiration culture Follow anaplasma testing Continue IV vancomycin per pharmacy protocol for now pending Culture data. IV vanco should cover common skin britney staph, strep and MRSA. Zosamantajorge savage dced on 12/06 Continue doxycycline pending anaplasma pcr given leukopenia and transaminitis on admission ( although may be med induced) - monitor LFTs If aspiration cx remains negative can dc on oral doxycycline 100 mg po bid and cefpodoxime 200 mg po bid for 2 weeks post aspiration, if ortho feels this is a superficial infection and there is no hardware involvement. Per imaging, collection is superficial to greater troc of R femur. ID will continue to follow Kaylee Pascual MD, MPH Infectious Disease [facility], [facility] Call [phone] with questions Admission and Anticipated Discharge Date Admission Date: December 04, 2023 Subjective Subsequent visit was provided via telemedicine using two-way real-time interactive telecommunication between the patient and the telemedicine provider. For the duration of the visit, the provider was performing the assessment from a different facility than the patient. This includesuse of bluetooth stethoscope forauscultationperformed by the telepresenter that the telemedicine provider can hear if described in the physical exam. Generating Station Mechanic contact information: Please call [facility] . (Phone Number For Physician Use Only) After establishing a telemedicine visit, patient was: Patient was verified with two unique identifiers Time Spent with Patient: Subsequent => 25 min He underwent aspiration of collection yesterday. Prelim moderate WBC on g/s. CX with NGTD He still has some pain at site,but less. Physical Exam Physical Exam: Gen- NAD Neck- supple HEENt- EOMI Lungs - NO increased work of breathing MSK- R hips surgical incision ; surrounding erythema. some induration/firmness/warmth, mostly at distal portion of incision. No drainage. +Tender. No crepitus Abdominal- Soft Psych- normal mood, cooperative Neuro- AAO*3 Results & Data Vital Signs (Past 12 Hours) Vital Signs Temp Pulse Resp BP Pulse Ox O2 Del Method 12/09/23 07:10 37.1 C 65 16 115/70 98 Room Air Laboratory Results Short CBC 12/09/23 Range/Units 09:33 WBC 4.16 L (4.8-10.8) K/ul Hgb 10.9 L (14.0-18.0) g/dl Hct 34.6 L (42.0-52.0) % Plt Count 345 (130-400) K/uL BMP 12/09/23 09:33 Sodium 138 Potassium 4.3 Chloride 102 Carbon Dioxide 31 BUN 12 Creatinine 0.92 Glucose 136 H Calcium 9.5 Liver Function 12/09/23 Range/Units 09:33 Total Bilirubin 0.9 (0.2-1.0) mg/dl AST 45 H (13-39) U/L ALT 127 H (7-52) U/L Alkaline Phosphatase 554 H (34-104) U/L Albumin 3.9 (3.4-5.0) gm/dl Diagnostic Findings Microbiology 12/08/23 Unknown Hip,Right Gram Stain - Final 12/08/23 Unknown Hip,Right Aerobic and Anaerobic Culture - Preliminary No growth to date. 12/04/23 23:54 Blood Aerobic Blood Culture - Preliminary No growth in Aerobic bottle after 48 hours. 12/04/23 23:54 Blood Anaerobic Blood Culture - Preliminary No growth in Anaerobic bottle after 48 hours. 12/04/23 23:54 Blood Aerobic Blood Culture - Preliminary No growth in Aerobic bottle after 48 hours. 12/04/23 23:54 Blood Anaerobic Blood Culture - Preliminary No growth in Anaerobic bottle after 48 hours. Medications Administered Home Medications Medication Instructions Recorded Confirmed Last Taken rizatriptan 10 mg tablet 10 mg PO .COMPLEX PRN migraine 06/17/23 12/04/23 Unknown headache #9 tabs fremanezumab-vfrm 225 mg/1.5 mL 675 mg (4.5 mL) subcut Q3MO #4.5 mL 09/18/23 12/04/23 Unknown subcutaneous syringe (Ajovy Syringe) gabapentin 600 mg tablet 600 mg PO TID #270 tabs 09/18/23 12/04/23 11/13/23 03:00 fluticasone propionate 50 1 spray intranasal QAM #48 grams 10/22/23 12/04/23 11/13/23 04:00 mcg/actuation nasal spray,suspension folic acid 1 mg tablet 1 mg PO HS #90 tabs 10/30/23 12/04/23 11/12/23 22:00 rosuvastatin 20 mg tablet 20 mg PO HS #90 tabs 10/30/23 12/04/23 11/12/23 22:00 omeprazole 40 mg capsule,delayed 40 mg PO BID #60 caps 11/05/23 12/04/23 Unknown release 3-in-1 Commode #1 ea 11/10/23 12/04/23 Unknown Wheeled Walker #1 ea 11/10/23 12/04/23 Unknown acetaminophen 500 mg tablet 1,000 mg (2 x 500 mg) PO TID pain 11/11/23 12/04/23 11/13/23 03:00 (Tylenol Extra Strength) 30 days #180 tabs aspirin 81 mg tablet,delayed 81 mg PO BID 45 days #90 tabs 11/11/23 12/04/23 Unknown release (Sally Low Dose Aspirin) sennosides 8.6 mg tablet (Senokot) 8.6 mg PO BID prevent constipation 11/11/23 12/04/23 Unknown 14 days #28 tabs tramadol 50 mg tablet 50 - 100 mg (1 - 2 x 50 mg) PO Q6 11/19/23 12/04/23 Unknown PRN pain #40 tabs Bifidobacterium infantis 4 mg 4 mg PO BID #60 caps 12/04/23 12/04/23 Unknown capsule (Align) cephalexin 500 mg capsule 500 mg PO Q6 #16 caps 12/04/23 12/04/23 Unknown ferrous sulfate 325 mg (65 mg 325 mg PO TID #90 tabs 12/04/23 12/04/23 Unknown iron) tablet mecobalamin (vitamin B12) 1,000 1,000 mcg PO DAILY #60 ea 12/04/23 12/04/23 Unknown mcg lozenges ondansetron 4 mg disintegrating 4 mg PO Q8 PRN nausea #20 tabs 12/04/23 12/04/23 Unknown tablet sulfamethoxazole 400 1 tab PO BID 4 days #8 tabs 12/04/23 12/04/23 Unknown mg-trimethoprim 80 mg tablet (Bactrim) Active Medications Generic Name Dose Route Start Last Admin Trade Name Freq PRN Reason Stop Dose Admin Aspirin 81 mg 12/07/23 09:00 12/09/23 08:50 Aspirin 81 Mg Ectab PO 01/06/24 08:59 81 mg BID DEBO Administration Docusate Sodium 100 mg 12/06/23 21:00 12/09/23 08:50 Docusate Sodium 100 Mg Cap PO 01/05/24 20:59 100 mg BID DEBO Administration Doxycycline Hyclate 100 mg 12/07/23 21:00 12/09/23 08:50 Doxycycline Hyclate 100 Mg Cap PO 12/14/23 20:59 100 mg BID DEBO Administration Gabapentin 600 mg 12/05/23 14:00 12/09/23 14:04 Gabapentin 600 Mg Tab PO 01/04/24 13:59 600 mg TID DEBO Administration Hydroxyzine HCl 25 mg 12/08/23 21:00 12/08/23 20:38 Hydroxyzine Hcl 25 Mg Tab PO 01/07/24 20:59 25 mg HS DEBO Administration Vancomycin HCl 1,500 mg/ 530 mls @ 200 mls/hr 12/08/23 09:00 12/09/23 11:43 Sodium Chloride IV 12/15/23 08:59 Infused Q12H DEBO Infusion Melatonin 3 mg 12/08/23 21:00 12/08/23 20:39 Melatonin 3 Mg Tab PO 01/07/24 20:59 3 mg HS DEBO Administration Ondansetron HCl 4 mg 12/05/23 00:36 12/07/23 23:41 Ondansetron Inj 2 Mg/Ml 2 Ml Vial IV 01/04/24 00:35 4 mg Q6H PRN Administration Nausea Pantoprazole Sodium 40 mg 12/05/23 21:00 12/09/23 08:50 Pantoprazole 40 Mg Tab PO 01/04/24 20:59 40 mg BID DEBO Administration Polyethylene Glycol 17 gm 12/08/23 18:30 12/09/23 08:50 Polyethylene (Miralax) 17 Gm Pack PO 01/07/24 18:29 17 gm DAILY DEBO Administration Sennosides 8.6 mg 12/06/23 14:30 12/09/23 08:50 Senna 8.6 Mg Tab PO 01/05/24 14:29 8.6 mg QAM DEBO Administration Tramadol HCl 50 mg 12/05/23 09:22 12/08/23 13:02 Tramadol Hcl 50 Mg Tablet PO 01/04/24 09:21 50 mg Q4H PRN Administration Pain
--- NOTE | 2023-12-09 19:18 | Hospitalist Progress Note ---
Date of Service December 09, 2023 Assessment & Plan (1) Infected prosthesis of right hip: Plan: initial CONCERN FOR such, but likelihood of hip/hardware infection very unlikely Initial right THR was on 11/13/[address] hip noting ovoid hypodense fluid collection subcutaneous fat extending to the greater trochanter femur measuring 10 x 3.8 x 2 cm, nonspecific, possible seroma, hematoma and/or abscess. Ortho consulted; they advised IR drainage IR did perform I/D of this collection; only 2cc obtained; sent for culture; culture remains negative Continue IV vanco while awaiting culture likely this is a soft tissue infection only joint likely not involved Appreciate ortho & IR assistance Appreciate ID assistance If culture from right hip remains negative plan to send home with cefpodoxime 200mg BID + doxy 100mg BID to complete total 14 days of Rx from date of 12/08/23 (2) Septic hip: Plan: see #1 above UNLIKELY Dental abscess history- Reportedly treated in September 2023 Had a temporary tooth placed, which is still present. History of metal insert/post still present in upper front teeth Heart murmur- There was a question of a previous diagnosis of mild aortic stenosis. However, no hemodynamically significant valvular stenosis was noted on echocardiogram on 10/30/2023 Mild tricuspid regurgitation EF 55-60% (3) Abnormal LFTs: Plan: liver structurally/anatomically normal on most recent imaging AST/ALT Improving alk phos still high but stable acute hepatitis profile was negative tick-borne labs sent/pending and on doxycycline while awaiting those labs recheck LFTs am again for stability hold statin (4) Asthma: Plan: no exacerbation at this time (5) Migraine with aura and without status migrainosus, not intractable: Plan: no migraine at this time Plan DVT proph: ASA 81mg PO BID x 6 weeks post-op from his initial right THR Constipation - improved; cont miralax; cont senna Admission and Anticipated Discharge Date Admission Date: December 04, 2023 Subjective patient overall feeling well eating/drinking had bowel movement today slept very good last night; he remains tired/sleepy today mild pain over incision but able to weight bear & bend the right hip w/o difficulty no new complaints Review of Systems Review of Systems: gen - no fevers or chills pulm - no dyspnea CV - no chest pain GI - no N/V Physical Exam Physical Exam: gen - NAD, looks well, sitting in chair mouth - MMM, no thrush neck - no JVD heart - RRR, s1 s2, 1/6 RALF LSB lungs - CTA b/l abd - soft NT ND BS+ ext - no edema, pulses 2+ b/l skin - right lateral hip incision without drainage; well-healed; mild surrounding erythema near distal portion of incision but nothing fluctuant; no abscess; nontender musculo - right hip with full ROM without pain Results & Data Results & Data Vital Signs (Past 12 Hours) Vital Signs Temp Pulse Resp BP Pulse Ox O2 Del Method 12/09/23 15:44 36.8 C 78 18 123/73 97 Room Air Laboratory Results Laboratory Results - last 24 hr 12/05/23 12/09/23 08:40 09:33 WBC 4.16 L RBC 3.80 L Hgb 10.9 L Hct 34.6 L MCV 91.1 MCH 28.7 MCHC 31.5 L RDW Std Deviation 42.5 RDW Coeff of Navid 12.8 Plt Count 345 MPV 9.1 L Immature Gran % (Auto) 0.0 Neut % (Auto) 57.0 Lymph % (Auto) 25.0 Posey % (Auto) 11.8 Eos % (Auto) 5.0 Baso % (Auto) 1.2 Neut # (Auto) 2.37 Lymph # (Auto) 1.04 L Posey # (Auto) 0.49 Eos # (Auto) 0.21 Baso # (Auto) 0.05 Immature Gran # (Auto) 0.00 L Sodium 138 Potassium 4.3 Chloride 102 Carbon Dioxide 31 Anion Gap 5 BUN 12 Creatinine 0.92 Est Cr Clr Drug Dosing 106.8 Est GFR ( Amer) 109.7 Est GFR (Non-Af Amer) 94.6 BUN/Creatinine Ratio 13.0 Glucose 136 H Calcium 9.5 Total Bilirubin 0.9 AST 45 H ALT 127 H Alkaline Phosphatase 554 H Total Protein 6.8 Albumin 3.9 Globulin 2.9 Albumin/Globulin Ratio 1.3 Babesia microti DNA PCR Not Detected Diagnostic Findings Microbiology 12/04/23 23:54 Blood Aerobic Blood Culture - Final No growth in Aerobic bottle after 5 days. 12/04/23 23:54 Blood Anaerobic Blood Culture - Final No growth in Anaerobic bottle after 5 days. 12/04/23 23:54 Blood Aerobic Blood Culture - Final No growth in Aerobic bottle after 5 days. 12/04/23 23:54 Blood Anaerobic Blood Culture - Final No growth in Anaerobic bottle after 5 days. 12/08/23 Unknown Hip,Right Gram Stain - Final 12/08/23 Unknown Hip,Right Aerobic and Anaerobic Culture - Preliminary No growth to date. PG Care Time/CCT Total # of Minutes Spent Total Time Spent with Patient: Total time spent is greater than 50% in coordination of care (as documented) at patient's floor/unit and/or counseling patient: Coding Level of Care Code 30934 SUB INP/OBS CARE 2/35MIN Diagnoses Infected prosthesis of right hip T84.51XA Septic hip M00.9 Abnormal LFTs R79.89 Asthma J45.909 Migraine with aura and without status migrainosus, not intractable G43.109
[2023-12-10 06:00] LABS: Creatinine Clr Calc Pharmacy 114.3 ml/min; Est GFR (African American) 114.7 ml/min
[2023-12-10 06:57] LABS: Albumin Globulin Ratio 1.3 (0.9-2); Albumin Level 3.7 gm/dl (3.4-5.0); BUN Creatinine Ratio 13.9 (10-20); Bilirubin,Total 0.6 mg/dl (0.2-1.0); Calcium 8.7 mg/dl (8.6-10.3); Creatinine Clr Calc Pharmacy 124.4 ml/min; Est GFR (African American) 118.8 ml/min; Est GFR (Non-African American) 102.5 ml/min; Globulin 2.8 gm/dl (2.5-4.0); Potassium 3.9 mmol/L (3.5-5.1); Total Protein 6.5 gm/dl (6.0-8.3)
--- NOTE | 2023-12-10 08:31 | Pharmacy Report ---
Pharmacy PK ABX Note - Date of Service December 10, 2023 - Assessment and Plan Assessment * 53 year old M previously receiving Zosyn and vancomycin for treatment of sepsis due to infection of right total hip arthroplasty. Vancomycin was discontinued on 12/06, but restarted by ID later that day. There was no lapse in therapy. * Per provider documentation: Initial surgery on 11/07/2023. Emergency department visit on 11/27/2023, and received vancomycin 1750 mg IV, assessed by orthopedics and discharged to office follow-up. Blood cultures from 11/26 ER visit NGTD x5days. * Renal function remains stable. Joint aspiration 12/07 - cultures w NGTD. * Zosyn discontinued by ID. Plan Vancomycin * Current regimen: 1500 mg IV every 12 hours * Random level obtained 12/10/23 resulted as 14.7 mcg/mL. This is predicted to result in a therapeutic AUC * Predicted AUC at steady state: 460 mg/L.hr * Will repeat level in 4 days if therapy is continued, or sooner if change in patient clinical status Pharmacy will continue to follow and will adjust dose/frequency as necessary. Thank you. Pharmacy has transitioned to AUC monitoring for vancomycin. AUC/POOJA is the preferred PK/PD target and is associated with decreased risk of nephrotoxicity compared to traditional trough targets.
[2023-12-10] MEDS: VANCOMYCIN LEVEL ONE (08:39)
--- NOTE | 2023-12-10 11:50 | Discharge Summary ---
Date of Service date of admission - December 04, 2023 date of discharge - December 10, 2023 Admission HPI Per Admitting Provider The patient is a 53-year-old male with medical history including carpal tunnel syndrome, foot drop, inflammatory arthropathy, lumbar degenerative disc disease, L5 lumbosacral radiculopathy, bilateral hip joint arthritis, and migraine. He underwent a right total hip arthroplasty on 11/13/2023, and was discharged to home on 11/14/2023. He was seen in the emergency department on 11/27/2023 due to wound drainage, was given vancomycin IV, and assessed by orthopedic surgery during that visit. He was placed on Keflex on 11/24, and had Bactrim added on 11/26 by outpatient physicians. He presents to the emergency department this evening, due to his 's concerns regarding persistent and progressive redness, warmth, and temperature. Principal Diagnosis 1. right leg/hip incisional skin infection - improving 2. concern for right hip joint infection - unlikely/ruled out 3. abnormal liver function tests - improving 4. concern for tick-borne illness Discharge Exam gen - NAD, looks well mouth - MMM, no thrush neck - no JVD heart - RRR, s1 s2, 1/6 RALF LSB lungs - CTA b/l abd - soft NT ND BS+ ext - no edema, pulses 2+ b/l skin - right lateral hip incision without drainage; well-healed. Minimal/scant erythema near distal portion of incision but nothing fluctuant; no abscess; nontender musculo - right hip with full ROM without pain Discharge Data Allergies Allergy/AdvReac Type Severity Reaction Status Date / Time codeine Allergy Mild angry and Verified 12/16/23 14:01 sick to stomach doxepin AdvReac Severe irritation Verified 12/16/23 14:01 and anger sulfamethoxazole AdvReac Verified 12/16/23 14:01 [From Bactrim] trimethoprim [From Bactrim] AdvReac Verified 12/16/23 14:01 Consultations Infectious Diseases Orthopedic Surgery PT, OT Procedures Performed u/s-guided right hip aspiration by IR Ordered Studies Abdomen/Pelvis CT 12/05/23 01:37 Exam(s): CT ABDOMEN + PELVIS Without Contrast EXAM: CT Abdomen and Pelvis Without Intravenous Contrast CLINICAL HISTORY: Reason for exam: abnormal LFT's. Postop R KATIE infection. TECHNIQUE: Axial computed tomography images of the abdomen and pelvis without intravenous contrast. CTDI is 23.64 mGy and DLP is 1413.28 mGy-cm. Automated exposure control was utilized for the study. A dose lowering technique was utilized adhering to the principles of ALARA. COMPARISON: None. FINDINGS: Lung bases: Clear. Liver: Minimal granuloma. Gallbladder and bile ducts: Normal gallbladder. No ductal dilation. Pancreas: No ductal dilation. Spleen: Scattered granulomata. Adrenals: Unremarkable. Kidneys and ureters: No renal stone or hydronephrosis. Stomach and bowel: No obstruction. Moderate fecal loading of the colon. No diverticulosis or diverticulitis. Appendix: Normal. Intraperitoneal space: No free air or fluid. Bones/joints: No acute fracture. Soft tissues: Hypodense collections superficial to the greater trochanter right femur, see separately dictated CT right hip report. Metal artifact from right hip prosthesis limits evaluation. Vasculature: No aortic aneurysm. Lymph nodes: No enlarged lymph nodes. Bladder: Equivocal wall thickening, cannot rule out cystitis. Limited evaluation due to metal artifact right hip prosthesis. Reproductive: Unremarkable as visualized. IMPRESSION: 1. Equivocal cystitis, correlate clinically. 2. Fluid collection in the soft tissues adjacent to the right hip, see separately dictated report. Electronically signed by: Ev Garcia M.D. 12/05/23 04:[address] 12/05/23 01:39 Exam(s): CT RIGHT HIP Without Contrast EXAM: CT Right Lower Extremity Without Intravenous Contrast, Hip CLINICAL HISTORY: Reason for exam: postop R KATIE infection. TECHNIQUE: Axial computed tomography images of the right hip without intravenous contrast. CTDI is 33 mGy and DLP is 1473.6 mGy-cm. Automated exposure control was utilized for the study. A dose lowering technique was utilized adhering to the principles of ALARA. Metal artifact and noncontrast technique limits evaluation. COMPARISON: No relevant prior studies available. FINDINGS: Bones/joints: Hip prosthesis with metal artifact limiting evaluation. No definite prosthetic loosening or acute bony abnormality.. No acute fracture. No dislocation. Soft tissues: Ovoid hypodense fluid collection subcutaneous fat extending to the greater trochanter femur measuring 10 x 3.8 x 2 cm, nonspecific, possible seroma, hematoma and/or abscess. IMPRESSION: 1. Suspect soft tissue abscess superficial to the greater trochanter femur. 2. Right hip prosthesis with metal artifact limiting detail. Electronically signed by: Ev Garcia M.D. 12/05/23 04:06 AM Venous Doppler Study 12/07/23 08:54 RIGHT LOWER EXTREMITY VENOUS DOPPLER HISTORY: Right hip pain. s/p hip, LE edema, aspirin had been on hold COMPARISON STUDY: None. FINDINGS: There is normal compressibility, flow, and augmentation within the right lower extremity deep venous system. IMPRESSION: No DVT within the right lower extremity ACT 112: Negative or not required by law. Electronically signed by: Sarthak Mujica M.D. 12/07/2023 9:50 AM Joint Aspiration/Injection 12/08/23 15:54 Ultrasound-guided right hip fluid collection aspiration INDICATION: Complex appearing right hip fluid collection; evaluate for infection PROCEDURE: Procedure and risks were explained. Informed consent was obtained. A final timeout was completed. The right leg was prepped and draped in sterile fashion. 1% lidocaine was utilized for skin anesthesia. Utilizing ultrasound guidance, a 5 Polish safety centesis catheter and 20-gauge spinal needle was advanced into the complex right hip fluid collection. Ultrasound images were obtained. Approximately 2 mL of kelly-colored fluid was aspirated and sent to lab for culture analysis. The needle/catheter was removed and then applied. The patient tolerated the procedure well. IMPRESSION: Ultrasound-guided right hip fluid collection aspiration as above. Performed, dictated, and signed by Cristobal Martinez PA-C; to be co-signed by Dr. Giles Cochran. Electronically signed by: Giles Cochran M.D. 12/08/2023 5:11 PM Hospital Course (1) Seroma of musculoskeletal structure after musculoskeletal system procedure: There was initial CONCERN for infected prosthesis of right hip. Initial right THR was on 11/13/[address] hip noted an ovoid hypodense fluid collection extending to the greater trochanter of the femur measuring 10 x 3.8 x 2 cm -- possible seroma, hematoma and/or abscess. Orthopedics & ID were both consulted; they advised IR drainage. IR did perform aspiration of this collection; only 2cc obtained; sent for culture; culture remained negative while here. He received IV antibiotics while the right hip culture was pending. Given that the culture remained negative, and given that the suspicion for joint infection or abscess was very low, he was d/c home on oral antibiotics for SOFT TISSUE INFECTION/incisional infection only. The fluid collection was indeed just a seroma. Regimen at discharge: * cefpodoxime 200mg BID x 14 days (day #1 - 12/08/23) * doxycycline 100mg BID x 14 days (day #1 - 12/08/23) He will need f/u with Dr Andino in the orthopedic clinic after discharge for recheck. (2) Septic hip: ruled out / highly unlikely see #1 above (3) Abnormal LFTs: Patient presented with elevated alk phos, AST, and ALT. In addition his WBC count was mildly low. He was placed on doxycycline to cover for the possibility of tick-borne infection. Imaging showed that the liver was structurally/anatomically normal. Serial LFTs showed that the AST/ALT were improving. alk phos was still high but stable. acute hepatitis profile was negative. He was asked to hold his statin as his LFTs were still not fully normal at discharge. He will be on doxycycline for soft tissue infection which will cover for tick- borne infection while serologies for anaplasmosis, etc are pending. Very possible that his elevated LFTs may have been due to recent bactrim usage. (4) Asthma: no exacerbation while here (5) Migraine with aura and without status migrainosus, not intractable: no migraine while here Plan DVT proph: Aspirin 81mg PO BID x 6 weeks from the date of his initial right THR (11/13/23) Total Time Total Time Spent Total Time Spent (In Minutes): 40 Discharge Plan Discharge Items Patient Disposition: Home - Self-Care Reason For Visit: Concern for right leg infection Discharge Diagnosis: 1. right leg/hip incisional skin infection - improving 2. concern for right hip joint infection - unlikely/ruled out, culture negative to date 3. abnormal liver function tests - improving 4. concern for tick-borne illness - testing is pending Activity: As commented below Activity Comment: follow any instructions previously given by Dr Andino regarding the R leg Bathing Comment: may shower at this time Non-emergency contact: Primary Care Provider and Specialist Call non-emergency contact if: you have any medication questions, your symptoms worsen, your pain is not controlled, your pain is worsening, you have a fever, your wound has increased redness, your wound has increased drainage and your wound pain has increased Follow-up/Referrals: Estiven Wade MD [Primary Care Provider] - (5-7 days ) Huan Andino MD [Physician] - 12/28/23 (although you are scheduled with Dr Andino later this month, please see him sooner - ideally within 1 week - for recheck of the right leg ) Diet: Regular Addtl Attending Provider Instructions: Mr Singh, You were hospitalized due to concerns of an infection of the right hip. Imaging showed a fluid collection around the outside of the joint but not into the artificial joint itself. You received IV antibiotics during your stay for this soft tissue/incisional infection. On 12/07 you underwent a needle aspiration of the fluid collection by Giuseppe Martinez with radiology. This culture has not grown any specific bacterium. You were seen by Dr Andino's team as well as infectious diseases. Based on how your hospital stay went, the culture results, your ability to move the right hip joint, and other factors there is low suspicion that the hip joint itself is harboring infection. The infection is likely superficial and confined to the areas in/around the incision. In addition, your liver function tests were all high. These are improving nicely. Tylenol usage, recent bactrim antibiotic, and other factors likely caused the elevation in the liver function tests. We also sent off tick-borne illness labs as diseases spread by ticks can cause liver tests to rise. Recommendations - 1. antibiotics - * cefpodoxime - 200mg twice daily x 12 days, first dose TONIGHT * doxycycline - 100mg twice daily x 12 days, first dose TONIGHT * both antibiotics can cause diarrhea as a side effect; this is common * occasionally doxycycline can cause stomach upset/heartburn * rarely doxycycline can cause a rash if you go outside and spend a large amount of time in the sun; thus, over the next 2 weeks, please use sunscreen liberally and cover up * you can take an [id number]-rtvyvuw probiotic or eat yogurt once-twice daily to help prevent diarrhea from the antibiotics 2. please have your CBC and liver tests repeated in about 1 week; your family doctor can check these 3. HOLD tylenol at this time 4. HOLD crestor (rosuvastatin) at this time 5. continue tramadol as needed for pain control 6. follow all instructions previously given by Dr Andino following the right hip replacement 7. continue twice daily aspirin for DVT prevention 8. avoid alcoholic beverages at this time 9. pklf-pcv-lhjjkix iron - take once a day only; you will likely need to take the iron for 1-2 months, possibly shorter duration; your family doctor can follow your blood counts Follow-up - see separate section Return to [facility] if - * you have fevers over 100 degrees * you have worsening redness, drainage, or pain from the right hip incision * you have worsening swelling of the right hip/thigh * you develop severe diarrhea * any other concerns It was our pleasure to care for you! -Dr Burroughs Pending Studies at Discharge: Yes Studies:: Blood cultures -- no growth to date (no bloodstream infection found) Anaplasmosis PCR test (a tick-borne illness) Stand-Alone Forms: My [facility], Pain - Opioid Pain Management, Smoking Cessation Medications and DC Order Prescriptions: New doxycycline hyclate 100 mg Capsule 100 mg PO BID 12 Days Qty: 24 0RF cefpodoxime 200 mg tablet 200 mg PO BID 12 Days Qty: 24 0RF Rx Instructions: must administer with a meal/food Continued fluticasone propionate 50 mcg/actuation spray,suspension 1 spray INTNAS QAM Qty: 48 3RF Rx Instructions: administer into each nostril folic acid 1 mg tablet 1 mg PO HS Qty: 90 3RF omeprazole 40 mg capsule,delayed release(DR/EC) 40 mg PO BID Qty: 60 2RF (DME) 3-in-1 Com[place] [facility] [place] Rx Instructions .MEDSUPPLY Qty: 1 0RF Rx Instructions: As directed (DME) Wheeled Walker [facility] [place] Rx Instructions .MEDSUPPLY Qty: 1 0RF Rx Instructions: As directed sennosides [Senokot] 8.6 mg tablet 8.6 mg PO BID 14 Days Qty: 28 0RF Rx Instructions: Take two times a day to prevent/treat constipation aspirin [Sally Low Dose Aspirin] 81 mg tablet,delayed release (DR/EC) 81 mg PO BID 45 Days Qty: 90 0RF Rx Instructions: Take to prevent blood clots. rizatriptan 10 mg tablet 10 mg PO .COMPLEX MDD 20mg PRN (Reason: migraine headache) Qty: 9 5RF Rx Instructions: 10 mg orally prn migraine, repeat after two hours prn gabapentin 600 mg tablet 600 mg PO TID Qty: 270 3RF Ajovy Syringe 225 mg/1.5 mL syringe 675 mg SQ Q3MO Qty: 4.5 3RF Rx Instructions: 4.5 ml (three injections) every 3 months Align 4 mg capsule 4 mg PO BID Qty: 60 0RF ondansetron 4 mg tablet,disintegrating 4 mg PO Q8 PRN (Reason: nausea) Qty: 20 1RF Rx Instructions: Take as needed for nausea mecobalamin (vitamin B12) 1,000 mcg lozenge 1,000 mcg PO DAILY Qty: 60 1RF Rx Instructions: allow to dissolve in mouth OR may chew lightly before swallowing Changed ferrous sulfate 325 mg (65 mg iron) tablet 325 mg PO DAILY Qty: 90 1RF Discontinued tramadol 50 mg tablet 50 - 100 mg PO Q6 PRN (Reason: pain) Qty: 40 0RF Rx Instructions: Take as needed for pain cephalexin 500 mg capsule 500 mg PO Q6 Qty: 16 0RF sulfamethoxazole-trimethoprim [Bactrim] 400-80 mg tablet 1 tab PO BID 4 Days Qty: 8 0RF No Action polyethylene glycol 3350 [Miralax] 17 gram powder in packet 17 g PO DAILY PRN Rx Instructions: purchase [id number]-rcixmhu ciclopirox 0.77 % cream 1 applic topical BID 28 Days Qty: 30 2RF tolnaftate [Tinactin] 1 % powder 1 applic topical DAILY Qty: 45 2RF Rx Instructions: Once Tinea groin resolved tramadol 50 mg tablet 50 - 100 mg PO Q6 PRN (Reason: pain) Qty: 60 1RF Rx Instructions: Take as needed for pain Discharge Orders: Discharge Order (Routine); Ordered 12/10/23 Ordered By: Keon Burroughs Admission Data Admit Date/Time: 12/04/23 23:57 Attending Provider: Keon Burroughs Admit Provider: Gadiel Gutierrez Primary Care Provider: Estiven Wade Other Providers: Gadiel Gutierrez; Marybel Rao; Lissett Gray; Corey Melara Antonie J.; Dalila Curry; Caroline King; Huan Andino Other Interventions: Discharge Summary Assessment (RN) Last Done: 12/10/23 11:55 Coding Level of Care Code 54153 INP/OBS DISCH >30 MIN Diagnoses Seroma of musculoskeletal structure after musculoskeletal system procedure M96.842 Septic hip M00.9 Abnormal LFTs R79.89 Asthma J45.909 Migraine with aura and without status migrainosus, not intractable G43.109
[2023-12-14] MEDS ORDERED: VANCOMYCIN LEVEL ONE (08:30)
--- NOTE | 2023-12-14 08:42 | Coding Query ---
This needs to be completed by the attending physician thank you Gadiel Gutierrez MD SEPSIS To promote full compliance with coding requirements relating to patient care, physician participation is requested in all cases of weir fisher uncertainty. Please assist us with the question(s) below: In responding to this query, please exercise your independent professional judgement. The fact that a question is asked does not imply that any particular answer is desired or expected. We appreciate your clarification on this issue. Throughout the medical record, you have clearly documented a localized infection and your patient has clinical evidence of a generalized sepsis or severe sepsis. The term urosepsis is a nonspecific entity and is coded as an UTI. If the patient has sepsis, severe sepsis, from an urinary source or some other source, please clarify in your response below. The medical record reflects the following clinical findings: H&P: * Vitals: Temp - 37.3; Pulse - 86; Resp - 18; BP - 137/79; Pulse Ox - 97 * WBC - 425 * Glucose - * Sepsis due to infection of right total hip arthroplasty * Infected prosthesis of right hip/Septic hip * Vancomycin IV per pharmacokinetic monitoring * Zosyn 4.5 g IV every [address] 12/05/23: * IMPRESSION: Suspect soft tissue abscess superficial to the greater trochanter femur. Orthopedic Consult 12/05/23 * From the orthopedic standpoint I do not think his hip is infected at all. * He has been admitted for sepsis and is not septic. * Could be related to his antibiotic treatment versus alcohol use or other. Orthopedic PN 12/06/2023: * Wound cellulitis after surgery Discharge Summary: * Infected prosthesis of right hip: initial CONCERN FOR such, but likelihood of hip/hardware infection very unlikely * IR did perform I/D of this collection; only 2cc obtained; sent for culture; culture remains negative * Discharge Diagnosis: * right leg/hip incisional skin infection - improving * concern for right hip joint infection - unlikely/ruled out, culture negative to date ____ Without mention of sepsis in the Discharge Summary, are you able to clarify if the sepsis diagnosis was: ( ) Ruled in ( x) Ruled out ( ) Other (please specify): ( ) Unable to determine. MTDD
== END 2023-12-10 14:09 | disposition home or self-care (01) | DRG 863 ==
LOC: ED 21:53 → SUATTDRO 23:57 → 3N 23:57

== ENCOUNTER 2024-02-12 08:33 | Observation (INO) ==
--- NOTE | 2024-02-02 09:50 | Anesthesiology Consultation ---
Date of Service February 02, 2024 Assessment & Plan Chart Review Chart Review: Acceptable Risk for Surgery and Patient NOT seen in Pre Admission Testing Consults Requested none History Surgery Operation Date: 02/12/24 08:50 Proposed Procedures p Left Total Hip Arthroplasty - Huan Andino MD Height/Weight Height: 5 ft 11 in Weight: 88.451 kg Allergies Allergy/AdvReac Type Severity Reaction Status Date / Time codeine Allergy Mild angry and Verified 02/01/24 15:34 sick to stomach doxepin AdvReac Severe irritation Verified 02/01/24 15:34 and anger sulfamethoxazole AdvReac elevated Verified 02/01/24 15:34 [From Bactrim] liver functions trimethoprim [From Bactrim] AdvReac elevated Verified 02/01/24 15:34 liver functions Medications Home Medications Medication Instructions Recorded Confirmed Last Taken gabapentin 600 mg tablet 600 mg PO TID #270 tabs 09/18/23 02/01/24 01/13/24 08:00 fluticasone propionate 50 1 spray intranasal QAM #48 grams 10/22/23 02/01/24 01/12/24 05:30 mcg/actuation nasal spray,suspension folic acid 1 mg tablet 1 mg PO HS #90 tabs 10/30/23 02/01/24 01/12/24 21:30 omeprazole 40 mg capsule,delayed 40 mg PO BID #60 caps 11/05/23 02/01/24 01/13/24 08:00 release 3-in-1 Commode #1 ea 11/10/23 12/04/23 Unknown Wheeled Walker #1 ea 11/10/23 12/04/23 Unknown sennosides 8.6 mg tablet (Senokot) 8.6 mg PO BID prevent constipation 11/11/23 02/01/24 01/12/24 21:30 14 days #28 tabs mecobalamin (vitamin B12) 1,000 1,000 mcg PO DAILY #60 ea 12/04/23 02/01/24 01/12/24 05:30 mcg lozenges polyethylene glycol 3350 17 gram 17 g PO DAILY PRN Constipation 12/16/23 02/01/24 Unknown oral powder packet (Miralax) tolnaftate 1 % topical powder 1 applic topical DAILY #45 grams 12/16/23 02/01/24 Unknown (Tinactin) Walking Cane #1 ea 01/19/24 Unknown ferrous sulfate 325 mg (65 mg 325 mg PO QPM 02/01/24 02/01/24 Unknown iron) tablet fremanezumab-vfrm 225 mg/1.5 mL 675 mg subcut Q30D 02/01/24 02/01/24 Unknown subcutaneous syringe (Ajovy Syringe) ondansetron 4 mg disintegrating 4 mg PO Q8H PRN nausea 02/01/24 02/01/24 Unknown tablet rizatriptan 10 mg tablet 10 mg PO UD PRN migraine headache 02/01/24 02/01/24 Unknown tramadol 50 mg tablet 50 - 100 mg PO Q6H PRN pain 02/01/24 02/01/24 Unknown Past Medical History Medical History Septic hip (11/2023) hx--surgical site infection History of surgical site infection (11/2023) right hip Mild aortic stenosis Abnormal LFTs "one is still elevated, other 2 are now normal" Migraine with aura and without status migrainosus, not intractable Anemia currently on iron supplement Sleep-disordered breathing pt states did not pursue advised sleep study in past Arm weakness chronic, bilat-denies change or worsening; follows with [facility] neurology Dysphagia chronic, denies choking, denies change or worsening Lumbar stenosis pt denies change in chronic back pain; reports chronic intermittent urinary incontinence without change or worsening BPH associated with nocturia Benign essential hypertension controlled, stable per pt Cervical disc disorder with radiculopathy chronic, patient denies change or worsening Chronic fatigue denies change or worsening Leukoplakia oral mucosa per patient noted in 2019 Memory loss or impairment chronic, denies impairment in daily activities Osteoarthritis Blood dyscrasia "does not process folic acid properly and has "mild" bleeding disorder" Neuropathy hands and feet History of asthma as a child-denies needing inhalers in adulthood Thoracic back pain chronic, denies change or worsening Past Family History Family History Brother Diabetes Cardiovascular disease Hypercholesteremia Hypertension Mother Diabetes Cardiovascular disease Hypercholesteremia Multiple sclerosis Hypertension Other No family history of adverse response to anesthesia Past Surgical History Surgical History Status post right hip replacement (11/2023) [facility] History of right hip replacement 11/2023 History of surgery on lower extremity fx tib/fib and ankle>hardware intact right leg *2017 @ [facility] H/O arthroscopy of left knee H/O arthroscopy of right knee x 2 History of esophagogastroduodenoscopy (EGD) most recent 01/2024 History of colonoscopy History of tooth extraction 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 Social History Smoking Status: Never smoker Do You Dip or Chew Tobacco: Yes (advised) Hx Alcohol Use: Yes (quit years ago) Alcohol type: beer alcohol intake frequency: a few times a week (14 drinks total in a week) Hx Substance Use: No substance use type: does not use Testing Laboratory Results Laboratory Tests 03/09/18 01/26/24 10:31 11:28 WBC 3.92 L Hgb 13.4 L Hct 41.2 L Plt Count 241 PT 10.4 INR 1.0 APTT 27 Sodium 139 Potassium 4.1 Chloride 102 Carbon Dioxide 31 Creatinine 0.96 Hemoglobin A1c 5.6 Electrocardiogram Date: 12/04/23 Findings: + NSR @ incomplete RBBB Echocardiogram Date: 10/30/23 EF: 55-60
[~2024-02-12 08:33] MED LIST: ROPIVACAINE 0.5% 5 MG/ML 30 ML VIAL ONE
--- NOTE | 2024-02-12 08:51 | History & Physical Bridge Note ---
Date of Service February 12, 2024 History & Physical Bridge Note I have examined the patient, reviewed the History & Physical and in the interval since the performance of the History & Physical I have noted the following changes of clinical significance: no changes noted
[2024-02-12] MEDS: METOCLOPRAMIDE HCL 10 MG TABLET PO SCH (09:33)
[2024-02-12] MEDS: FAMOTIDINE 20 MG TAB PO SCH (09:33)
[2024-02-12] MEDS: CeleBREX 200 MG CAP PO SCH (09:33)
[2024-02-12] MEDS: ACETAMINOPHEN 500 MG TAB PO SCH ×2 (09:34→16:01)
[2024-02-12] MEDS: LR 500ML BOLUS, THEN 15ML/HR IV SCH (09:37)
[2024-02-12] MEDS: LR 60ML/HR IV SCH (09:37)
[2024-02-12] MEDS: dexAMETHasone**PF** 10 MG/ML VIAL IV SCH (09:38)
[2024-02-12] MEDS ORDERED: MoRPHine SULFATE PF 1 MG/ML 10 ML AMP/VIAL ONE (09:58)
[2024-02-12] MEDS ORDERED: MIDAZOLAM HCL 1 MG/ML 2ML VIAL ONE (09:58)
[2024-02-12] MEDS: TRANEXAMIC ACID 1,000 MG **IV Pre-op IV SCH (10:58)
[2024-02-12] MEDS ORDERED: ePHEDrine sulfate 50 MG/ML AMP IV PRN (11:06)
[2024-02-12] MEDS ORDERED: ONDANSETRON INJ 2 MG/ML 2 ML VIAL IV PRN ×2 (11:06→14:13)
[2024-02-12] MEDS ORDERED: KETOROLAC 30 MG/ML VIAL IV PRN (11:06)
[2024-02-12] MEDS ORDERED: PROMETHAZINE 6.25 MG/50.25 ML BAG IV PRN (11:06)
[2024-02-12] MEDS ORDERED: NALOXONE HCL 0.4 MG/1 ML VIAL/CARP IV PRN ×2 (11:06→14:13)
[2024-02-12] MEDS ORDERED: NALOXONE HCL 1 MG in SODIUM CHLORIDE 0.9% 1,000 ML IV PRN (11:06)
[2024-02-12] MEDS ORDERED: MoRPHine SULFATE 2 MG/ML CARP IV PRN (11:06)
[2024-02-12] MEDS ORDERED: diphenhydrAMINE 50 MG/ML VIAL IV PRN (11:06)
[2024-02-12] MEDS ORDERED: LACTATED RINGER'S 500 ML IV PRN (11:06)
[2024-02-12] MEDS ORDERED: NALOXONE HCL 0.08 MG in SYRINGE 1.8 ML IV PRN (11:06)
[2024-02-12] MEDS ORDERED: NALBUPHINE HCL INJ 10 MG/ML AMP IV PRN (11:06)
[2024-02-12] MEDS ORDERED: MEPERIDINE HCL 25 MG/ML CARP/VIAL IV PRN (11:10)
[2024-02-12] MEDS ORDERED: DC INTRASPINAL MORPHINE SCH (11:15)
[2024-02-12] MEDS ORDERED: NO NARCOTICS OR SEDATIVES SCH (11:15)
[2024-02-12] MEDS: ceFAZolin 2000MG 2,000 MG/15 ML SYR IV SCH ×2 (11:23→18:21)
[2024-02-12] MEDS ORDERED: PHENYLEPHRINE 100MCG/ML 10ML SYR IV ONE (11:46)
[2024-02-12] MEDS: BUPIVACAINE 0.5 % 5 MG/1 ML MPF 30ML VIAL ONE (11:48)
[2024-02-12] MEDS ORDERED: ePHEDrine sulfate 50 MG/ML AMP ONE (11:49)
[2024-02-12] MEDS ORDERED: ONDANSETRON INJ 2 MG/ML 2 ML VIAL ONE (11:49)
[2024-02-12] MEDS ORDERED: LABETALOL HCL IV 5 MG/ML 20ML IV ONE (12:04)
[2024-02-12] MEDS ORDERED: PROPOFOL IV EMULSION 10 MG/ML 20 ML VIAL IV ONE ×3 (12:05)
[2024-02-12] MEDS ORDERED: GLYCOPYRROLATE 0.2 MG/ML VIAL ONE (12:15)
[2024-02-12] MEDS: TRANEXAMIC ACID 100 MG/ML 10 ML VIAL IV ONE (12:29)
[2024-02-12] MEDS ORDERED: KETOROLAC 30 MG/ML VIAL ONE (12:36)
[2024-02-12] MEDS: BUPIVACAINE/EPINEPHRINE 0.5% MPF 1:200,000 30 ML VIAL ONE (12:36)
--- NOTE | 2024-02-12 13:00 | Operative Report ---
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 I identified the patient and participated in the time-out.: Yes Procedure Operation Date: 02/12/24 10:20 Actual Procedures p Left Total Hip Arthroplasty, Uncemented(Left) - Huan Andino MD Surgeon Huan Andino MD Machining Department Supervisor Dalton Majano PA-C Estimated Blood Loss 100 Findings Consistent with Post-Op Diagnosis Operative findings revealed advanced left hip arthritis with collapse of the f emoral head consistent with avascular necrosis. He had severe secondary degenerative changes. Moderate-sized joint effusion. Specimens Left femoral head sent for pathology. 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 X-ray showed bilateral hip avascular necrosis. He underwent a right hip replacement several months ago and is recovered nicely. He continued be limited by his left hip pain. He elects proceed with left total hip arthroplasty. Description of Procedure Operative implants consist of: 1 Biomet G7 size 54 mm acetabular shell. 2. [place] hole digital content producer. 3. 6.5 cancellous acetabular screws 1 of 35 mm in length and 1 of 30 mm length. 4. Highly cross-linked polyethylene liner with a 54 mm outer diameter and 36 mm diameter and a posterior wall placed inferior and posterior.. 5. DePuy [place]ail size 12 KLA femoral stem. 6. +12/36 mm ceramic articular ball. The patient was taken the operating, identified, placed on the operating table in the supine position. All contact areas were appropriately padded. IV antibiotics fibra anesthesia team. A spinal anesthetic and been implemented holding area. The patient was then placed in the right lateral decubitus position. An axillary roll was placed. A Stulberg position was used for positioning. The left hip and leg were then prepped and draped in usual sterile fashion. A posterolateral approach to the left hip was then performed through a curvi linear incision centered over the greater trochanter. Sharp dissection Through subcutaneous tissue dental of the IT band gluteal fascia. The IT band gluteal fascia incised longitudinally in line with skin incision. The underlying greater bursa was excised. The piriformis and external rotators along with the posterior hip joint capsule then released from the posterior aspect the hip as a single layer. The hip was internally rotated and dislocated. A femoral neck osteotomy cut was made with Final Cut about 11 mm above the lesser trochanter. Femoral head was removed and sent for pathology. The femur was retracted anteriorly. Attention then drawn the acetabulum. The acetabular labrum was excised. Was extremely thick as was the posterior capsule. There was a clot of fibrinous scar tissue in the acetabulum which we curetted out. Sequential reaming the acetabular was then performed again with size 45 and progressing up to 53. I reamed a little bit with a 54 reamer and then placed a 54 mm cup in about 40 degrees lateral opening and 20 degrees of anteversion. It was fixed with two 6.5 screws. Anterior osteophyte was removed. Trial liner was placed. Attention drawn the femur. The proximal femur was entered with a [employer] cutter followed by canal finder. I then broached beginning size 8 and progressing to a 12. Got excellent fitted to 12. We trialed the hip and once again with a +5 articular ball. Fairly stable but soft tissue tension was extremely lax. Therefore we elect to place the same implants as the other side with a +12 articular ball. This provided more a ppropriate soft tissue tension. Leg lengths seem equal. It was fully stable. We elect to place these implants. All trial implants were removed. An apex hole digital content producer was placed. Highly cross-linked polyethylene liner with a posterior wall placed inferior and posterior was impacted in position. I did place a liner with a posterior wall in order to maximize his stability in flexion due to the underlying laxity. A +12 KLA femoral stem was impacted in position. A +12/36 mm ceramic articular ball was placed. The hip was located and once again found to be stable. Attention drawn toward closing. The wound was irrigated with coconuts pulsatile lavage solution. I did inject locally with 60 cc of half percent Marcaine with epinephrine. Posterior capsule and external rotators were then repaired through drill holes in the posterior trochanter with #2 Tycron suture. The IT band gluteal fascia then closed in 1 PDS suture in a running fashion to the subcutaneous tissue then closed with 2 layers the deep layer #1 Vicryl suture and subcutaneous tissues with 2-0 Dexon suture in a buried interrupted fashion. Skin was closed with skin stefan. Leg was then cleaned and dried and a sterile dressing with Xeroform, 4 fours, ABD pad and foam tape was applied. Patient then transferred to the recovery in stable condition. Patient tolerated procedure well and there were no complications. Dalton Majano, my physician information technology assistant, was present for the entire procedure. His assistance was essential and required for appropriate patient positioning, prepping and draping, surgical exposure, performing the technical details of the operation, placement the implants, closure of the wound, and placement of the sterile bandage. I attest to the content of the Intraoperative Record and any orders documented therein. Any exceptions are noted below.
--- NOTE | 2024-02-12 13:52 | Anesthesiology Progress Note ---
Date of Service February 12, 2024 Anesthesia Post Procedure Vital Signs Vital Signs: Temp Pulse Pulse Resp BP Pulse Ox O2 Del Method 02/12/24 13:30 36.4 C L 73 12 122/74 95 Room Air 02/12/24 13:25 75 12 120/62 100 Room Air 02/12/24 13:15 72 19 117/47 L 100 Oxymask 02/12/24 13:05 73 13 123/66 100 Oxymask 02/12/24 12:55 71 13 119/68 100 Oxymask 02/12/24 12:48 36 C L 75 14 118/65 100 Oxymask 02/12/24 09:06 37 C 71 20 142/85 H 98 Room Air O2 Flow Rate 02/12/24 13:30 02/12/24 13:25 02/12/24 13:15 2 02/12/24 13:05 6 02/12/24 12:55 6 02/12/24 12:48 6 02/12/24 09:06 Pain Intensity Left Hip: Pain Intensity: 6 Transfer of Care Handoff Completed per policy Notes Mental Status: alert / awake / arousable Patient Amnestic to Procedure: Yes Nausea / Vomiting: adequately controlled Pain: adequately controlled Airway Patency, RR, SpO2: stable & adequate BP & HR: stable & adequate Hydration State: stable & adequate Neuraxial Anesthesia: was administered and sensory block is resolving Anesthetic Complications: no major complications apparent
[2024-02-12] MEDS ORDERED: traMADol HCL 50 MG TABLET PO PRN ×2 (14:13)
[2024-02-12] MEDS ORDERED: MAGNESIUM HYDROXIDE SUSP 30 ML UDC PO PRN (14:13)
[2024-02-12] MEDS ORDERED: RIZATRIPTAN BENZOATE 10 MG TAB PO PRN (14:13)
[2024-02-12] MEDS ORDERED: ALUMINUM/MAGNESIUM SUSP 30 ML UDC PO PRN (14:13)
[2024-02-12] MEDS ORDERED: bisacodyL 10 MG SUPP PR PRN (14:13)
[2024-02-12] MEDS ORDERED: METOCLOPRAMIDE HCL INJ 5 MG/ML 2 ML VIAL IV PRN (14:13)
[2024-02-12] MEDS ORDERED: NON-FORMULARY MEDICATION (Fremanezumab-Vfrm [Ajovy Syringe] 225 mg/1.5 mL syringe) SQ SCH (14:13)
[2024-02-12] MEDS ORDERED: POLYETHYLENE (MIRALAX) 17 GM PACK PO PRN (14:13)
--- NOTE | 2024-02-12 14:29 | XRay Report ---
AP PELVIS, CROSSTABLE LATERAL LEFT HIP History: Left total hip arthroplasty. Degenerative arthritis. Postop. FINDINGS: The patient is status post a left total hip arthroplasty. The hardware is intact. No fractu re or dislocation. Skin stefan are in place. Prior right total arthroplasty. IMPRESSION: Left total hip arthroplasty. No evidence for hardware complication. ACT 112: Negative or not required by law. Electronically signed by: Sarthak Mujica M.D. 02/12/2024 2:28 PM
[2024-02-12] MEDS: Scopolamine 1 MG TDSY TD SCH (14:39)
[2024-02-12] MEDS: SODIUM CHLORIDE 0.9% 1,000 ML IV SCH ×2 (14:40→15:05)
[2024-02-12] MEDS: GABAPENTIN 600 MG TAB PO SCH (16:00)
[2024-02-12] MEDS: KETOROLAC 30 MG/ML VIAL IV SCH (16:01)
[2024-02-12] MEDS: Scopolamine CHECK PATCH PLACEMENT SCH (16:37)
[2024-02-12] MEDS: TRANEXAMIC ACID / 0.7% NACL 1,000 MG/100 ML BAG IV SCH (18:20)
[2024-02-12] MEDS: ASCORBIC ACID 500 MG TAB PO SCH (18:21)
[2024-02-12] MEDS: PANTOprazole 40 MG TAB PO SCH (20:41)
[2024-02-12] MEDS: SENNA 8.6 MG TAB PO SCH (20:41)
[2024-02-12] MEDS: FOLIC ACID 1 MG TAB PO SCH (20:41)
[2024-02-12] MEDS: ASPIRIN 81 MG ECTAB PO SCH (20:41)
[2024-02-12] MEDS: FERROUS SULFATE 325 MG TAB PO SCH (20:41)
[2024-02-12] MEDS: DOCUSATE SODIUM 100 MG CAP PO SCH (20:41)
[2024-02-12] MEDS ORDERED: SENNA 8.6 MG TAB PO SCH (21:00)
[2024-02-13 06:34] LABS: Basophils # (auto) 0.01 K/uL (0.00-0.20); Basophils % (auto) 0.1 %; Hematocrit (blood only) 36.6 % (42.0-52.0); Hemoglobin 11.8 g/dl (14.0-18.0); Immature Granulocytes # (auto) 0.06 K/uL (0.01-0.20); Immature Granulocytes % (auto) 0.5 %; Lymphocytes # (auto) 1.18 K/uL (1.20-3.40); Lymphocytes % (auto) 9.8 %; Mean Corpuscular Hemoglobin 26.9 pg (25.0-34.0); Mean Corpuscular Hgb Conc 32.2 g/dL (32.0-36.0); Mean Corpuscular Volume 83.6 fL (80.0-100.0); Mean Platelet Volume 9.7 fL (9.4-12.4); Monocytes % (auto) 7.5 %; Neutrophils # (auto) 9.89 K/uL (1.40-6.50); Neutrophils % (auto) 82.1 %; Platelet Count 240 K/uL (130-400); RDW Coefficient of Variation 12.8 % (11.5-14.5); Red Blood Count 4.38 M/uL (4.70-6.10); White Blood Count 12.04 K/ul (4.8-10.8)
[2024-02-13 06:52] LABS: BUN Creatinine Ratio 13.9 (10-20); Calcium 8.8 mg/dl (8.6-10.3); Creatinine Clr Calc Pharmacy 90.1 ml/min; Est GFR (Non-African American) 84.5 ml/min; Potassium 4.5 mmol/L (3.5-5.1)
[2024-02-13 07:21] VITALS: PULSE 63; RESP 18; TEMP 97.9; O2SAT 99
--- NOTE | 2024-02-13 07:22 | Orthopedic Progress Note ---
Date of Service February 13, 2024 Assessment & Plan (1) Status post left hip replacement: Plan: 53-year-old gentleman postop day 1 from left hip replacement doing pretty well. Some pain but manageable. Hips located. He is neurologically intact. Plan: 1. DVT prophylaxis including thigh-high teds, SCDs, and aspirin twice a day. 2. PT/OT. Weight-bear as tolerated. The left total hip protocol. 3. Pain control. Doing okay with current pain regimen. 4. Disposition. Plan to discharge to home with some home health today if he does okay in therapy. Admission and Anticipated Discharge Date Admission Date: February 12, 2024 Subjective 53-year-old gentleman postop day 1 from a left uncemented hip replacement. He is doing pretty well. Have a little difficulty lifting his leg and pain with ambulating but moderate and manageable. Really no pain at all while lying in bed. No chest pain or shortness of breath. Not feeling dizzy or lightheaded. Physical Exam Physical Exam: Physical examination was a pleasant thin middle-aged female. Lying bed looks pretty comfortable. Examination left hip and leg reveals well aligned. Dressings clean dry and intact. Leg lengths are equal. He is neurologically intact. Can dorsiflex and plantarflex his foot appropriately. Respiratory: normal respiratory effort, lungs clear to auscultation Cardiovascular: RRR, no murmur, no edema Gastrointestinal (Abdomen): normal bowel sounds, soft, nontender, no hepatosplenomegaly Results & Data Vital Signs (Past 12 Hours) Vital Signs Temp Pulse Resp BP Pulse Ox O2 Del Method 02/13/24 04:59 16 96 02/13/24 03:52 16 02/13/24 03:10 36.4 C L 71 14 116/63 96 Room Air 02/13/24 02:42 16 96 02/13/24 01:40 16 94 02/13/24 00:48 14 95 02/12/24 23:42 14 94 02/12/24 22:41 36.5 C 69 16 112/67 96 Room Air 02/12/24 22:38 16 97 02/12/24 22:33 14 97 02/12/24 21:38 16 93 02/12/24 20:38 16 96 02/12/24 19:20 36.7 C 83 14 121/66 96 Room Air Diagnostic Findings Hemoglobin is 11.8. Hematocrit is 36.6. Electrolytes are stable.
[2024-02-13] MEDS: TAMSULOSIN HCL 0.4 MG CAP PO PRN (08:04)
[2024-02-13] MEDS: MULTIVITAMIN TAB PO SCH (08:04)
[2024-02-13] MEDS: FLUTICASONE PROPIONATE NA SPR 16 GM BTL NAE SCH (08:04)
[2024-02-13] MEDS: dexAMETHasone 10 MG in SYRINGE 0 ML IV SCH (08:05)
[2024-02-13] MEDS: HYDROmorphone INJ 0.5 MG/0.5 ML SYR IV PRN (08:08)
[2024-02-13 10:58] VITALS: BP 116/63
[2024-02-13] MEDS: CYANOCOBALAMIN (B-12) 500 MCG TABLET PO SCH (12:31)
== END 2024-02-13 14:17 | disposition home health service (06) ==
LOC: ASU 08:33 → 3E 08:33